=== PATIENT | female | born 1950 | race Caucasian/White ===

== ENCOUNTER 2021-12-31 14:26 | Inpatient (IN) ==
[2021-12-31] MEDS ORDERED: SODIUM CHLORIDE 0.9% 500 ML IV ONE (15:27)
[2021-12-31] MEDS ORDERED: dexAMETHasone**PF** 10 MG/ML VIAL IV ONE (15:27)
--- NOTE | 2021-12-31 15:33 | Emergency Department Note ---
Impression & Plan Seizure, Glioblastoma multiforme of brain, Hypomagnesemia, Elevated troponin ED Provider Note NAME: KING LOPEZ AGE: 71 SEX: F ARRIVES VIA: Ambulance INFORMANT: EMS CHIEF COMPLAINT: Seizure PLAN: Disposition: Admit MEDICAL DECISION MAKING: The patient is a pleasant 71-year-old woman with a past medical history of Glioblastoma multiforme of the brain status post chemotherapy and radiation who presents to the emergency department accompanied by her and neighbor for evaluation of seizure-like episode that occurred prior to arrival. The reports that she was feeling weak this morning and took a nap early in the morning but then upon getting up and walking to the couch he noticed her chronic right-sided weakness become even more pronounced and she sat on the couch. She then describes did not feel well and suddenly began shaking her right arm and becoming unresponsive for several minutes. Following the sensation of this episode she was unable to speak as she had been. Her baseline prior to this episode was with ongoing right upper extremity and lower extremity weakness but able to use her right side to some degree to ambulate and grasp things. She has fluctuating ability to speak sometimes using the incorrect words or not understanding direction but other times able to do so. They deny that the patient is on any steroids or seizure medicines. They deny that she was ever on any seizure medicines. On arrival the patient is fatigued, but alert to self but confused to situation and place. Afebrile. HR 100s, BP 140s/90s and VS otherwise stable. She is able to follow commands with her left upper, bilateral lower extremities. She is u nable to follow commands with her right upper extremity and appears to have complete anesthesia of the right upper extremity even to pain. Given the patient's new onset seizures in the setting of her GBM she was treated empirically with 10 mg of IV dexamethasone and 20/kg of IV Keppra. EKG without overt acute ischemia. Chest x-ray negative for acute cardiopulmonary process. WBC 4K nonspecific. H/H and platelets within normal limits. Chemistry without metabolic acidosis. Magnesium 1.4 with repletion initiated. High-sensitivity troponin 16.6, nonspecific. Lipase is not elevated. UA with 1+ ketones consistent with the patient's clinical dry appearance. No evidence of infection. COVID-19 RNA, SARA test was negative. CT of the head was performed and demonstrates stable to improved findings with decrease in size of the left lobular parietal periventricular mass with improved mass-effect and decrease in size of left temporal horn dilatation when compared to April 2021. Note is made of peripheral hyperdense foci within the lesion that favor post treatment changes with a small amount of hemorrhage less likely. Case was discussed with [facility] [place], Dr. Alberto. Appreciate consultation/recommendations and reports that her described imaging findings are similar to her recent studies in their facility. Stable GBM findings on imaging and presentation that is consistent with seizure reasonable to keep the patient here for further management of this as there is no specialized care that is needed at this time. Agrees with continuing Keppra starting at 500 twice daily and increasing if additional treatment is needed. Given stable imaging findings no need to continue steroids at this time. Case was discussed with [place]. Vanegas, [facility] [place], who will evaluate the patient for admission. Triage Nursing notes reviewed and agree them. Prior medical records reviewed Vital Signs: reviewed and remarkable for tachycardia/hypertension. Differential diagnosis: Epilepsy, infection, hypoglycemia, electrolyte abnormalities, cardiac sources, intracerebral event, trauma, toxicologic, neurologic, syncope, as well as other pathologies. ER treatment provided: See below. Diagnostics interpreted by me: ECG: Normal sinus rhythm, 91 bpm, no ectopy, no overt ST elevation or depression, QTC 477, QRS 86. Cardiac Monitoring: An order for continuous cardiac monitoring was placed and demonstrated Normal sinus rhythm, 91 bpm, no ectopy. Laboratory studies: See below Imaging studies: See below Consultation(s): Dr. Alberto, [facility] Neuro[place]. Dr. Vanegas, [facility] [place]. HPI: The patient is a pleasant 71-year-old woman with a past medical history of Glioblastoma multiforme of the brain status post chemotherapy and radiation who presents to the emergency department accompanied by her and neighbor for evaluation of seizure-like episode that occurred prior to arrival. The reports that she was feeling weak this morning and took a nap early in the morning but then upon getting up and walking to the couch he noticed her chronic right-sided weakness become even more pronounced and she sat on the couch. She then describes did not feel well and suddenly began shaking her right arm and becoming unresponsive for several minutes. Following the sensation of this episode she was unable to speak as she had been. Her baseline prior to this episode was with ongoing right upper extremity and lower extremity weakness but able to use her right side to some degree to ambulate and grasp things. She has fluctuating ability to speak sometimes using the incorrect words or not understanding direction but other times able to do so. They deny that the patient is on any steroids or seizure medicines. They deny that she was ever on any seizure medicines. ROS: See above HPI for pertinent positives & negatives. A total of 10 systems reviewed and were otherwise negative. VITALS:See Below PHYSICAL EXAMINATION: GENERAL: Awake, alert, fatigued-appearing, in no distress, BMI 36.4. HENT: Normocephalic, atraumatic. Oropharynx with dry mucous membranes and otherwise unremarkable. EYES: Normal conjunctiva. Sclera non-icteric. EOMI. No nystamgus. PEARRL. NECK: Supple. No nuchal rigidity. FROM. No JVD. RESPIRATORY: Clear to auscultation. CARDIAC: Tachycardic rate, normal rhythm. Extremities warm and well perfused. Pulses equal. ABDOMEN: Soft, non-distended. No tenderness to palpation. No rebound or guarding. No masses. RECTAL: Deferred. MUSCULOSKELETAL: Chest examination reveals no tenderness. The back is symmetrical on inspection without obvious abnormality. There is no CVA tenderness to palpation. No joint edema. LOWER EXTREMITIES: Calves are equal size bilaterally and non-tender. No edema. No discoloration. NEURO: She is able to follow commands with her left upper, bilateral lower ext remities. She is unable to follow commands with her right upper extremity and appears to have complete anesthesia of the right upper extremity. SKIN: No rash or jaundice noted. ED COURSE: Critical Care: I have personally spent greater than 75 minutes of critical care time in the direct management of this patient. This includes bedside care, interpretation of diagnostic studies, and testing, discussion with consultants, patient, and family members, and other required patient management activities. This 75 minutes is in excess of all separately billable procedures. Williams Ramos MD Past Med/Surg History Medical History Alert and oriented will have difficulty finding the "right words" at times. little feeling in the right arm and right leg. uses walker. Chronic steroid use GBM (glioblastoma multiforme) Biopsy 04/13/21. no surgery. had radiation treatments, finished in June 2021. Glioblastoma multiforme of brain (04/13/21) Hyperlipidemia Hypertension Lichen simplex chronicus Obesity Type 2 diabetes mellitus IDDM Surgical History History of blepharoplasty bilateral History of cataract surgery Left eye History of colonoscopy History of dental surgery Status post bilateral knee replacements Family History Mother Hypertension Father , 84yo Dementia Hypertension Stroke Brother Stroke Cancer of kidney Sister Hypertension Daughter No problems noted. Other Family history non-contributory Social History Smoking Status: Never smoker Second Hand Exposure: No; Hx Alcohol Use: No Hx Substance Use: No Preferred Language: American Communication Ability: Impaired Communication Ability Comment: aphasia Visual Impairment: No Limitations Hearing Ability: Hard of Hearing Insurance Clerk Required: No Beliefs That Will Affect Care: None marital status: Current Living Situation: Family Current Living Situation Comment: and daughter are caregivers current occupational status: retired current occupation: Teacher Other Information That Helps Us Care for You: No Feels Safe at Home: Yes Safety Concerns: Feels Safe At This Time caffeine: Yes (1 cup/day) during the past year weight has: decreased > 10 lbs Assistive Devices: Glasses and Walker Allergies Allergies Allergy/AdvReac Type Severity Reaction Status Date / Time No Known Allergies Allergy Unknown * Verified 12/31/21 15:08 Home Meds Home Medications Medication Instructions Recorded Confirmed atorvastatin 40 mg tablet 40 mg PO HS 03/31/21 12/31/21 irbesartan 75 mg tablet 75 mg PO QAM 03/31/21 12/31/21 metformin 1,000 mg tablet 1,000 mg PO BID 03/31/21 12/31/21 ondansetron HCl 8 mg tablet 8 mg PO Q8H PRN Nausea 05/10/21 12/31/21 fluoxetine 10 mg capsule (Prozac) 10 mg PO QAM 05/31/21 12/31/21 docusate sodium 100 mg capsule 100 mg PO BID PRN Constipation 12/31/21 12/31/21 insulin glargine 100 unit/mL (3 20 unit subcut HS 12/31/21 12/31/21 mL) subcutaneous pen (Lantus Solostar U-100 Insulin) nystatin 100,000 unit/gram topical 1 applic topical TID 12/31/21 12/31/21 cream temozolomide 100 mg capsule 200 mg PO UD 12/31/21 12/31/21 temozolomide 140 mg capsule 140 mg PO UD 12/31/21 12/31/21 Results & Data (ED) Vital Signs Vital Signs - 24 hr 12/31/21 14:30 12/31/21 15:02 12/31/21 16:05 Temperature 36.4 C L Temperature Source Oral Pulse Rate 102 H 85 Pulse Rate [Radial] Pulse Rhythm Regular Pulse Rhythm [Radial] Pulse Strength [Radial] Respiratory Rate 17 18 Respiratory Effort / Characteristics Non-Labored Spontaneous Respiratory Depth Normal Respiratory Pattern Regular Blood Pressure 141/98 H Blood Pressure [Left Arm] Blood Pressure Mean 112 Blood Pressure Mean [Left Arm] Blood Pressure Position Lying Blood Pressure Position [Left Arm] Pulse Oximetry 97 100 99 Oxygen Delivery Method Room Air Room Air Room Air Sepsis Recent Fever Within 48 Hours No Sepsis New/Unexplained Change in Mental Status Yes Sepsis Action Taken by Nursing No Action Required 12/31/21 16:05 Temperature Temperature Source Pulse Rate Pulse Rate [Radial] 85 Pulse Rhythm Pulse Rhythm [Radial] Regular Pulse Strength [Radial] Normal Respiratory Rate 18 Respiratory Effort / Characteristics Non-Labored Spontaneous Respiratory Depth Normal Respiratory Pattern Regular Blood Pressure Blood Pressure [Left Arm] 143/85 H Blood Pressure Mean Blood Pressure Mean [Left Arm] 104 Blood Pressure Position Blood Pressure Position [Left Arm] Lying Pulse Oximetry 98 Oxygen Delivery Method Room Air Sepsis Recent Fever Within 48 Hours Sepsis New/Unexplained Change in Mental Status Sepsis Action Taken by Nursing Laboratory Data Attestation: I reviewed the patient's lab results. Result diagrams: 12/31/21 14:46 12/31/21 14:46 Lab Results 12/31/21 12/31/21 12/31/21 Range/Units 14:46 14:46 14:46 WBC 4.44 L (4.8-10.8) K/ul RBC 4.14 (3.93-5.22) M/uL Hgb 12.7 (12.0-16.0) g/dl Hct 40.6 (34.1-44.9) % MCV 98.1 (80.0-100.0) fL MCH 30.7 (25.0-34.0) pg MCHC 31.3 L (32.0-36.0) g/dL RDW Std Deviation 50.4 H (36.4-46.3) fL RDW Coeff of Meghan 13.9 (11.5-14.5) % Plt Count 151 (130-400) K/uL MPV 12.0 (9.4-12.3) fL Immature Gran % (Auto) 0.2 % Neut % (Auto) 79.7 % Lymph % (Auto) 10.1 % [place] % (Auto) 8.6 % Eos % (Auto) 0.9 % Baso % (Auto) 0.5 % Neut # (Auto) 3.54 (1.4-6.5) K/uL Lymph # (Auto) 0.45 L (1.2-3.4) K/uL [place] # (Auto) 0.38 (0.24-0.82) K/uL Eos # (Auto) 0.04 (0-0.50) K/uL Baso # (Auto) 0.02 (0-0.2) K/uL Immature Gran # (Auto) 0.01 (0.00-0.02) K/uL PT 10.6 (9.0-12.0) Seconds INR 1.0 (0.9-1.1) APTT 23.5 (21.0-31.0) Seconds PTT Ratio 0.9 Sodium 138 (136-145) mmol/L Potassium 4.0 (3.5-5.1) mmol/L Chloride 102 (98-107) mmol/L Carbon Dioxide 23 (21-32) mmol/L Anion Gap 13 H (3-11) BUN 8 (6-23) mg/dl Creatinine 0.53 L (0.6-1.2) mg/dl Est Cr Clr Drug Dosing 122.9 ml/min Est GFR ( Amer) 111.5 ml/min Est GFR (Non-Af Amer) 96.2 ml/min BUN/Creatinine Ratio 15.1 (10-20) Glucose 226 H (70-99(Fasting)) mg/dl Calcium 9.3 (8.5-10.1) mg/dl Phosphorus 3.8 (2.5-4.9) mg/dl Magnesium 1.4 L (1.7-2.4) mg/dl Total Bilirubin 0.5 (0.2-1.0) mg/dl AST 19 (13-39) U/L ALT 12 (7-52) U/L Alkaline Phosphatase 55 (34-104) U/L Troponin I High Sens 16.6 H (0-14) pg/ml Total Protein 7.1 (6.0-8.3) gm/dl Albumin 4.1 (3.4-5.0) gm/dl Globulin 3.0 (2.5-4.0) gm/dl Albumin/Globulin Ratio 1.4 (0.9-2) Lipase 52 (11-82) U/L Urine Color Urine Appearance (Clear) Urine pH (4.5-7.5) Ur Specific [place] (1.000-1.030) Urine Protein (Negative) Urine Glucose (UA) (Negative) Urine Ketones (Negative) Urine Blood (Negative) Urine Nitrite (Negative) Urine Bilirubin (Negative) Urine Urobilinogen (Negative) Ur Leukocyte Esterase (Negative) Urine WBC (Auto) (0-5) /hpf Urine RBC (Auto) (0-4) /hpf U Hyaline Cast (Auto) (0-5) /lpf U Epithel Cells (Auto) (0-5) /lpf Urine Bacteria (Auto) (Negative) SARS-CoV-2, RNA, NAAT (NEGATIVE) 12/31/21 12/31/21 Range/Units 15:42 16:03 WBC (4.8-10.8) K/ul RBC (3.93-5.22) M/uL Hgb (12.0-16.0) g/dl Hct (34.1-44.9) % MCV (80.0-100.0) fL MCH (25.0-34.0) pg MCHC (32.0-36.0) g/dL RDW Std Deviation (36.4-46.3) fL RDW Coeff of Meghan (11.5-14.5) % Plt Count (130-400) K/uL MPV (9.4-12.3) fL Immature Gran % (Auto) % Neut % (Auto) % Lymph % (Auto) % [place] % (Auto) % Eos % (Auto) % Baso % (Auto) % Neut # (Auto) (1.4-6.5) K/uL Lymph # (Auto) (1.2-3.4) K/uL [place] # (Auto) (0.24-0.82) K/uL Eos # (Auto) (0-0.50) K/uL Baso # (Auto) (0-0.2) K/uL Immature Gran # (Auto) (0.00-0.02) K/uL PT (9.0-12.0) Seconds INR (0.9-1.1) APTT (21.0-31.0) Seconds PTT Ratio Sodium (136-145) mmol/L Potassium (3.5-5.1) mmol/L Chloride (98-107) mmol/L Carbon Dioxide (21-32) mmol/L Anion Gap (3-11) BUN (6-23) mg/dl Creatinine (0.6-1.2) mg/dl Est Cr Clr Drug Dosing ml/min Est GFR ( Amer) ml/min Est GFR (Non-Af Amer) ml/min BUN/Creatinine Ratio (10-20) Glucose (70-99(Fasting)) mg/dl Calcium (8.5-10.1) mg/dl Phosphorus (2.5-4.9) mg/dl Magnesium (1.7-2.4) mg/dl Total Bilirubin (0.2-1.0) mg/dl AST (13-39) U/L ALT (7-52) U/L Alkaline Phosphatase (34-104) U/L Troponin I High Sens (0-14) pg/ml Total Protein (6.0-8.3) gm/dl Albumin (3.4-5.0) gm/dl Globulin (2.5-4.0) gm/dl Albumin/Globulin Ratio (0.9-2) Lipase (11-82) U/L Urine Color Yellow Urine Appearance Clear (Clear) Urine pH 6.5 (4.5-7.5) Ur Specific [place] 1.015 (1.000-1.030) Urine Protein 1+ H (Negative) Urine Glucose (UA) 2+ H (Negative) Urine Ketones 1+ H (Negative) Urine Blood Negative (Negative) Urine Nitrite Negative (Negative) Urine Bilirubin Negative (Negative) Urine Urobilinogen Negative (Negative) Ur Leukocyte Esterase Negative (Negative) Urine WBC (Auto) 1-5 (0-5) /hpf Urine RBC (Auto) 0-4 (0-4) /hpf U Hyaline Cast (Auto) 1-5 (0-5) /lpf U Epithel Cells (Auto) >30 H (0-5) /lpf Urine Bacteria (Auto) Negative (Negative) SARS-CoV-2, RNA, NAAT NEGATIVE (NEGATIVE) Administered Medications Atorvastatin Calcium (Atorvastatin 40 Mg Tab) 40 mg PO HS MARIA Stop: 01/30/22 20:59 Last Admin: 12/31/21 22:06 Dose: Not Given Documented By: JACKIE Acetaminophen (Ofirmev) 1,000 mg in 100 mls @ 400 mls/hr IV Q8H PRN PRN Reason: pain or fever Stop: 01/03/22 21:56 Last Infusion: 12/31/21 22:38 Dose: 0 mls/hr Documented By: Admin: 12/31/21 22:23 Dose: 400 mls/hr Documented By: JACKIE Insulin Aspart (Insulin Aspart Per Unit) 0 units SC Q6 MARIA Stop: 01/31/22 01:59 Last Admin: 01/01/22 02:19 Dose: 3 units Documented By: JACKIE Co-signed By: JUAN LUIS Insulin Glargine (Lantus Per Unit Charge) 10 units SQ BID MARIA Stop: 01/30/22 20:59 Last Admin: 12/31/21 22:06 Dose: 10 units Documented By: JACKIE Co-signed By: NATHALIE Magnesium Chloride (Magnesium Chloride W/Calcium 64mg Delayed Rel Tab) 64 mg PO BID MARIA Stop: 01/30/22 20:59 Last Admin: 12/31/21 22:06 Dose: Not Given Documented By: JACKIE Nystatin (Nystatin Cr 15 Gm Tube) 1 appln EXT TID MARIA Stop: 01/30/22 20:59 Last Admin: 12/31/21 22:07 Dose: 1 appln Documented By: JACKIE Discontinued Medications Dexamethasone Sodium Phosphate (DexamethasonePf 10 Mg/Ml Vial) 10 mg IV NOW ONE Stop: 12/31/21 15:28 Last Admin: 12/31/21 15:49 Dose: 10 mg Documented By: JENNYFER Sodium Chloride (Nss) 500 mls @ 999 mls/hr IV .Q31M ONE Stop: 12/31/21 15:57 Last Infusion: 12/31/21 16:15 Dose: 0 mls/hr Documented By: Admin: 12/31/21 15:50 Dose: 999 mls/hr Documented By: JENNYFER Levetiracetam 2,000 mg/ Sodium (Chloride) 270 mls @ 999 mls/hr IV NOW STA Stop: 12/31/21 15:43 Last Infusion: 12/31/21 16:15 Dose: 0 mls/hr Documented By: Admin: 12/31/21 15:50 Dose: 999 mls/hr Documented By: JENNYFER Magnesium Sulfate/Dextrose (Magnesium Sulfate / D5w) 1 gm in 100 mls @ 100 mls/hr IV Q1H MARIA Stop: 12/31/21 19:21 Last Infusion: 12/31/21 23:11 Dose: 0 mls/hr Documented By: Admin: 12/31/21 22:06 Dose: 100 mls/hr Documented By: Infusion: 12/31/21 20:52 Dose: 0 mls/hr Documented By: Admin: 12/31/21 18:05 Dose: 100 mls/hr Documented By: JENNYFER Insulin Aspart (Insulin Aspart Per Unit) 0 units SC ACHS MAIRA Stop: 01/30/22 20:59 Last Admin: 12/31/21 22:05 Dose: 4 units Documented By: JACKIE Co-signed By: NATHALIE Magnesium Sulfate/Dextrose (Magnesium Sulfate 1gm / D5w Bag) Confirm Administered Dose 1 gm IV .STK-MED ONE Stop: 12/31/21 21:36 Last Admin: 12/31/21 22:07 Dose: Not Given Documented By: JACKIE Ondansetron HCl (Ondansetron Inj 2 Mg/Ml 2 Ml Vial) Confirm Administered Dose 4 mg .ROUTE .STK-MED ONE Stop: 12/31/21 16:22 Last Admin: 12/31/21 16:26 Dose: 4 mg Documented By: JENNYFER Imaging Data Radiologist's Impression: Head CT 12/31/21 15:[address] DOSE: 1035.81 mGycm HISTORY: Seizure, h/o GBM, TECHNIQUE: Multiaxial CT images of the head were performed without the use of intravenous contrast. Automated exposure control was utilized for this study. A dose lowering technique was utilized adhering to the principles of ALARA. Comparison: Head CT outside hospital 04/05/2021 and 04/13/2021. Radiation oncology head CT 05/03/2021. Findings: The paranasal sinuses and mastoid air cells are clear. The calvarium and skull base are intact. There is again noted an approximately 4 cm lobular hypodense left parietal periventricular lesion. Exact dimensions are difficult to determine due to the infiltrative appearance of this lesion. This demonstrates peripheral hyperdense foci which was also seen on the prior studies and has slightly improved. This lesion appears to have slightly decreased in size compared to the 2020 examinations. This results in mass effect along the atrium of the left lateral ventricle and mild dilatation of the left temporal horn. This has also slightly improved in the interval. A peripheral hyperdense foci favor posttreatment changes and/or calcification. Small amount of hemorrhage associated with the mass is considered less likely but not entirely excluded. There is no midline shift or acute hemorrhage. Mild periventricular white matter hypodensity remains unchanged. This could be due to a combination of microvascular ischemic changes and post radiation change. Impression: 1. Slight decrease in size in the lobular left parietal periventricular mass with improved mass effect along the atrium of the left lateral ventricle and decrease in size in the left temporal horn dilatation. 2. There are scattered peripheral hyperdense foci within this lesion which favor posttreatment changes and/or calcification. A small amount of hemorrhage associated with this mass could also have a similar appearance but is considered less likely. Overall, this has also improved in the interval. 3. No acute infarct or midline shift. ACT 112: Negative or not required by law. Electronically signed by: J Carlos Borges M.D. 12/31/2021 5:09 PM Discharge Plan Visit Data Chief Complaint: Altered Mental Status Stated Complaint: AMS Hx Brain Tumor ED Provider: Williams Ramos Discharge Problem: Seizure, Glioblastoma multiforme of brain, Hypomagnesemia, Elevated troponin Patient Disposition: Admitted As Inpatient Discharge Instructions Interventions: ED Discharge Assessment Last Done: 12/31/21 19:51
--- NOTE | 2021-12-31 15:47 | XRay Report ---
XR chest 1V portable HISTORY: 71 years-old Female Chest Pain acute atypical chest pain COMPARISON: 01/20/2011 TECHNIQUE: AP view of the chest FINDINGS: Cardiac silhouette is enlarged. Lungs are hypoinflated. No pneumothorax, pleural effusion, airspace c onsolidation or overt pulmonary edema. Bones of the chest appear grossly intact. Degenerative changes of the shoulders and spine. IMPRESSION: Hypoinflation without acute process. ACT 112: Negative or not required by law. The above report was generated using voice recognition software. It may contain grammatical, syntax o r spelling errors. Electronically signed by: Luis Medina M.D. 12/31/2021 3:45 PM
--- NOTE | 2021-12-31 15:55 | Electrocardiogram Report ---
Test Reason : Blood Pressure : / mmHG Vent. Rate : 091 BPM Atrial Rate : 091 BPM P-R Int : 144 ms QRS Dur : 086 ms QT Int : 388 ms P-R-T Axes : 004 -43 041 degrees QTc Int : 477 ms Normal sinus rhythm Left axis deviation Abnormal ECG When compared with ECG of 20-JAN-2011 10:52, Vent. rate has increased BY 36 BPM T wave inversion no longer evident in Inferior leads QT has lengthened Confirmed by Jace Berry ([id number]) on 12/31/2021 3:55:13 PM Referred By: REFERRED SELF Confirmed By:Jace Berry
[2021-12-31] MEDS ORDERED: ONDANSETRON INJ 2 MG/ML 2 ML VIAL ONE (16:21)
[2021-12-31 16:24] LABS: Appearance Urine Clear (Clear); Bacteria Urine Automated Negative (Negative); Bilirubin Urine Negative (Negative); Blood Urine Negative (Negative); Color Urine Yellow; Epithelial Cell Urine Auto >30 /lpf (0-5); Glucose Urine UA 2+ (Negative); Ketones Urine 1+ (Negative); Leukocyte Esterase Urine Negative (Negative); Nitrite Urine Negative (Negative); Protein Urine 1+ (Negative); RBC Urine Automated 0-4 /hpf (0-4); Specific Gravity Urine 1.015 (1.000-1.030); Urobilinogen Urine Negative (Negative); pH Urine 6.5 (4.5-7.5)
[2021-12-31 16:43] LABS: Basophils # (auto) 0.02 K/uL (0-0.2); Basophils % (auto) 0.5 %; Eosinophils # (auto) 0.04 K/uL (0-0.50); Eosinophils % (auto) 0.9 %; Hematocrit (blood only) 40.6 % (34.1-44.9); Hemoglobin 12.7 g/dl (12.0-16.0); Immature Granulocytes # (auto) 0.01 K/uL (0.00-0.02); Immature Granulocytes % (auto) 0.2 %; Lymphocytes # (auto) 0.45 K/uL (1.2-3.4); Lymphocytes % (auto) 10.1 %; Mean Corpuscular Hemoglobin 30.7 pg (25.0-34.0); Mean Corpuscular Hgb Conc 31.3 g/dL (32.0-36.0); Mean Corpuscular Volume 98.1 fL (80.0-100.0); Monocytes # (auto) 0.38 K/uL (0.24-0.82); Monocytes % (auto) 8.6 %; Neutrophils # (auto) 3.54 K/uL (1.4-6.5); Neutrophils % (auto) 79.7 %; Platelet Count 151 K/uL (130-400); RDW Coefficient of Variation 13.9 % (11.5-14.5); RDW Standard Deviation 50.4 fL (36.4-46.3); Red Blood Count 4.14 M/uL (3.93-5.22); White Blood Count 4.44 K/ul (4.8-10.8)
[2021-12-31 16:53] LABS: Partial Thromboplastin Ratio 0.9; Partial Thromboplastin Time 23.5 Seconds (21.0-31.0); Prothrombin Time 10.6 Seconds (9.0-12.0)
[2021-12-31 16:55] LABS: Albumin Globulin Ratio 1.4 (0.9-2); Albumin Level 4.1 gm/dl (3.4-5.0); BUN Creatinine Ratio 15.1 (10-20); Bilirubin,Total 0.5 mg/dl (0.2-1.0); Calcium 9.3 mg/dl (8.5-10.1); Creatinine Clr Calc Pharmacy 122.9 ml/min; Est GFR (African American) 111.5 ml/min; Est GFR (Non-African American) 96.2 ml/min; Magnesium 1.4 mg/dl (1.7-2.4); Phosphorus 3.8 mg/dl (2.5-4.9); Total Protein 7.1 gm/dl (6.0-8.3)
[2021-12-31 17:01] LABS: Troponin I High Sensitivity 16.6 pg/ml (0-14)
--- NOTE | 2021-12-31 17:10 | CT Scan Report ---
HEAD CT NONCONTRAST CT DOSE: 1035.81 mGycm HISTORY: Seizure, h/o GBM, TECHNIQUE: Multiaxial CT images of the head were performed without the use of intravenous contrast. A utomated exposure control was utilized for this study. A dose lowering technique was utilized adheri ng to the principles of ALARA. Comparison: Head CT outside hospital 04/05/2021 and 04/13/2021. Radiation oncology head CT 05/03/2021 . Findings: The paranasal sinuses and mastoid air cells are clear. The calvarium and skull base are int act. There is again noted an approximately 4 cm lobular hypodense left parietal periventricular lesio n. Exact dimensions are difficult to determine due to the infiltrative appearance of this lesion. Thi s demonstrates peripheral hyperdense foci which was also seen on the prior studies and has slightly i mproved. This lesion appears to have slightly decreased in size compared to the 2020 examinations. Th is results in mass effect along the atrium of the left lateral ventricle and mild dilatation of the l eft temporal horn. This has also slightly improved in the interval. A peripheral hyperdense foci favo r posttreatment changes and/or calcification. Small amount of hemorrhage associated with the mass is considered less likely but not entirely excluded. There is no midline shift or acute hemorrhage. Mild periventricular white matter hypodensity remains unchanged. This could be due to a combination of mi crovascular ischemic changes and post radiation change. Impression: 1. Slight decrease in size in the lobular left parietal periventricular mass with improved mass effec t along the atrium of the left lateral ventricle and decrease in size in the left temporal horn dilat ation. 2. There are scattered peripheral hyperdense foci within this lesion which favor posttreatment change s and/or calcification. A small amount of hemorrhage associated with this mass could also have a tl lar appearance but is considered less likely. Overall, this has also improved in the interval. 3. No acute infarct or midline shift. ACT 112: Negative or not required by law. Electronically signed by: J Carlos Borges M.D. 12/31/2021 5:09 PM
--- NOTE | 2021-12-31 18:04 | History & Physical Report ---
Date of Service December 31, 2021 Assessment & Plan (1) Glioblastoma multiforme of brain: Plan: Alize, hx of glioblastoma - Discussed w/ [facility] [place] [facility]. Imaging consistant with prior, low suspicion for stroke. Recommend seizure treatment -Loaded with Keppra in the emergency department Continue Keppra 500 mg twice daily. Ativan 4 mg for breakthrough seizure if needed Hypomagnesemic, got 1 g in ER. Hypomagnesemia likely contributing to seizure threshold Trend magnesium, goal level 2.0 Patient has had difficult repletion in the past, will add Slow-Mag to minimize urinary excretion Continue IV repletion at this time, patient at risk of lowered threshold Patient does have aphasia at baseline which was worsened following her seizure, gradually improving No prior treatment with antiseizure medications EKG on admission: Sinus rhythm. QT 477. No acute ischemic findings - MRI w/ contrast pending. Persistent arm numbness and residual aphasia, will obtain EEG as well. Neurology consulted - BSG 180s on arrival, 230 AM prior to seizure Glioblastoma Multiforme Currently on Temodar/bevacizumab Has received radiation therapy, last in April Received Decadron in ER, additional Decadron was not recommended on consultation with neurosurgery MRI ordered, pending May obtain EEG in the morning, neurology consulted CT was reviewed with neurosurgery on admission as above, no acute change in imaging. CT does note some areas which could be concerning for small areas of hemorrhage, these are unchanged from prior. Type 2 diabetes mellitus On glargine 20 units nightly, metformin 1 g twice daily - SSI based on basal Lantus 20 units nightly: Lantus 10 twice daily, correction factor 40, carb ratio 15 Hypertension Irbesartan 75 mg p.o. every morning DVT prophylaxis: SCDs Diet: Type II DM if able to pass speech/swallow bedside assessment and alert enough Disposition: PCU with seizure monitoring Code Status: Surrogate DM Cornell Zuñiga [phone] or [phone], or Diana Rodriguez (daughter) [phone]. DNR/DNI, confirmed with family at bedside (2) Seizure: (3) Type 2 diabetes mellitus: (4) Hyperlipidemia: (5) Hypertension: (6) GBM (glioblastoma multiforme): (7) Hypomagnesemia: History of Present Illness Primary Care Provider: Annette Wolff is a 71-year-old female with a past medical history of glioblastoma multiforme [facility] on Temodar/Mvasi and who last had radiation in April who presents to the ER after worsening right greater than left-sided weakness followed by an episode of unresponsiveness with myoclonic jerking which lasted a few minutes and residual aphasia which gradually improved. Patient was seen in the ER CThead was discussed with neurosurgery Dr. Blackburn[employer] that all imaging was consistent with their prior records and that there were no new changes, and that her symptoms were likely caused by a seizure. Stroke was not suspected as an underlying etiology. Transfer to higher level of care was discussed between neurosurgery in the ER, patient was not recommended for transfer but was recommended for seizure treatment and to be followed overnight. Mariella is seen w . Patient is alert and answers most questions, fatigued and occasionally falls asleep. She has difficulty with residual aphasia, collateral was collected with the assistance of her Upon waking this morning and worsened weakness on her R side compared to normal Ate breakfast, was tired, and layed down for a few hours Got up later in the day and was very weak, could barely walk to her recliner. Sat in the recliner and started to feel discomfort in her R hand which started to curl up and then started shaking. Shortly after her whoel body started shaking, eyes rolled back, and had funny sounds while breathing and seemed to pass out. called 911. Episode lasted a few minutes. No bowel or bladder incontinence. Currently speech 50-60% back to normal, does have residual aphasia. No impaired cognition at baseline. Pt has chronic diarrhea for months off and on, is on Avastan and is thought to be a side effect. Denies abdominal pain Endorses chronic right arm and leg pain/paresthesia, thought to be neuropathic. Tried gabapentin once but had severe sedation with this and has deferred further. Patient reports she is hungry and would like to eat Medical History: Reviewed Medications: Reviewed took medications this morning Surgical History: Reviewed Allergies: Reviewed Social History: No current or former tobacco use. No alcohol use. No medical marijuana Code Status: Surrogate DM Cornell Zuñiga [phone] or [phone], or Diana Rodriguez (daughter) [phone]. DNR/DNI, confirmed with family at bedside Allergies Allergy/AdvReac Type Severity Reaction Status Date / Time No Known Allergies Allergy Unknown * Verified 12/31/21 15:08 Home Medications Medication Instructions Recorded Confirmed Type atorvastatin 40 mg tablet 40 mg PO HS 03/31/21 12/31/21 History irbesartan 75 mg tablet 75 mg PO QAM 03/31/21 12/31/21 History metformin 1,000 mg tablet 1,000 mg PO BID 03/31/21 12/31/21 History ondansetron HCl 8 mg tablet 8 mg PO Q8H PRN Nausea 05/10/21 12/31/21 History fluoxetine 10 mg capsule (Prozac) 10 mg PO QAM 05/31/21 12/31/21 History docusate sodium 100 mg capsule 100 mg PO BID PRN Constipation 12/31/21 12/31/21 History insulin glargine 100 unit/mL (3 20 unit subcut HS 12/31/21 12/31/21 History mL) subcutaneous pen (Lantus Solostar U-100 Insulin) nystatin 100,000 unit/gram topical 1 applic topical TID 12/31/21 12/31/21 History cream temozolomide 100 mg capsule 200 mg PO UD 12/31/21 12/31/21 History temozolomide 140 mg capsule 140 mg PO UD 12/31/21 12/31/21 History Past Med/Surg History Medical History (Updated 12/31/21 @ 18:32 by Bertin Vanegas MD) Alert and oriented will have difficulty finding the "right words" at times. little feeling in the right arm and right leg. uses walker. Chronic steroid use GBM (glioblastoma multiforme) Biopsy 04/13/21. no surgery. had radiation treatments, finished in June 2021. Glioblastoma multiforme of brain (04/13/21) Hyperlipidemia Hypertension Lichen simplex chronicus Obesity Type 2 diabetes mellitus IDDM Surgical History History of blepharoplasty bilateral History of cataract surgery Left eye History of colonoscopy History of dental surgery Status post bilateral knee replacements Family History Mother Hypertension Father , 84yo Dementia Hypertension Stroke Brother Stroke Cancer of kidney Sister Hypertension Daughter No problems noted. Other Family history non-contributory Social History Smoking Status: Never smoker Second Hand Exposure: No; Hx Alcohol Use: No Hx Substance Use: No Preferred Language: Slovenian Communication Ability: Effective Visual Impairment: No Limitations Hearing Ability: Hard of Hearing Office Manager Executive Assistant Required: No Beliefs That Will Affect Care: None marital status: Current Living Situation: Spouse current occupational status: retired current occupation: Teacher Feels Safe at Home: Yes caffeine: Yes (1 cup/day) during the past year weight has: decreased > 10 lbs Assistive Devices: Glasses and Walker Physical Exam Physical Exam: General: Somnolent, but awakens easily. Oriented to name, place, and year. Aphasia is intermittent, but prominent. HEENT: Atraumatic, normocephalic. Vision and hearing grossly intact Pulm: CTAB A&P. -wheezes, -rales, -rhonchi. Symmetrical chest rise. No increase in work of breathing. No respiratory distress. Cardiac: RRR, -mrg. Radial pulses intact and symmetrical. Abdominal: Nontender, nondistended, soft. BS present. CRANIAL NERVES: II: Pupils equal and reactive, no relative afferent pupillary defect, no VF cuts III, IV, : EOM intact, no gaze preference or deviation, no nystagmus. V: Near absent sensation in V1/V2/V3 on right side of face compared to left VII: no asymmetry, no nasolabial fold flattening VIII: normal hearing to speech IX, X: normal palatal elevation, no uvular deviation XI: Weak effort to right-sided head turning and shoulder shrug XII: midline tongue protrusion MOTOR: RUE: 0/5 strength of right upper extremity, no activation of order dispatcher chief muscles on attempt LUE: 4/5 Shoulder flexion, extension, abduction, adduction 4/5 Elbow flexion/extension, wrist flexion/extension 4/5 order dispatcher chief strength, finger flexion/extension, interosseus RLE: Able to wiggle toes and plantarflex/dorsiflex ankle weakly, is not able to flex at the hip. LLE: 4/5 to hip flexion/extension, knee flexion/extension, ankle dorsiflexion/plantarflexion SENSORY: Normal to touch in left upper and lower extremity. Absent sensation of soft touch and pinprick in right upper, right lower extremity Results & Data Results & Data ([facility]) Vital Signs (Past 12 Hours) Vital Signs Temp Pulse Pulse Resp BP BP Pulse Ox 12/31/21 16:05 85 18 143/85 H 98 12/31/21 16:05 85 18 99 12/31/21 15:02 100 12/31/21 14:30 36.4 C L 102 H 17 141/98 H 97 O2 Del Method 12/31/21 16:05 Room Air 12/31/21 16:05 Room Air 12/31/21 15:02 Room Air 12/31/21 14:30 Room Air PG Care Time/CCT Total # of Minutes Spent Total Time Spent with Patient: Total time spent is greater than 50% in coordination of care (as documented) at patient's floor/unit and/or counseling patient: Coding Level of Care Code 37187 Initial Inpt Care Lvl 3 Diagnoses Glioblastoma multiforme of brain C71.9 Seizure R56.9 Type 2 diabetes mellitus E11.9 Hyperlipidemia E78.5 Hypertension I10 GBM (glioblastoma multiforme) C71.9 Hypomagnesemia E83.42
[2021-12-31] MEDS: MAGNESIUM SULFATE / D5W 1 GM/100 ML BAG IV SCH ×2 (18:05→22:06)
[2021-12-31] MEDS ORDERED: TEMOZOLOMIDE 140 MG PO SCH (20:04)
[2021-12-31] MEDS ORDERED: CARBOHYDRATES FOR HYPOGLYCEMIA PO PRN (20:04)
[2021-12-31] MEDS ORDERED: TEMOZOLOMIDE 100 MG CAPSULE PO SCH (20:04)
[2021-12-31] MEDS ORDERED: POLYETHYLENE (MIRALAX) 17 GM PACK PO PRN (20:04)
[2021-12-31] MEDS ORDERED: DEXTROSE 50% 50 ML SYRINGE IV PRN (20:04)
[2021-12-31] MEDS ORDERED: GLUCOSE 40% GEL 15 GM TUBE PO PRN (20:04)
[2021-12-31] MEDS ORDERED: ACETAMINOPHEN 325 MG TAB PO PRN (20:04)
[2021-12-31] MEDS ORDERED: GLUCAGON FOR INJ 1 MG VIAL SQ PRN (20:04)
[2021-12-31] MEDS ORDERED: DOCUSATE SODIUM 100 MG CAP PO PRN (20:04)
[2021-12-31] MEDS ORDERED: GLUCOSE 10 TAB/TUBE PO PRN (20:04)
[2021-12-31] MEDS ORDERED: LORazepam 2 MG/1 ML VIAL IV PRN (20:04)
[2021-12-31] MEDS ORDERED: ONDANSETRON 4 MG OD TAB PO PRN (20:11)
[2021-12-31] MEDS ORDERED: INSULIN ASPART PER UNIT SC SCH (21:00)
[2021-12-31] MEDS ORDERED: ATORVASTATIN 40 MG TAB PO SCH (21:00)
[2021-12-31] MEDS ORDERED: MAGNESIUM SULFATE 1GM / D5W BAG IV ONE (21:35)
--- NOTE | 2021-12-31 21:49 | Neurology Consultation ---
Date of Consultation December 31, 2021 Assessment & Plan (1) Seizure: The patient had new onset seizure. Based on description, this is a partial onset seizure with secondary generalization. (2) GBM (glioblastoma multiforme): The patient has history of GBM, who received radiation therapy and currently on chemotherapy. (3) Hypomagnesemia: The patient has history of hypomagnesemia. Current serum level was low as well. Plan Assessment and plan: 1. New onset seizure, partial onset with secondary generalization. Impression: The most likely cause of new onset seizure is brain tumor. Cranial radiation therapy, current chemotherapy, and hypomagnesemia are potential contributors. Plan: Keep the patient on levetiracetam 500 mg twice a day. Dose adjustment as needed. Lorazepam 1 to 2 mg IV, as needed prolonged generalized seizure, lasting more than 3 minutes. If the patient stays seizure-free, with improvement of cognitive functioning, we will not consider EEG. Otherwise, EEG is indicated to rule out ongoing epileptogenic activity. N.p.o. until speech pathology evaluation. Seizure precautions. Management of metabolic derangements including hypomagnesemia. If the patient stays stable without recurrent seizures, then she can be discharged home in 24 to 48 hours. Follow-up at neurology clinic in a month. 2. Glioblastoma multiforme Impression: The patient was diagnosed with GBM located at left temporoparietal lesion, status post cranial radiation therapy and currently on Temodar with Mvasi. Head CT did not show interval change from prior imaging studies. The case was discussed with neurosurgery. Plan: Brain MRI with and without contrast. There is no indication for steroid treatment based on imaging findings. The patient will stay on current chemotherapy and will be followed by hematolo gy oncology as scheduled before. Thank you for the consultation. History of Present Illness Reason for Consultation: New onset seizure. Requesting Physician: Bertin Guerrero MD Attending Physician: Bertin Vanegas MD History of Present Illness The patient is a 71-year-old right-handed pleasant female, who was brought to emergency department today, after the patient had a new onset generalized seizure. The patient was diagnosed with left cerebral glioblastoma multiforme which was treated with radiation therapy with last treatment in April 2021, and currently on Temodar with Mvasi. The patient has baseline right-sided arm and leg weakness, paresthesia, and right arm probably neuropathic pain, and expressive aphasia. Today, the patient was sitting in the couch, and suddenly had right arm myoclonic activity, which was generalized, with loss of consciousness. The patient bit her lip, but no urinary incontinence was reported. According to family, the patient was unconscious for several minutes after myoclonic activity. Then, she regained her consciousness gradually but she was very groggy and exhausted. In emergency department, there was worsening of her baseline right-sided weakness and expressive aphasia. The patient was loaded with levetiracetam. Head CT showed no interval change compared to prior images. Neurosurgery was consulted and they reviewed imaging studies and he did not recommend steroid treatment at this time. Since admission, the patient has been stable, without any recurrent seizures. Her mental status, worsening aphasia and right-sided hemiparesis has been improving gradually but not back to baseline yet. She tolerates levetiracetam well. I have reviewed the patient's chart and visualized imaging studies personally. I have discussed the case with the patient and family. I have answered their questions in detail. Allergies Allergy/AdvReac Type Severity Reaction Status Date / Time No Known Allergies Allergy Unknown * Verified 12/31/21 15:08 Home Medications Medication Instructions Recorded Confirmed Type atorvastatin 40 mg tablet 40 mg PO HS 03/31/21 12/31/21 History irbesartan 75 mg tablet 75 mg PO QAM 03/31/21 12/31/21 History metformin 1,000 mg tablet 1,000 mg PO BID 03/31/21 12/31/21 History ondansetron HCl 8 mg tablet 8 mg PO Q8H PRN Nausea 05/10/21 12/31/21 History fluoxetine 10 mg capsule (Prozac) 10 mg PO QAM 05/31/21 12/31/21 History docusate sodium 100 mg capsule 100 mg PO BID PRN Constipation 12/31/21 12/31/21 History insulin glargine 100 unit/mL (3 20 unit subcut HS 12/31/21 12/31/21 History mL) subcutaneous pen (Lantus Solostar U-100 Insulin) nystatin 100,000 unit/gram topical 1 applic topical TID 12/31/21 12/31/21 History cream temozolomide 100 mg capsule 200 mg PO UD 12/31/21 12/31/21 History temozolomide 140 mg capsule 140 mg PO UD 12/31/21 12/31/21 History Patient History Medical History Alert and oriented will have difficulty finding the "right words" at times. little feeling in the right arm and right leg. uses walker. Chronic steroid use GBM (glioblastoma multiforme) Biopsy 04/13/21. no surgery. had radiation treatments, finished in June 2021. Glioblastoma multiforme of brain (04/13/21) Hyperlipidemia Hypertension Lichen simplex chronicus Obesity Type 2 diabetes mellitus IDDM Surgical History History of blepharoplasty bilateral History of cataract surgery Left eye History of colonoscopy History of dental surgery Status post bilateral knee replacements Family History Mother Hypertension Father , 84yo Dementia Hypertension Stroke Brother Stroke Cancer of kidney Sister Hypertension Daughter No problems noted. Other Family history non-contributory Social History Smoking Status: Never smoker Second Hand Exposure: No; Hx Alcohol Use: No Hx Substance Use: No Preferred Language: Mosotho Communication Ability: Impaired Communication Ability Comment: aphasia Visual Impairment: No Limitations Hearing Ability: Hard of Hearing Operator Assistant I Cementing Required: No Beliefs That Will Affect Care: None marital status: Current Living Situation: Family Current Living Situation Comment: and daughter are caregivers current occupational status: retired current occupation: Teacher Other Information That Helps Us Care for You: No Feels Safe at Home: Yes Safety Concerns: Feels Safe At This Time caffeine: Yes (1 cup/day) during the past year weight has: decreased > 10 lbs Assistive Devices: Glasses and Walker Review of Systems Review of Systems: All systems reviewed & are unremarkable except as noted in HPI & below Physical Exam Physical Exam: General Examination: Constitutional: Well developed person in no acute distress. HENT: Normal exam with inspection other than slightly swollen lower lip.. CV: Hearth rhythm is regular. Neck: Supple, no carotid bruits. Lungs: Non-labored and comfortable breathing. Abdomen: Soft, non-tender, non-distended. Skin: No rash or ecchymosis. Extremities: No edema or cyanosis NEUROLOGICAL EXAMINATION: Mental Status: Somnolent with baseline cognitive decline. Cranial Nerves: Grossly intact. No nystagmus. Funduscopy: Normal looking optic discs. Motor: Right upper extremity is 2 out of 5, right lower extremity 3- out of 5, left upper and lower extremity strength is 5-/5. Tone: Slightly increased tone in the right upper and lower extremities. Sensory: Decreased sensation right upper and lower extremities with painful dysesthesia in right upper extremity. Coordination: No dysmetria with left [id number] testing. Speech: Limited verbal output with word finding difficulty. Comprehension is slow and impaired. Gait: Unable to assess. DTRs: 2+ in right UE and LE and 1+ in left UE and LE. Probable Babinsky on the right. Results & Data ([facility]) Vital Signs (Past 12 Hours) Vital Signs Temp Pulse Pulse Resp BP BP Pulse Ox 12/31/21 19:55 37.1 C 91 H 16 136/85 95 12/31/21 19:51 12/31/21 18:10 84 18 130/85 93 12/31/21 16:05 85 18 143/85 H 98 12/31/21 16:05 85 18 99 12/31/21 15:02 100 12/31/21 14:30 36.4 C L 102 H 17 141/98 H 97 O2 Del Method 12/31/21 19:55 Room Air 12/31/21 19:51 Room Air 12/31/21 18:10 Room Air 12/31/21 16:05 Room Air 12/31/21 16:05 Room Air 12/31/21 15:02 Room Air 12/31/21 14:30 Room Air Laboratory Results Laboratory Results - last 24 hr 12/31/21 12/31/21 12/31/21 14:46 14:46 14:46 WBC 4.44 L RBC 4.14 Hgb 12.7 Hct 40.6 MCV 98.1 MCH 30.7 MCHC 31.3 L RDW Std Deviation 50.4 H RDW Coeff of Meghan 13.9 Plt Count 151 MPV 12.0 Immature Gran % (Auto) 0.2 Neut % (Auto) 79.7 Lymph % (Auto) 10.1 [place] % (Auto) 8.6 Eos % (Auto) 0.9 Baso % (Auto) 0.5 Neut # (Auto) 3.54 Lymph # (Auto) 0.45 L [place] # (Auto) 0.38 Eos # (Auto) 0.04 Baso # (Auto) 0.02 Immature Gran # (Auto) 0.01 PT 10.6 INR 1.0 APTT 23.5 PTT Ratio 0.9 Sodium 138 Potassium 4.0 Chloride 102 Carbon Dioxide 23 Anion Gap 13 H BUN 8 Creatinine 0.53 L Est Cr Clr Drug Dosing 122.9 Est GFR ( Amer) 111.5 Est GFR (Non-Af Amer) 96.2 BUN/Creatinine Ratio 15.1 Glucose 226 H POC Glucose Lactate Calcium 9.3 Phosphorus 3.8 Magnesium 1.4 L Total Bilirubin 0.5 AST 19 ALT 12 Alkaline Phosphatase 55 Total Creatine Kinase Troponin I High Sens 16.6 H Total Protein 7.1 Albumin 4.1 Globulin 3.0 Albumin/Globulin Ratio 1.4 Lipase 52 Urine Color Urine Appearance Urine pH Ur Specific [place] Urine Protein Urine Glucose (UA) Urine Ketones Urine Blood Urine Nitrite Urine Bilirubin Urine Urobilinogen Ur Leukocyte Esterase Urine WBC (Auto) Urine RBC (Auto) U Hyaline Cast (Auto) U Epithel Cells (Auto) Urine Bacteria (Auto) SARS-CoV-2, RNA, NAAT 12/31/21 12/31/21 12/31/21 15:42 16:03 18:34 WBC RBC Hgb Hct MCV MCH MCHC RDW Std Deviation RDW Coeff of Meghan Plt Count MPV Immature Gran % (Auto) Neut % (Auto) Lymph % (Auto) [place] % (Auto) Eos % (Auto) Baso % (Auto) Neut # (Auto) Lymph # (Auto) [place] # (Auto) Eos # (Auto) Baso # (Auto) Immature Gran # (Auto) PT INR APTT PTT Ratio Sodium Potassium Chloride Carbon Dioxide Anion Gap BUN Creatinine Est Cr Clr Drug Dosing Est GFR ( Amer) Est GFR (Non-Af Amer) BUN/Creatinine Ratio Glucose POC Glucose Lactate 2.0 Calcium Phosphorus Magnesium Total Bilirubin AST ALT Alkaline Phosphatase Total Creatine Kinase Troponin I High Sens Total Protein Albumin Globulin Albumin/Globulin Ratio Lipase Urine Color Yellow Urine Appearance Clear Urine pH 6.5 Ur Specific [place] 1.015 Urine Protein 1+ H Urine Glucose (UA) 2+ H Urine Ketones 1+ H Urine Blood Negative Urine Nitrite Negative Urine Bilirubin Negative Urine Urobilinogen Negative Ur Leukocyte Esterase Negative Urine WBC (Auto) 1-5 Urine RBC (Auto) 0-4 U Hyaline Cast (Auto) 1-5 U Epithel Cells (Auto) >30 H Urine Bacteria (Auto) Negative SARS-CoV-2, RNA, NAAT NEGATIVE 12/31/21 12/31/21 18:35 21:29 WBC RBC Hgb Hct MCV MCH MCHC RDW Std Deviation RDW Coeff of Meghan Plt Count MPV Immature Gran % (Auto) Neut % (Auto) Lymph % (Auto) [place] % (Auto) Eos % (Auto) Baso % (Auto) Neut # (Auto) Lymph # (Auto) [place] # (Auto) Eos # (Auto) Baso # (Auto) Immature Gran # (Auto) PT INR APTT PTT Ratio Sodium Potassium Chloride Carbon Dioxide Anion Gap BUN Creatinine Est Cr Clr Drug Dosing Est GFR ( Amer) Est GFR (Non-Af Amer) BUN/Creatinine Ratio Glucose POC Glucose 261 H Lactate Calcium Phosphorus Magnesium Total Bilirubin AST ALT Alkaline Phosphatase Total Creatine Kinase 34 Troponin I High Sens 46.0 H D Total Protein Albumin Globulin Albumin/Globulin Ratio Lipase Urine Color Urine Appearance Urine pH Ur Specific [place] Urine Protein Urine Glucose (UA) Urine Ketones Urine Blood Urine Nitrite Urine Bilirubin Urine Urobilinogen Ur Leukocyte Esterase Urine WBC (Auto) Urine RBC (Auto) U Hyaline Cast (Auto) U Epithel Cells (Auto) Urine Bacteria (Auto) SARS-CoV-2, RNA, NAAT Diagnostic Findings Chest X-Ray 12/31/21 15:27 XR chest 1V portable HISTORY: 71 years-old Female Chest Pain acute atypical chest pain COMPARISON: 01/20/2011 TECHNIQUE: AP view of the chest FINDINGS: Cardiac silhouette is enlarged. Lungs are hypoinflated. No pneumothorax, pleural effusion, airspace consolidation or overt pulmonary edema. Bones of the chest appear grossly intact. Degenerative changes of the shoulders and spine. IMPRESSION: Hypoinflation without acute process. ACT 112: Negative or not required by law. The above report was generated using voice recognition software. It may contain grammatical, syntax or spelling errors. Electronically signed by: Luis Medina M.D. 12/31/2021 3:[address] 12/31/21 15:[address] DOSE: 1035.81 mGycm HISTORY: Seizure, h/o GBM, TECHNIQUE: Multiaxial CT images of the head were performed without the use of intravenous contrast. Automated exposure control was utilized for this study. A dose lowering technique was utilized adhering to the principles of ALARA. Comparison: Head CT outside hospital 04/05/2021 and 04/13/2021. Radiation oncology head CT 05/03/2021. Findings: The paranasal sinuses and mastoid air cells are clear. The calvarium and skull base are intact. There is again noted an approximately 4 cm lobular hypodense left parietal periventricular lesion. Exact dimensions are difficult to determine due to the infiltrative appearance of this lesion. This demonstrates peripheral hyperdense foci which was also seen on the prior studies and has slightly improved. This lesion appears to have slightly decreased in size compared to the 2020 examinations. This results in mass effect along the atrium of the left lateral ventricle and mild dilatation of the left temporal horn. This has also slightly improved in the interval. A peripheral hyperdense foci favor posttreatment changes and/or calcification. Small amount of hemorrhage associated with the mass is considered less likely but not entirely excluded. There is no midline shift or acute hemorrhage. Mild periventricular white matter hypodensity remains unchanged. This could be due to a combination of microvascular ischemic changes and post radiation change. Impression: 1. Slight decrease in size in the lobular left parietal periventricular mass with improved mass effect along the atrium of the left lateral ventricle and decrease in size in the left temporal horn dilatation. 2. There are scattered peripheral hyperdense foci within this lesion which favor posttreatment changes and/or calcification. A small amount of hemorrhage associated with this mass could also have a similar appearance but is considered less likely. Overall, this has also improved in the interval. 3. No acute infarct or midline shift. ACT 112: Negative or not required by law. Electronically signed by: J Carlos Borges M.D. 12/31/2021 5:09 PM
[2021-12-31] MEDS: LANTUS PER UNIT CHARGE SQ SCH (22:06)
[2021-12-31] MEDS: MAGNESIUM CHLORIDE W/CALCIUM 64MG DELAYED REL TAB PO SCH (22:06)
[2021-12-31] MEDS: NYSTATIN CR 15 GM TUBE EXT SCH (22:07)
[2021-12-31] MEDS: ACETAMINOPHEN 1,000 MG/100 ML VIAL IV PRN (22:23)
[2021-12-31] MEDS ORDERED: Nursing to Pharmacy Communication SCH (22:45)
[2022-01-01] MEDS: INSULIN ASPART PER UNIT SC SCH ×2 (02:19→06:30)
[2022-01-01] MEDS: ACETAMINOPHEN 1,000 MG/100 ML VIAL IV PRN (06:30)
[2022-01-01 08:13] LABS: Hematocrit (blood only) 40.5 % (34.1-44.9); Hemoglobin 13.1 g/dl (12.0-16.0); Immature Granulocytes # (auto) 0.01 K/uL (0.00-0.02); Immature Granulocytes % (auto) 0.3 %; Lymphocytes # (auto) 0.48 K/uL (1.2-3.4); Lymphocytes % (auto) 12.9 %; Mean Corpuscular Hemoglobin 30.4 pg (25.0-34.0); Mean Corpuscular Hgb Conc 32.3 g/dL (32.0-36.0); Mean Platelet Volume 11.6 fL (9.4-12.3); Monocytes # (auto) 0.19 K/uL (0.24-0.82); Monocytes % (auto) 5.1 %; Neutrophils # (auto) 3.04 K/uL (1.4-6.5); Neutrophils % (auto) 81.7 %; Platelet Count 158 K/uL (130-400); RDW Coefficient of Variation 13.8 % (11.5-14.5); RDW Standard Deviation 47.2 fL (36.4-46.3); Red Blood Count 4.31 M/uL (3.93-5.22); White Blood Count 3.72 K/ul (4.8-10.8)
[2022-01-01 08:58] LABS: Albumin Globulin Ratio 1.4 (0.9-2); Albumin Level 3.8 gm/dl (3.4-5.0); Bilirubin,Total 0.6 mg/dl (0.2-1.0); Calcium 9.1 mg/dl (8.5-10.1); Creatinine Clr Calc Pharmacy 126.5 ml/min; Est GFR (African American) 113.7 ml/min; Est GFR (Non-African American) 98.1 ml/min; Globulin 2.7 gm/dl (2.5-4.0); Magnesium 1.8 mg/dl (1.7-2.4); Total Protein 6.5 gm/dl (6.0-8.3)
[2022-01-01] MEDS ORDERED: levETIRAcetam 500 MG in 0.9 % SODIUM CHLORIDE 100 ML IV SCH (09:00)
[2022-01-01] MEDS ORDERED: FLUoxetine HCL 10 MG CAP PO SCH (09:00)
[2022-01-01] MEDS ORDERED: IRBESARTAN 75 MG TAB PO SCH (09:00)
[2022-01-01] MEDS ORDERED: Nursing to Pharmacy Communication SCH (09:00)
[2022-01-01] MEDS: MAGNESIUM CHLORIDE W/CALCIUM 64MG DELAYED REL TAB PO SCH (09:10)
[2022-01-01] MEDS: NYSTATIN CR 15 GM TUBE EXT SCH ×2 (09:12→13:02)
[2022-01-01 09:21] LABS: Estimated Average Glucose 192 mg/dl; Hemoglobin A1C 8.3 % (4.5-5.6)
[2022-01-01] MEDS ORDERED: GADOBUTROL 10ML VIAL IV ONE (09:58)
[2022-01-01] MEDS: LANTUS PER UNIT CHARGE SQ SCH (10:58)
--- NOTE | 2022-01-01 11:02 | Magnetic Resonance Report ---
MRI OF THE BRAIN COMBO CLINICAL HISTORY: Seizure. History of glioblastoma. COMPARISON STUDY: CT of the brain dated 12/31/2021. MRI of the brain dated 04/06/2021. TECHNIQUE: MRI of the brain was performed utilizing various T1 and T2-weighted sequences in the axial , sagittal, and coronal planes. Contrast-enhanced sequences were acquired following the administratio n of 10 cc of Gadavist. The examination is performed using the seizure protocol. FINDINGS: Brain parenchyma: Again seen is a lobular appearing left parietal periventricular mass. This measures approximately 3 x 4 x 3 cm and shows a serpiginous T1 hyperintense signal. There is more focal T1 hy perintense signal on the posterior left aspect of the falx on axial image #14 measuring up to 2.2 cm. This shows susceptibility artifact on the gradient imaging, and this could represent hemorrhage vers us calcification. There is minimal surrounding mass effect. No midline shift is identified. The lesio n shows restricted diffusion. Postcontrast enhancement cannot be assessed due to the intrinsic T1 sig nal hyperintensity. The lesion minimally crosses midline in the posterior corpus callosum. No additio nal lesion is suggested on the postcontrast series. There is age-related involutional change. Advance d confluent white matter signal abnormality could represent advancement radiopathic change and/or pos t radiation change. There is no restricted diffusion typical for acute ischemia. No extra-axial flui d collection is seen. The cerebellar tonsils are normal in configuration. Ventricles, sulci, and cisterns: Prominent secondary to involutional change. Pituitary and sella: Unremarkable. Intracranial vasculature: Normal flow voids are maintained at the skull base. Orbits: The bony orbits are grossly intact. Orbital contents are normal in appearance noting bilatera l ocular lens implants. Sinuses and mastoids: Clear. Calvarium: Unremarkable. Cervical cord: Partially visualized cervical spinal cord is normal in morphology and signal intensity . IMPRESSION: 1. Difficult study to interpret due to treatment related change. 2. Again seen is a lobular left parietal periventricular mass with significant T1 signal hyperintensi ty. This lesion has decreased in size as compared to the 04/06/2021 outside MRI examination. 3. There are large foci of T1 signal hyperintensity within this mass lesion which also show susceptib ility on gradient imaging. When correlated with yesterday's CT scan is likely represent stress-relate d change/calcification. Intralesional hemorrhage is not excluded. 4. Internal enhancement cannot be evaluated due to intrinsic T1 signal hyperintensity throughout the lesion. Residual tumor is not excluded. 5. There is no midline shift or evidence of acute ischemia. ACT 112: Negative or not required by law. Electronically signed by: Jackson Ellison M.D. 01/01/2022 11:00 AM
[2022-01-01] MEDS ORDERED: INSULIN ASPART PER UNIT SC SCH (11:30)
[2022-01-01 11:43] VITALS: BP 91/63; PULSE 71; TEMP 98.6; O2SAT 95
--- NOTE | 2022-01-01 14:26 | Discharge Summary ---
Date of Service January 01, 2022 Admission HPI Per Admitting Provider Mariella is a 71-year-old female with a past medical history of glioblastoma multiforme [facility] Temodar/Mvasi and who last had radiation in April who presents to the ER after worsening right greater than left-sided weakness followed by an episode of unresponsiveness with myoclonic jerking which lasted a few minutes and residual aphasia which gradually improved. Patient was seen in the ER CThead was discussed with neurosurgery Dr. Blackubrn. [place] that all imaging was consistent with their prior records and that there were no new changes, and that her symptoms were likely caused by a seizure. Stroke was not suspected as an underlying etiology. Transfer to higher level of care was discussed between neurosurgery in the ER, patient was not recommended for transfer but was recommended for seizure treatment and to be followed overnight. Mariella is seen w . Patient is alert and answers most questions, fatigued and occasionally falls asleep. She has difficulty with residual aphasia, collateral was collected with the assistance of her Upon waking this morning and worsened weakness on her R side compared to normal Ate breakfast, was tired, and layed down for a few hours Got up later in the day and was very weak, could barely walk to her recliner. Sat in the recliner and started to feel discomfort in her R hand which started to curl up and then started shaking. Shortly after her whoel body started shaking, eyes rolled back, and had funny sounds while breathing and seemed to pass out. called 911. Episode lasted a few minutes. No bowel or bladder incontinence. Currently speech 50-60% back to normal, does have residual aphasia. No impaired cognition at baseline. Pt has chronic diarrhea for months off and on, is on Avastan and is thought to be a side effect. Denies abdominal pain Endorses chronic right arm and leg pain/paresthesia, thought to be neuropathic. Tried gabapentin once but had severe sedation with this and has deferred further. Patient reports she is hungry and would like to eat Medical History: Reviewed Medications: Reviewed took medications this morning Surgical History: Reviewed Allergies: Reviewed Social History: No current or former tobacco use. No alcohol use. No medical marijuana Code Status: Surrogate DM Cornell Zuñiga [phone] or [phone], or Diana Rodriguez (daughter) [phone]. DNR/DNI, confirmed with family at bedside Principal Diagnosis Seizure d/t glioblastoma Discharge Exam GENERAL: 71 yo Well-developed, well-nourished obese WF. NAD. LUNGS: Clear to auscultation bilaterally. CARDIOVASCULAR: Regular rate and rhythm. ABDOMEN: Soft, non-tender and non-distended. BS normoactive x 4 quad. EXTREMITIES: No edema. Non-tender. Peripheral pulses +2/4. NEUROLOGIC: A&O x3. chronic expressive aphasia. chronic numbness and weakness in RUE PSYCHIATRIC: Cooperative. Appropriate mood and affect. SKIN: Warm, dry, intact. No rashes or lesions. Discharge Data Allergies Allergy/AdvReac Type Severity Reaction Status Date / Time No Known Allergies Allergy Unknown * Verified 12/31/21 15:08 Consultations 12/31/21 17:56 ED Decision to Admit Stat 01/01/22 09:00 Consult Neurology Routine Ordered Studies Chest X-Ray 12/31/21 15:27 XR chest 1V portable HISTORY: 71 years-old Female Chest Pain acute atypical chest pain COMPARISON: 01/20/2011 TECHNIQUE: AP view of the chest FINDINGS: Cardiac silhouette is enlarged. Lungs are hypoinflated. No pneumothorax, pleural effusion, airspace consolidation or overt pulmonary edema. Bones of the chest appear grossly intact. Degenerative changes of the shoulders and spine. IMPRESSION: Hypoinflation without acute process. ACT 112: Negative or not required by law. The above report was generated using voice recognition software. It may contain grammatical, syntax or spelling errors. Electronically signed by: Luis Medina M.D. 12/31/2021 3:[address] 12/31/21 15:[address] DOSE: 1035.81 mGycm HISTORY: Seizure, h/o GBM, TECHNIQUE: Multiaxial CT images of the head were performed without the use of intravenous contrast. Automated exposure control was utilized for this study. A dose lowering technique was utilized adhering to the principles of ALARA. Comparison: Head CT outside hospital 04/05/2021 and 04/13/2021. Radiation oncology head CT 05/03/2021. Findings: The paranasal sinuses and mastoid air cells are clear. The calvarium and skull base are intact. There is again noted an approximately 4 cm lobular hypodense left parietal periventricular lesion. Exact dimensions are difficult to determine due to the infiltrative appearance of this lesion. This demonstrates peripheral hyperdense foci which was also seen on the prior studies and has slightly improved. This lesion appears to have slightly decreased in size compared to the 2020 examinations. This results in mass effect along the atrium of the left lateral ventricle and mild dilatation of the left temporal horn. This has also slightly improved in the interval. A peripheral hyperdense foci favor posttreatment changes and/or calcification. Small amount of hemorrhage associated with the mass is considered less likely but not entirely excluded. There is no midline shift or acute hemorrhage. Mild periventricular white matter hypodensity remains unchanged. This could be due to a combination of microvascular ischemic changes and post radiation change. Impression: 1. Slight decrease in size in the lobular left parietal periventricular mass with improved mass effect along the atrium of the left lateral ventricle and decrease in size in the left temporal horn dilatation. 2. There are scattered peripheral hyperdense foci within this lesion which favor posttreatment changes and/or calcification. A small amount of hemorrhage associated with this mass could also have a similar appearance but is considered less likely. Overall, this has also improved in the interval. 3. No acute infarct or midline shift. ACT 112: Negative or not required by law. Electronically signed by: J Carlos Borges M.D. 12/31/2021 5:09 PM Brain MRI 01/01/22 00:00 MRI OF THE BRAIN COMBO CLINICAL HISTORY: Seizure. History of glioblastoma. COMPARISON STUDY: CT of the brain dated 12/31/2021. MRI of the brain dated 04/06/2021. TECHNIQUE: MRI of the brain was performed utilizing various T1 and T2-weighted sequences in the axial, sagittal, and coronal planes. Contrast-enhanced sequences were acquired following the administration of 10 cc of Gadavist. The examination is performed using the seizure protocol. FINDINGS: Brain parenchyma: Again seen is a lobular appearing left parietal periventricular mass. This measures approximately 3 x 4 x 3 cm and shows a serpiginous T1 hyperintense signal. There is more focal T1 hyperintense signal on the posterior left aspect of the falx on axial image #14 measuring up to 2.2 cm. This shows susceptibility artifact on the gradient imaging, and this could represent hemorrhage versus calcification. There is minimal surrounding mass effect. No midline shift is identified. The lesion shows restricted diffusion. Postcontrast enhancement cannot be assessed due to the intrinsic T1 signal hyperintensity. The lesion minimally crosses midline in the posterior corpus callosum. No additional lesion is suggested on the postcontrast series. There is age-related involutional change. Advanced confluent white matter signal abnormality could represent advancement radiopathic change and/or post radiation change. There is no restricted diffusion typical for acute ischemia. No extra- axial fluid collection is seen. The cerebellar tonsils are normal in configuration. Ventricles, sulci, and cisterns: Prominent secondary to involutional change. Pituitary and sella: Unremarkable. Intracranial vasculature: Normal flow voids are maintained at the skull base. Orbits: The bony orbits are grossly intact. Orbital contents are normal in appearance noting bilateral ocular lens implants. Sinuses and mastoids: Clear. Calvarium: Unremarkable. Cervical cord: Partially visualized cervical spinal cord is normal in morphology and signal intensity. IMPRESSION: 1. Difficult study to interpret due to treatment related change. 2. Again seen is a lobular left parietal periventricular mass with significant T1 signal hyperintensity. This lesion has decreased in size as compared to the 04/06/2021 outside MRI examination. 3. There are large foci of T1 signal hyperintensity within this mass lesion which also show susceptibility on gradient imaging. When correlated with yesterday's CT scan is likely represent stress-related change/calcification. Intralesional hemorrhage is not excluded. 4. Internal enhancement cannot be evaluated due to intrinsic T1 signal hyperintensity throughout the lesion. Residual tumor is not excluded. 5. There is no midline shift or evidence of acute ischemia. ACT 112: Negative or not required by law. Electronically signed by: Jackson Ellison M.D. 01/01/2022 11:00 AM Hospital Course (1) Seizure: - Discussed w/ [facility] [place] Neurosurg. Imaging consistant with prior, low suspicion for stroke. Recommend seizure treatment -Loaded with Keppra in the emergency department Continue Keppra 500 mg twice daily. Ativan 4 mg for breakthrough seizure if needed Hypomagnesemic, got 1 g in ER. Hypomagnesemia likely contributing to seizure threshold Trend magnesium, goal level 2.0 Patient has had difficult repletion in the past, will add Slow-Mag to minimize urinary excretion Continue IV repletion at this time, patient at risk of lowered threshold Patient does have aphasia at baseline which was worsened following her seizure, gradually improving No prior treatment with antiseizure medications EKG on admission: Sinus rhythm. QT 477. No acute ischemic findings - MRI w/ contrast pending. Persistent arm numbness and residual aphasia, will obtain EEG as well. Neurology consulted - BSG 180s on arrival, 230 AM prior to seizure - Neuro consulted, seen by Dr. Rees, no need for EEG, agreed with Keppra and to continue - Will need to f/u with neuro in clinic in 1 month (2) Glioblastoma multiforme of brain: Currently on Temodar/bevacizumab Has received radiation therapy, last in April Received Decadron in ER, additional Decadron was not recommended on consultation with neurosurgery MRI ordered, pending--results as above, not significantly changed May obtain EEG in the morning, neurology consulted CT was reviewed with neurosurgery on admission as above, no acute change in imaging. CT does note some areas which could be concerning for small areas of hemorrhage, these are unchanged from prior. (3) Type 2 diabetes mellitus: On glargine 20 units nightly, metformin 1 g twice daily - SSI based on basal Lantus 20 units nightly: Lantus 10 twice daily, correction factor 40, carb ratio 15 (4) Hyperlipidemia: - Continue atorvastatin (5) Hypertension: Irbesartan 75 mg p.o. every morning (6) Hypomagnesemia: - replaced/resolved Plan At this time, pt is medically stable for discharge home. No further seizure activity observed and family/pt anxious for her to return home. Interested in additional care for her at home, case management giving family a list of agencies. Otherwise, she will be discharged home on Keppra 500mg BID as advised. To follow up in neuro clinic in 1 month. Advise pcp follow up within 1 week and to f/u as scheduled with her oncologist. Plan has been d/w Dr. Syed who has also seen and evaluated patient prior to discharge and is in agreement with aforementioned. Total Time Total Time Spent Total Time Spent (In Minutes): >30 minutes Discharge Plan Discharge Items Patient Disposition: Home - Home Health Services Reason For Visit: SEIZURE, GLIOBLASTOMA Discharge Diagnosis: seizure likely secondary to brain tumor Activity: Resume your previous activity Non-emergency contact: Primary Care Provider, Neurologist and Oncologist Call non-emergency contact if: you have any medication questions and your symptoms worsen Follow-up/Referrals: Annette Evans [Primary Care Provider] - Flaco Rees MD [Physician] - (1 month for seizure follow up) Diet: Carb Consistent or DM2 Addtl Attending Provider Instructions: You were hospitalized due to seizure which is felt to be likely due to your brain tumor. You have been started on anti-seizure medications called Fantasma. This medication needs to be continued. You are to follow up with the neurology clinic in 1 month. Keep all scheduled follow ups with your specialists, including your oncologist in [place]. We advise follow up with your family doctor within 1 week of discharge. If you have any questions following your discharge, you may call the nonemergency number listed on your paperwork. In the event of a medical emergency, call 911. Pending Studies at Discharge: No Stand-Alone Forms: My [facility], Smoking Cessation Medications and DC Order Prescriptions: New levetiracetam [Keppra] 500 mg tablet 500 mg PO BID Qty: 60 0RF Continued ondansetron HCl 8 mg tablet 8 mg PO Q8H PRN (Reason: Nausea) fluoxetine [Prozac] 10 mg capsule 10 mg PO QAM atorvastatin 40 mg tablet 40 mg PO HS metformin 1,000 mg tablet 1,000 mg PO BID irbesartan 75 mg tablet 75 mg PO QAM temozolomide 100 mg capsule 200 mg PO UD nystatin 100,000 unit/gram cream 1 applic TOPICAL TID Rx Instructions: apply to abdominal folds 2-3 times a day until rash resides docusate sodium 100 mg capsule 100 mg PO BID PRN (Reason: Constipation) temozolomide 140 mg capsule 140 mg PO UD insulin glargine [Lantus Solostar U-100 Insulin] 100 unit/mL (3 mL) insulin pen 20 unit SUBCUT HS Discharge Orders: Discharge Order (Routine); Ordered 01/01/22 Ordered By: Melanie Perdue Admission Data Admit Date/Time: 12/31/21 18:08 Attending Provider: Malcom Syed Admit Provider: Bertin Vanegas Primary Care Provider: Annette Evans Other Providers: Bertin Vanegas ; Flaco Rees Other Interventions: Discharge Summary Assessment (RN) Last Done: 01/01/22 14:46 Supervising Physician Co-Signing Physician Notes I personally examined the patient and verified all cazares points of history and exam, discussed case, and agree with decision making with Julieta Perdue. Feels up to going home. Case management assisting with discharge planning. Vitals noted, in general no distress. Getting dressed with assistance of family and nursing. Seizure, glioblastomastable for home as above. Coding Level of Care Code D/C DAY MANAGEMENT >30 MINS Diagnoses Seizure R56.9 Glioblastoma multiforme of brain C71.9 Type 2 diabetes mellitus E11.9 Hyperlipidemia E78.5 Hypertension I10 Hypomagnesemia E83.42
== END 2022-01-01 16:06 | disposition home health service (06) | DRG 55 ==
LOC: ED 14:26 → 4W 18:08 → SUATTDRO 18:08 → 4W 19:51
DX: E11.9 Type 2 diabetes mellitus without complications; E83.42 Hypomagnesemia; Z79.84 Long term (current) use of oral hypoglycemic drugs; E78.5 Hyperlipidemia, unspecified; I10 Essential (primary) hypertension; Z66 Do not resuscitate; C71.9 Malignant neoplasm of brain, unspecified; R56.9 Unspecified convulsions

== ENCOUNTER 2022-03-10 16:34 | Inpatient (IN) ==
--- NOTE | 2022-03-10 17:06 | Emergency Department Note ---
Impression & Plan Right sided weakness, Glioblastoma multiforme of brain, Falls frequently, Hypomagnesemia ED Provider Note NAME: KING LOPEZ AGE: 71 SEX: F : 1950 ARRIVES VIA: Ambulance INFORMANT: Patient, EMS ED PROVIDER(S): Jace Zavala DO CHIEF COMPLAINT: Fall HPI: The patient is a 71-year-old female who has a history of glioblastoma who presented to the emergency department for an evaluation after having a fall. The patient has a history of falling in the past. She fell recently and struck her head. She is complaining of a slight headache. The patient also had a near fall today where her was able to help her but she was unable to stand and the required lifting help. The patient arrived via ambulance. The patient self states that she has had no changes to her medications. There is no reported seizure. Otherwise the patient has been compliant with her outpatient medication regimen. The patient does not report any hip or back pain. There is no chest pain or difficulty breathing reported. ROS: See above HPI for pertinent positives & negatives. A total of 10 systems reviewed and were otherwise negative. PAST MEDICAL HISTORY: See Below PAST SURGICAL HISTORY: See Below FAMILY HISTORY: See Below SOCIAL HISTORY: See Below HOME MEDICATIONS: See Below ALLERGIES: See Below VITALS: See Below PHYSICAL EXAMINATION: GENERAL: The patient is awake and alert. She is somewhat anxious appearing. EYES: The conjunctivae are clear. The pupils are round and reactive. EARS, NOSE, MOUTH AND THROAT: The nose is without any evidence of any deformity. Mucous membranes are moist. NECK: The neck is nontender and supple. RESPIRATORY: Normal respiratory effort is noted there is no evidence of wheezing rhonchi or rales CARDIOVASCULAR: Regular rate and rhythm noted there no murmurs rubs or gallops normal S1 normal S2. GASTROINTESTINAL: The abdomen is soft. Abdomen is nontender. MUSCULOSKELETAL/EXTREMITIES: There is no evidence of gross deformity full range of motion is noted in the hips and shoulders. SKIN: There is no obvious evidence of any rash. There are no petechiae, pallor or cyanosis noted. NEUROLOGIC: Patient is awake and alert. She has aphasia at baseline and speech is clear and understandable but not appropriate. Strength was symmetric but diminished bilaterally. MEDICAL DECISION MAKING: The patient is a 71-year-old female who presented to the emergency department for an evaluation of weakness. The patient has a history of a left-sided glioblastoma. According to her significant other she has follow-up appointments tomorrow with her primary neurosurgeon. The patient has been having problems with falls recently. She normally is able to ambulate with a walker but recently has been only able to walk with assistance. The patient's had some frequent falls. The patient's significant other called 911 and the patient arrived to the emergency department via ambulance. I discussed the patient's laboratory and radiographic studies with him. Triage Nursing notes reviewed. Prior medical records reviewed Vital Signs: reviewed and remarkable for no significant abnormalities Differential diagnosis: Infection, dehydration, metabolic abnormality, hypo/hyperglycemia, electrolyte disturbance, anemia, hypoxia, cardiac sources, intracerebral event, toxicologic, neurologic, as well as other pathologies. ER treatment provided: See below Diagnostics interpreted by me: ECG: EKG was obtained in the emergency department. My interpretation is normal sinus rhythm at 72 bpm. There is no ectopy. There is no acute ST segment abnormalities noted. This was compared to a tracing from December 31, 2021. No changes were noted. Cardiac Monitoring: An order was placed for continuous cardiac monitoring. The monitor shows a rate of 76 bpm with sinus rhythm. Laboratory studies: As stated above and show below. Imaging studies: See below Consultation(s): I discussed this case with Dr. Epperson Past Med/Surg History Medical History Alert and oriented will have difficulty finding the "right words" at times. little feeling in the right arm and right leg. uses walker. Chronic steroid use GBM (glioblastoma multiforme) Biopsy 04/13/21. no surgery. had radiation treatments, finished in June 2021. Glioblastoma multiforme of brain (04/13/21) Hyperlipidemia Hypertension Lichen simplex chronicus Obesity Type 2 diabetes mellitus IDDM Surgical History History of blepharoplasty bilateral History of cataract surgery Left eye History of colonoscopy History of dental surgery Status post bilateral knee replacements Family History Mother Hypertension Father , 84yo Dementia Hypertension Stroke Brother Stroke Cancer of kidney Sister Hypertension Daughter No problems noted. Other Family history non-contributory Social History Smoking Status: Unknown if ever smoked Second Hand Exposure: No; Hx Alcohol Use: No Hx Substance Use: No Preferred Language: Vietnamese Communication Ability: Impaired Visual Impairment: No Limitations Hearing Ability: Hard of Hearing Dobby [employer]ger Required: No Beliefs That Will Affect Care: None marital status: Current Living Situation: Family Current Living Situation Comment: and daughter are caregivers current occupational status: retired current occupation: Teacher Feels Safe at Home: Yes caffeine: Yes (1 cup/day) during the past year weight has: decreased > 10 lbs Assistive Devices: Glasses, Raised Toilet Seat and Walker Allergies Allergies Allergy/AdvReac Type Severity Reaction Status Date / Time No Known Allergies Allergy Unknown * Verified 12/31/21 15:08 Home Meds Home Medications Medication Instructions Recorded Confirmed atorvastatin 40 mg tablet 40 mg PO HS 03/31/21 12/31/21 irbesartan 75 mg tablet 75 mg PO QAM 03/31/21 12/31/21 metformin 1,000 mg tablet 1,000 mg PO BID 03/31/21 12/31/21 ondansetron HCl 8 mg tablet 8 mg PO Q8H PRN Nausea 05/10/21 12/31/21 fluoxetine 10 mg capsule (Prozac) 10 mg PO QAM 05/31/21 12/31/21 docusate sodium 100 mg capsule 100 mg PO BID PRN Constipation 12/31/21 12/31/21 insulin glargine 100 unit/mL (3 20 unit subcut HS 12/31/21 12/31/21 mL) subcutaneous pen (Lantus Solostar U-100 Insulin) nystatin 100,000 unit/gram topical 1 applic topical TID 12/31/21 12/31/21 cream temozolomide 100 mg capsule 200 mg PO UD 12/31/21 12/31/21 temozolomide 140 mg capsule 140 mg PO UD 12/31/21 12/31/21 Previous Rx's Medication Instructions Recorded levetiracetam 500 mg tablet 500 mg PO BID #60 tabs 01/01/22 (Keppra) Results & Data (ED) Vital Signs Vital Signs - 24 hr 03/10/22 16:25 03/10/22 17:03 03/10/22 17:13 Temperature 36.4 C Temperature Source Oral Pulse Rate 76 88 78 Pulse Rate from SpO2 Sensor 76 Pulse Rhythm Regular Regular Pulse Strength Normal Respiratory Rate 20 22 15 Respiratory Effort / Characteristics Non-Labored Respiratory Depth Normal Blood Pressure 148/76 H Blood Pressure Mean 100 Blood Pressure Position Lying Pulse Oximetry 93 98 100 Oxygen Delivery Method Room Air Room Air Sepsis Recent Fever Within 48 Hours No Sepsis New/Unexplained Change in Mental Status No Sepsis Action Taken by Nursing No Action Required 03/10/22 17:20 03/10/22 17:30 03/10/22 17:30 Temperature Temperature Source Pulse Rate 72 72 Pulse Rate from SpO2 Sensor 72 73 Pulse Rhythm Pulse Strength Respiratory Rate 18 17 Respiratory Effort / Characteristics Respiratory Depth Blood Pressure 112/71 Blood Pressure Mean 84 Blood Pressure Position Pulse Oximetry 100 97 Oxygen Delivery Method Sepsis Recent Fever Within 48 Hours Sepsis New/Unexplained Change in Mental Status Sepsis Action Taken by Nursing 03/10/22 17:40 03/10/22 17:50 03/10/22 18:00 Temperature Temperature Source Pulse Rate 69 75 Pulse Rate from SpO2 Sensor 68 74 Pulse Rhythm Pulse Strength Respiratory Rate 18 21 Respiratory Effort / Characteristics Respiratory Depth Blood Pressure 122/66 Blood Pressure Mean 84 Blood Pressure Position Pulse Oximetry 99 97 Oxygen Delivery Method Sepsis Recent Fever Within 48 Hours Sepsis New/Unexplained Change in Mental Status Sepsis Action Taken by Nursing 03/10/22 18:00 03/10/22 18:10 03/10/22 18:20 Temperature Temperature Source Pulse Rate 72 69 76 Pulse Rate from SpO2 Sensor 73 69 Pulse Rhythm Pulse Strength Respiratory Rate 21 17 15 Respiratory Effort / Characteristics Respiratory Depth Blood Pressure Blood Pressure Mean Blood Pressure Position Pulse Oximetry 100 91 Oxygen Delivery Method Sepsis Recent Fever Within 48 Hours Sepsis New/Unexplained Change in Mental Status Sepsis Action Taken by Nursing 03/10/22 19:00 Temperature Temperature Source Pulse Rate 66 Pulse Rate from SpO2 Sensor Pulse Rhythm Pulse Strength Respiratory Rate 18 Respiratory Effort / Characteristics Respiratory Depth Blood Pressure 140/77 Blood Pressure Mean 98 Blood Pressure Position Pulse Oximetry 96 Oxygen Delivery Method Sepsis Recent Fever Within 48 Hours Sepsis New/Unexplained Change in Mental Status Sepsis Action Taken by Prison Medications Current Medication List: was personally reviewed by me Laboratory Data Attestation: I reviewed the patient's lab results. Result diagrams: 03/10/22 Unknown 03/10/22 Unknown Lab Results 03/10/22 03/10/22 03/10/22 Range/Units 17:29 Unknown Unknown WBC (4.8-10.8) K/ul RBC (3.93-5.22) M/uL Hgb (12.0-16.0) g/dl Hct (34.1-44.9) % MCV (80.0-100.0) fL MCH (25.0-34.0) pg MCHC (32.0-36.0) g/dL RDW Std Deviation (36.4-46.3) fL RDW Coeff of Meghan (11.5-14.5) % Plt Count (130-400) K/uL MPV (9.4-12.3) fL Immature Gran % (Auto) % Neut % (Auto) % Lymph % (Auto) % [place] % (Auto) % Eos % (Auto) % Baso % (Auto) % Neut # (Auto) (1.4-6.5) K/uL Lymph # (Auto) (1.2-3.4) K/uL [place] # (Auto) (0.24-0.82) K/uL Eos # (Auto) (0-0.50) K/uL Baso # (Auto) (0-0.2) K/uL Immature Gran # (Auto) (0.00-0.02) K/uL PT 10.7 (9.0-12.0) Seconds INR 1.0 (0.9-1.1) APTT 24.4 (21.0-31.0) Seconds PTT Ratio 0.9 Sodium 141 (136-145) mmol/L Potassium 4.0 (3.5-5.1) mmol/L Chloride 102 (98-107) mmol/L Carbon Dioxide 29 (21-32) mmol/L Anion Gap 10 (3-11) BUN 10 (6-23) mg/dl Creatinine 0.53 L (0.6-1.2) mg/dl Est Cr Clr Drug Dosing 105.8 ml/min Est GFR ( Amer) 111.5 ml/min Est GFR (Non-Af Amer) 96.2 ml/min BUN/Creatinine Ratio 18.9 (10-20) Glucose 113 H (70-99(Fasting)) mg/dl Calcium 9.8 (8.5-10.1) mg/dl Magnesium 1.5 L (1.7-2.4) mg/dl Total Bilirubin 0.8 (0.2-1.0) mg/dl AST 28 (13-39) U/L ALT 14 (7-52) U/L Alkaline Phosphatase 42 (34-104) U/L Troponin I High Sens 6.2 D (0-14) pg/ml Total Protein 7.2 (6.0-8.3) gm/dl Albumin 4.4 (3.4-5.0) gm/dl Globulin 2.8 (2.5-4.0) gm/dl Albumin/Globulin Ratio 1.6 (0.9-2) TSH (0.300-4.500) uIu/ml Urine Color Urine Appearance (Clear) Urine pH (4.5-7.5) Ur Specific Donnelly (1.000-1.030) Urine Protein (Negative) Urine Glucose (UA) (Negative) Urine Ketones (Negative) Urine Blood (Negative) Urine Nitrite (Negative) Urine Bilirubin (Negative) Urine Urobilinogen (Negative) Ur Leukocyte Esterase (Negative) SARS-CoV-2, RNA, NAAT NEGATIVE (NEGATIVE) 03/10/22 03/10/22 03/10/22 Range/Units Unknown Unknown Unknown WBC 4.63 L (4.8-10.8) K/ul RBC 4.81 (3.93-5.22) M/uL Hgb 14.4 (12.0-16.0) g/dl Hct 43.7 (34.1-44.9) % MCV 90.9 (80.0-100.0) fL MCH 29.9 (25.0-34.0) pg MCHC 33.0 (32.0-36.0) g/dL RDW Std Deviation 49.7 H (36.4-46.3) fL RDW Coeff of Meghan 14.8 H (11.5-14.5) % Plt Count 141 (130-400) K/uL MPV 11.6 (9.4-12.3) fL Immature Gran % (Auto) 0.2 % Neut % (Auto) 81.0 % Lymph % (Auto) 8.9 % [place] % (Auto) 9.1 % Eos % (Auto) 0.4 % Baso % (Auto) 0.4 % Neut # (Auto) 3.75 (1.4-6.5) K/uL Lymph # (Auto) 0.41 L (1.2-3.4) K/uL [place] # (Auto) 0.42 (0.24-0.82) K/uL Eos # (Auto) 0.02 (0-0.50) K/uL Baso # (Auto) 0.02 (0-0.2) K/uL Immature Gran # (Auto) 0.01 (0.00-0.02) K/uL PT (9.0-12.0) Seconds INR (0.9-1.1) APTT (21.0-31.0) Seconds PTT Ratio Sodium (136-145) mmol/L Potassium (3.5-5.1) mmol/L Chloride (98-107) mmol/L Carbon Dioxide (21-32) mmol/L Anion Gap (3-11) BUN (6-23) mg/dl Creatinine (0.6-1.2) mg/dl Est Cr Clr Drug Dosing ml/min Est GFR ( Amer) ml/min Est GFR (Non-Af Amer) ml/min BUN/Creatinine Ratio (10-20) Glucose (70-99(Fasting)) mg/dl Calcium (8.5-10.1) mg/dl Magnesium (1.7-2.4) mg/dl Total Bilirubin (0.2-1.0) mg/dl AST (13-39) U/L ALT (7-52) U/L Alkaline Phosphatase (34-104) U/L Troponin I High Sens (0-14) pg/ml Total Protein (6.0-8.3) gm/dl Albumin (3.4-5.0) gm/dl Globulin (2.5-4.0) gm/dl Albumin/Globulin Ratio (0.9-2) TSH 1.731 (0.300-4.500) uIu/ml Urine Color Yellow Urine Appearance Clear (Clear) Urine pH 6.5 (4.5-7.5) Ur Specific Donnelly 1.018 (1.000-1.030) Urine Protein Negative (Negative) Urine Glucose (UA) Negative (Negative) Urine Ketones Trace H (Negative) Urine Blood Negative (Negative) Urine Nitrite Negative (Negative) Urine Bilirubin Negative (Negative) Urine Urobilinogen Negative (Negative) Ur Leukocyte Esterase Negative (Negative) SARS-CoV-2, RNA, NAAT (NEGATIVE) Administered Medications Discontinued Medications Sodium Chloride (Nss) 500 mls @ 999 mls/hr IV .Q31M MARIA Stop: 03/10/22 17:45 Last Infusion: 03/10/22 18:49 Dose: 0 mls/hr Documented By: Admin: 03/10/22 17:44 Dose: 999 mls/hr Documented By: ALBERT Imaging Data Radiologist's Impression: Cervical Spine CT 03/10/22 17:02 CT cervical spine wo con CT DOSE: 1466.44 mGy.cm CLINICAL HISTORY: 71 years-old Female with fall. Acute neck pain status post fall COMPARISON: Head CT of same day, CTA neck 04/05/2021 TECHNIQUE: Multiple axial CT images of the cervical spine were obtained without contrast. A dose lowering technique was utilized adhering to the principles of ALARA. FINDINGS: Multilevel degenerative changes include moderate disc space narrowing C5-C6 and C6-C7 with moderate multilevel facet arthrosis. Minimal superior end plate compression at T2 is mildly progressed from the prior study, likely chronic. No retropulsion. Partially imaged mild superior endplate compression at T3. Heterogeneous thyroid with numerous subcentimeter nodules and calcifications. The visualized lung apices appear clear. IMPRESSION: 1. No acute cervical spine fracture or subluxation identified. 2. Subtle superior endplate compression at T2 and T3 without retropulsion, technically age-indeterminate. No acute fracture line identified. ACT 112: Negative or not required by law. The above report was generated using voice recognition software. It may contain grammatical, syntax or spelling errors. Electronically signed by: Luis Medina M.D. 03/10/2022 7:[address] 03/10/22 17:02 CT head/brain wo con CLINICAL HISTORY: 71 years-old Female with fall. Acute head trauma status post fall. History of intracranial glioma neoplasm TECHNIQUE: Multiple axial CT images of the head were obtained without contrast. A dose lowering technique was utilized adhering to the principles of ALARA. COMPARISON: Brain MRI 01/01/2022, head CT 12/31/2021 FINDINGS: No acute intracranial hemorrhage, midline shift, hydrocephalus, territorial ischemia or abnormal extra-axial collection. Lobular partially calcified left parietal/periventricular mass measuring up to approximately 4 cm with adjacent vasogenic edema appears similar to prior. Unchanged mild mass effect upon the atria left lateral ventricle. Involutional changes with chronic microvascular ischemic disease. The calvarium is intact. Prior bilateral lens repair. The paranasal sinuses, mastoid air cells, and middle ear cavities are clear. IMPRESSION: 1. No acute intracranial abnormality or calvarial fracture. 2. Unchanged size and appearance of the partially calcified intra-axial mass within the periventricular left parietal lobe, better characterized on the 01/01/2022 brain MRI. 3. No midline shift. ACT 112: Negative or not required by law. The above report was generated using voice recognition software. It may contain grammatical, syntax or spelling errors. Electronically signed by: Luis Medina M.D. 03/10/2022 7:24 PM Pelvis X-Ray 03/10/22 17:02 XR pelvis 1-2V routine HISTORY: 71 years-old Female fall acute pelvic pain status post fall COMPARISON: None TECHNIQUE: AP view of the pelvis FINDINGS: Moderate osteoarthritis of the hips. No acute fracture, dislocation or avascular necrosis. A catheter projects over the midline pelvis. Arterial calcifications. Pelvic basin calcifications suggestive of phleboliths. IMPRESSION: No acute fracture or dislocation. ACT 112: Negative or not required by law. The above report was generated using voice recognition software. It may contain grammatical, syntax or spelling errors. Electronically signed by: Luis Medina M.D. 03/10/2022 6:08 PM Chest X-Ray 03/10/22 17:03 XR chest 1V portable HISTORY: 71 years-old Female weakness acute weakness COMPARISON: Chest radiograph 12/31/2021 TECHNIQUE: AP view of the chest FINDINGS: Cardiac silhouette is enlarged. No pneumothorax, pleural effusion, airspace consolidation or overt pulmonary edema. Bones of the chest appear grossly intact. IMPRESSION: No acute process. ACT 112: Negative or not required by law. The above report was generated using voice recognition software. It may contain grammatical, syntax or spelling errors. Electronically signed by: Luis Medina M.D. 03/10/2022 6:05 PM Discharge Plan Visit Data Chief Complaint: Fall ED Provider: Jace Zavala Discharge Problem: Right sided weakness, Glioblastoma multiforme of brain, Falls frequently, Hypomagnesemia Patient Disposition: Being Evaluated by Hospitalist Forms Stand Alone Forms: [facility] Prescriptions Prescriptions: No Action ondansetron HCl 8 mg tablet 8 mg PO Q8H PRN (Reason: Nausea) fluoxetine [Prozac] 10 mg capsule 10 mg PO QAM atorvastatin 40 mg tablet 40 mg PO HS metformin 1,000 mg tablet 1,000 mg PO BID irbesartan 75 mg tablet 75 mg PO QAM temozolomide 100 mg capsule 200 mg PO UD nystatin 100,000 unit/gram cream 1 applic TOPICAL TID Rx Instructions: apply to abdominal folds 2-3 times a day until rash resides docusate sodium 100 mg capsule 100 mg PO BID PRN (Reason: Constipation) temozolomide 140 mg capsule 140 mg PO UD insulin glargine [Lantus Solostar U-100 Insulin] 100 unit/mL (3 mL) insulin pen 20 unit SUBCUT HS levetiracetam [Keppra] 500 mg tablet 500 mg PO BID Qty: 60 0RF Referrals Referrals: Annette Evans [Primary Care Provider] -
[2022-03-10] MEDS ORDERED: SODIUM CHLORIDE 0.9% 500 ML IV SCH (17:15)
[2022-03-10 17:44] LABS: Appearance Urine Clear (Clear); Bilirubin Urine Negative (Negative); Blood Urine Negative (Negative); Color Urine Yellow; Glucose Urine UA Negative (Negative); Ketones Urine Trace (Negative); Leukocyte Esterase Urine Negative (Negative); Nitrite Urine Negative (Negative); Protein Urine Negative (Negative); Specific Gravity Urine 1.018 (1.000-1.030); Urobilinogen Urine Negative (Negative); pH Urine 6.5 (4.5-7.5)
[2022-03-10 17:46] LABS: Partial Thromboplastin Ratio 0.9; Partial Thromboplastin Time 24.4 Seconds (21.0-31.0); Prothrombin Time 10.7 Seconds (9.0-12.0)
[2022-03-10 17:54] LABS: Basophils # (auto) 0.02 K/uL (0-0.2); Basophils % (auto) 0.4 %; Eosinophils # (auto) 0.02 K/uL (0-0.50); Eosinophils % (auto) 0.4 %; Hematocrit (blood only) 43.7 % (34.1-44.9); Hemoglobin 14.4 g/dl (12.0-16.0); Immature Granulocytes # (auto) 0.01 K/uL (0.00-0.02); Immature Granulocytes % (auto) 0.2 %; Lymphocytes # (auto) 0.41 K/uL (1.2-3.4); Lymphocytes % (auto) 8.9 %; Mean Corpuscular Hemoglobin 29.9 pg (25.0-34.0); Mean Corpuscular Volume 90.9 fL (80.0-100.0); Mean Platelet Volume 11.6 fL (9.4-12.3); Monocytes # (auto) 0.42 K/uL (0.24-0.82); Monocytes % (auto) 9.1 %; Neutrophils # (auto) 3.75 K/uL (1.4-6.5); Platelet Count 141 K/uL (130-400); RDW Coefficient of Variation 14.8 % (11.5-14.5); RDW Standard Deviation 49.7 fL (36.4-46.3); Red Blood Count 4.81 M/uL (3.93-5.22); White Blood Count 4.63 K/ul (4.8-10.8)
--- NOTE | 2022-03-10 18:06 | XRay Report ---
XR chest 1V portable HISTORY: 71 years-old Female weakness acute weakness COMPARISON: Chest radiograph 12/31/2021 TECHNIQUE: AP view of the chest FINDINGS: Cardiac silhouette is enlarged. No pneumothorax, pleural effusion, airspace consolidation or overt pu lmonary edema. Bones of the chest appear grossly intact. IMPRESSION: No acute process. ACT 112: Negative or not required by law. The above report was generated using voice recognition software. It may contain grammatical, syntax o r spelling errors. Electronically signed by: Luis Medina M.D. 03/10/2022 6:05 PM
--- NOTE | 2022-03-10 18:09 | XRay Report ---
XR pelvis 1-2V routine HISTORY: 71 years-old Female fall acute pelvic pain status post fall COMPARISON: None TECHNIQUE: AP view of the pelvis FINDINGS: Moderate osteoarthritis of the hips. No acute fracture, dislocation or avascular necrosis. A catheter projects over the midline pelvis. Arterial calcifications. Pelvic basin calcifications suggestive of phleboliths. IMPRESSION: No acute fracture or dislocation. ACT 112: Negative or not required by law. The above report was generated using voice recognition software. It may contain grammatical, syntax o r spelling errors. Electronically signed by: Luis Medina M.D. 03/10/2022 6:08 PM
[2022-03-10 18:13] LABS: Albumin Globulin Ratio 1.6 (0.9-2); Albumin Level 4.4 gm/dl (3.4-5.0); BUN Creatinine Ratio 18.9 (10-20); Bilirubin,Total 0.8 mg/dl (0.2-1.0); Calcium 9.8 mg/dl (8.5-10.1); Creatinine Clr Calc Pharmacy 105.8 ml/min; Est GFR (African American) 111.5 ml/min; Est GFR (Non-African American) 96.2 ml/min; Globulin 2.8 gm/dl (2.5-4.0); Magnesium 1.5 mg/dl (1.7-2.4); Total Protein 7.2 gm/dl (6.0-8.3); Troponin I High Sensitivity 6.2 pg/ml (0-14)
--- NOTE | 2022-03-10 19:26 | CT Scan Report ---
CT head/brain wo con CLINICAL HISTORY: 71 years-old Female with fall. Acute head trauma status post fall. History of intr acranial glioma neoplasm TECHNIQUE: Multiple axial CT images of the head were obtained without contrast. A dose lowering tech nique was utilized adhering to the principles of ALARA. COMPARISON: Brain MRI 01/01/2022, head CT 12/31/2021 FINDINGS: No acute intracranial hemorrhage, midline shift, hydrocephalus, territorial ischemia or abnormal extr a-axial collection. Lobular partially calcified left parietal/periventricular mass measuring up to ap proximately 4 cm with adjacent vasogenic edema appears similar to prior. Unchanged mild mass effect u dmitry the atria left lateral ventricle. Involutional changes with chronic microvascular ischemic diseas e. The calvarium is intact. Prior bilateral lens repair. The paranasal sinuses, mastoid air cells, and m iddle ear cavities are clear. IMPRESSION: 1. No acute intracranial abnormality or calvarial fracture. 2. Unchanged size and appearance of the partially calcified intra-axial mass within the periventricul ar left parietal lobe, better characterized on the 01/01/2022 brain MRI. 3. No midline shift. ACT 112: Negative or not required by law. The above report was generated using voice recognition software. It may contain grammatical, syntax o r spelling errors. Electronically signed by: Luis Medina M.D. 03/10/2022 7:24 PM
--- NOTE | 2022-03-10 19:35 | CT Scan Report ---
CT cervical spine wo con CT DOSE: 1466.44 mGy.cm CLINICAL HISTORY: 71 years-old Female with fall. Acute neck pain status post fall COMPARISON: Head CT of same day, CTA neck 04/05/2021 TECHNIQUE: Multiple axial CT images of the cervical spine were obtained without contrast. A dose low ering technique was utilized adhering to the principles of ALARA. FINDINGS: Multilevel degenerative changes include moderate disc space narrowing C5-C6 and C6-C7 with moderate multilevel facet arthrosis. Minimal superior endplate compression at T2 is mildly progressed from the prior study, likely chronic. No retropulsion. Partially imaged mild superior endplate compr ession at T3. Heterogeneous thyroid with numerous subcentimeter nodules and calcifications. The visualized lung ap ices appear clear. IMPRESSION: 1. No acute cervical spine fracture or subluxation identified. 2. Subtle superior endplate compression at T2 and T3 without retropulsion, technically age-indetermin ate. No acute fracture line identified. ACT 112: Negative or not required by law. The above report was generated using voice recognition software. It may contain grammatical, syntax o r spelling errors. Electronically signed by: Luis Medina M.D. 03/10/2022 7:32 PM
[2022-03-10] MEDS ORDERED: GABAPENTIN 100 MG CAP PO ONE (19:58)
[2022-03-10] MEDS: MAGNESIUM SULFATE / D5W 1 GM/100 ML BAG IV SCH ×2 (20:09→21:19)
--- NOTE | 2022-03-10 21:48 | History & Physical Report ---
Date of Service March 10, 2022 Assessment & Plan (1) Falls frequently: Plan: - Imaging shows a subtle superior endplate compression at T2 and T3 without retropulsion, technically age-indeterminate. Otherwise imaging negative for fractures, dislocation, or otherwise acute process. - Patient without any complaints at this time. Feels she is weak, having trouble walking without assistance at home. No recent - Will have PT and OT evaluate patient. - Will add on vit D (2) Hypomagnesemia: Plan: - Mag slightly low at 1.5, repleted with 2 g of mag in ED. Will order 1 mor gm overnight as she has histo - Avoid hypomagnesemia to prevent seizures. (3) GBM (glioblastoma multiforme): Plan: - Continue Keppra 500 mg twice daily. - s/p radiation therapy, Temodar/bevacizumab - CT: no changes to mass. - Has baseline expressive aphasia, right-sided weakness/numbness. (4) Hyperlipidemia: Plan: - Continue atorvastatin. (5) Hypertension: Plan: - Continue irbesartan. (6) Type 2 diabetes mellitus: Plan: - Home regimen is glaring 20 units HS, metformin 1 g twice daily. - Will convert to Lantus 10 units BID and SSI with CF 40, CR 15. Plan - Admit to med/surg. - SCDs for VTE ppx. - Full Code. History of Present Illness Chief Complaint: weakness at home Primary Care Provider: Annette Evans Mariella Zuñiga is a 71-year-old female with past medical history significant for hyperlipidemia, hypertension, diabetes glioblastoma multiforme [facility] is coming in with weakness. She has a history of frequent falls recently hitting her head and has a slight headache. She almost fell today, fortunately has been nearby and is able to help her, however she had difficulty standing due to weakness. She is feeling too weak to go home. She has no current complaints, without any fever chills, hip pain, chest pain, palpitation, shortness of breath, abdominal pain, nausea, vomiting. No reports of any seizures. On presentation to ED and throughout time in ED, vital signs have been within normal limits and stable. Her labs largely unremarkable. Her mag is slightly low at 1.5. CT of C-spine shows subtle superior endplate compression at T2 and T3 without retropulsion, age-indeterminate. No other fractures or subluxation noted. Head CT shows unchanged size and appearance of the partially calcified intra-axial mass within the periventricular parietal lobe. No midline shift, no other acute intracranial abnormality or calvarial fracture. CXR and pelvic XR do not show fractures, dislocations, or other acute processes. Allergies Allergy/AdvReac Type Severity Reaction Status Date / Time No Known Allergies Allergy Unknown * Verified 03/10/22 21:56 Home Medications Medication Instructions Recorded Confirmed Type atorvastatin 40 mg tablet 40 mg PO HS 03/31/21 03/10/22 History irbesartan 75 mg tablet 75 mg PO QAM 03/31/21 03/10/22 History metformin 1,000 mg tablet 1,000 mg PO BID 03/31/21 03/10/22 History ondansetron HCl 8 mg tablet 8 mg PO Q8H PRN Nausea 05/10/21 03/10/22 History fluoxetine 10 mg capsule (Prozac) 10 mg PO QAM 05/31/21 03/10/22 History docusate sodium 100 mg capsule 100 mg PO BID PRN Constipation 12/31/21 03/10/22 History insulin glargine 100 unit/mL (3 20 unit subcut HS 12/31/21 03/10/22 History mL) subcutaneous pen (Lantus Solostar U-100 Insulin) temozolomide 100 mg capsule 200 mg PO UD 12/31/21 03/10/22 History temozolomide 140 mg capsule 140 mg PO UD 12/31/21 03/10/22 History levetiracetam 500 mg tablet 500 mg PO BID #60 tabs 01/01/22 03/10/22 Rx (Keppra) amoxicillin 500 mg capsule 2,000 mg PO ONCE PRN 1 hr prior to 03/10/22 03/10/22 History dental appt gabapentin 100 mg capsule 100 mg PO TID 03/10/22 03/10/22 History nystatin 100,000 unit/gram topical 1 applic topical TID PRN fungal 03/10/22 03/10/22 History powder (Nyamyc) infection Past Med/Surg History Medical History Alert and oriented will have difficulty finding the "right words" at times. little feeling in the right arm and right leg. uses walker. Chronic steroid use GBM (glioblastoma multiforme) Biopsy 04/13/21. no surgery. had radiation treatments, finished in June 2021. Glioblastoma multiforme of brain (04/13/21) Hyperlipidemia Hypertension Lichen simplex chronicus Obesity Type 2 diabetes mellitus IDDM Surgical History History of blepharoplasty bilateral History of cataract surgery Left eye History of colonoscopy History of dental surgery Status post bilateral knee replacements Family History Mother Hypertension Father , 84yo Dementia Hypertension Stroke Brother Stroke Cancer of kidney Sister Hypertension Daughter No problems noted. Other Family history non-contributory Social History Smoking Status: Smoker, status unknown Cigarettes Per Day: Unable to answer,cognitively impaired; Smoking End Date: Unable to answer,cognitively impaired; Second Hand Exposure: No; Preferred Language: Brazilian Communication Ability: Effective Visual Impairment: No Limitations Hearing Ability: Hard of Hearing Weir Fisher Required: No Beliefs That Will Affect Care: None marital status: Current Living Situation: Spouse and Other Current Living Situation Comment: Unable to answer,cognitively impaired current occupational status: retired current occupation: Teacher Other Information That Helps Us Care for You: No (Unable to answer,cognitively impaired) Feels Safe at Home: Yes caffeine: Yes (1 cup/day) during the past year weight has: decreased > 10 lbs Assistive Devices: Walker, Wheelchair and Other Assistive Devices Comment: transport chair Review of Systems Review of Systems: Constitutional: No fever/chills, weakness, fatigue, myalgias, anorexia, night sweats Eyes: No diplopia, no worsening or blurred vision ENT: normal hearing, no trouble swallowing Respiratory: No cough, sputum, dyspnea at rest or on exertion Cardiovascular: No chest pain, tightness or palpitations Abdomen: No pain, nausea, vomiting, diarrhea or constipation : Denies dysuria, hematuria, increased urgency/frequency, urinary retention Musculoskeletal: No joint pain, calf pain, swelling Neurologic: No weakness, numbness/tingling, or balance problems Psychiatric: No anxiety or depression Skin: No rash or itch Physical Exam Physical Exam: General: awake, alert, no apparent distress Head: Normocephalic, atraumatic ENT: PERRL, EOMI, no pharyngeal exudate, mucous membranes moist Chest: Clear to auscultation, on room air, no adventitious breath sounds Cardiac: Regular rate and rhythm, no murmur, no JVD, normal peripheral pulses, good capillary refill Abdominal: NABS x 4 quadrants, soft, nontender to palpation, no rebound, guarding or tenderness Extremities: Normal inspection, no peripheral edema or erythema, calfs nontender to palpation Psych: Normal mood and affect Neuro: AAO x 3, strength intact bilaterally and rated 5/5, no motor deficits, speech is clear, no peripheral sensory deficits Skin: no rash or erythema Results & Data Results & Data ([facility]) Vital Signs (Past 12 Hours) Vital Signs Temp Pulse Resp BP Pulse Ox O2 Del Method 03/10/22 21:30 70 18 138/88 96 03/10/22 21:00 70 18 146/80 H 96 03/10/22 20:30 67 18 152/94 H 98 03/10/22 20:01 67 18 122/80 96 03/10/22 19:53 66 20 156/105 H 96 03/10/22 19:00 66 18 140/77 96 03/10/22 18:20 76 15 03/10/22 18:10 69 17 91 03/10/22 18:00 72 21 100 03/10/22 18:00 122/66 03/10/22 17:50 75 21 97 03/10/22 17:40 69 18 99 03/10/22 17:30 72 17 97 03/10/22 17:30 112/71 03/10/22 17:20 72 18 100 03/10/22 17:13 78 15 100 03/10/22 17:03 88 22 98 Room Air 03/10/22 16:25 36.4 C 76 20 148/76 H 93 Room Air Laboratory Results Abnormal lab results 03/10/22 03/10/22 03/10/22 Range/Units Unknown Unknown Unknown WBC 4.63 L (4.8-10.8) K/ul RDW Std Deviation 49.7 H (36.4-46.3) fL RDW Coeff of Meghan 14.8 H (11.5-14.5) % Lymph # (Auto) 0.41 L (1.2-3.4) K/uL Creatinine 0.53 L (0.6-1.2) mg/dl Glucose 113 H (70-99(Fasting)) mg/dl Magnesium 1.5 L (1.7-2.4) mg/dl Urine Ketones Trace H (Negative) Diagnostic Findings Cervical Spine CT 03/10/22 17:02 CT cervical spine wo con CT DOSE: 1466.44 mGy.cm CLINICAL HISTORY: 71 years-old Female with fall. Acute neck pain status post fall COMPARISON: Head CT of same day, CTA neck 04/05/2021 TECHNIQUE: Multiple axial CT images of the cervical spine were obtained without contrast. A dose lowering technique was utilized adhering to the principles of ALARA. FINDINGS: Multilevel degenerative changes include moderate disc space narrowing C5-C6 and C6-C7 with moderate multilevel facet arthrosis. Minimal superior endplate compression at T2 is mildly progressed from the prior study, likely chronic. No retropulsion. Partially imaged mild superior endplate compression at T3. Heterogeneous thyroid with numerous subcentimeter nodules and calcifications. The visualized lung apices appear clear. IMPRESSION: 1. No acute cervical spine fracture or subluxation identified. 2. Subtle superior endplate compression at T2 and T3 without retropulsion, technically age-indeterminate. No acute fracture line identified. ACT 112: Negative or not required by law. The above report was generated using voice recognition software. It may contain grammatical, syntax or spelling errors. Electronically signed by: Luis Medina M.D. 03/10/2022 7:[address] 03/10/22 17:02 CT head/brain wo con CLINICAL HISTORY: 71 years-old Female with fall. Acute head trauma status post fall. History of intracranial glioma neoplasm TECHNIQUE: Multiple axial CT images of the head were obtained without contrast. A dose lowering technique was utilized adhering to the principles of ALARA. COMPARISON: Brain MRI 01/01/2022, head CT 12/31/2021 FINDINGS: No acute intracranial hemorrhage, midline shift, hydrocephalus, territorial ischemia or abnormal extra-axial collection. Lobular partially calcified left parietal/periventricular mass measuring up to approximately 4 cm with adjacent vasogenic edema appears similar to prior. Unchanged mild mass effect upon the atria left lateral ventricle. Involutional changes with chronic microvascular ischemic disease. The calvarium is intact. Prior bilateral lens repair. The paranasal sinuses, mastoid air cells, and middle ear cavities are clear. IMPRESSION: 1. No acute intracranial abnormality or calvarial fracture. 2. Unchanged size and appearance of the partially calcified intra-axial mass within the periventricular left parietal lobe, better characterized on the 01/01/2022 brain MRI. 3. No midline shift. ACT 112: Negative or not required by law. The above report was generated using voice recognition software. It may contain grammatical, syntax or spelling errors. Electronically signed by: Luis Medina M.D. 03/10/2022 7:24 PM Pelvis X-Ray 03/10/22 17:02 XR pelvis 1-2V routine HISTORY: 71 years-old Female fall acute pelvic pain status post fall COMPARISON: None TECHNIQUE: AP view of the pelvis FINDINGS: Moderate osteoarthritis of the hips. No acute fracture, dislocation or avascular necrosis. A catheter projects over the midline pelvis. Arterial calcifications. Pelvic basin calcifications suggestive of phleboliths. IMPRESSION: No acute fracture or dislocation. ACT 112: Negative or not required by law. The above report was generated using voice recognition software. It may contain grammatical, syntax or spelling errors. Electronically signed by: Luis Medina M.D. 03/10/2022 6:08 PM Chest X-Ray 03/10/22 17:03 XR chest 1V portable HISTORY: 71 years-old Female weakness acute weakness COMPARISON: Chest radiograph 12/31/2021 TECHNIQUE: AP view of the chest FINDINGS: Cardiac silhouette is enlarged. No pneumothorax, pleural effusion, airspace consolidation or overt pulmonary edema. Bones of the chest appear grossly intact. IMPRESSION: No acute process. ACT 112: Negative or not required by law. The above report was generated using voice recognition software. It may contain grammatical, syntax or spelling errors. Electronically signed by: Luis Medina M.D. 03/10/2022 6:05 PM Code Status & VTE Plan Code Status Full Code. Supervising Physician Co-Signing Physician Notes Attending addendum: I have physically seen this patient, have supervised the PEREZ's activities, and agree with the H&P unless as otherwise noted. Assessment and Plan: Frequent falls/chronic right-sided weakness/glioblastoma multiforme- CT head with no change in brain mass,, No change in baseline weakness of right side and complain numbness No change in expressive aphasia Continue Keppra 500 mg p.o. twice daily Consult PT/OT Hyperlipidemia- Continue atorvastatin Hypertension- Continue irbesartan Diabetes mellitus- In hospital change glargine 20 units at bedtime for 10 units subcu twice daily Hold metformin Placed on Accu-Cheks sliding scale Remaining orders and notations as noted PG Care Time/CCT Total # of Minutes Spent Total Time Spent with Patient: Total time spent is greater than 50% in coordination of care (as documented) at patient's floor/unit and/or counseling patient: Coding Level of Care Code INT OBSERVATION CARE 71M LVL 3 Diagnoses Falls frequently R29.6 Hypomagnesemia E83.42 GBM (glioblastoma multiforme) C71.9 Hyperlipidemia E78.5 Hypertension I10 Type 2 diabetes mellitus E11.9
[2022-03-10] MEDS ORDERED: GLUCOSE 40% GEL 15 GM TUBE PO PRN (23:12)
[2022-03-10] MEDS ORDERED: DEXTROSE 50% 50 ML SYRINGE IV PRN (23:12)
[2022-03-10] MEDS ORDERED: MAGNESIUM SULFATE / D5W 1 GM/100 ML BAG IV ONE (23:12)
[2022-03-10] MEDS ORDERED: CARBOHYDRATES FOR HYPOGLYCEMIA PO PRN (23:12)
[2022-03-10] MEDS ORDERED: GLUCOSE 10 TAB/TUBE PO PRN (23:12)
[2022-03-10] MEDS ORDERED: ONDANSETRON INJ 2 MG/ML 2 ML VIAL IV PRN (23:12)
[2022-03-10] MEDS ORDERED: NYSTATIN POWDER 15GM BTL EXT PRN (23:12)
[2022-03-10] MEDS ORDERED: ALUMINUM/MAGNESIUM SUSP 30 ML UDC PO PRN (23:12)
[2022-03-10] MEDS ORDERED: GLUCAGON FOR INJ 1 MG VIAL SQ PRN (23:12)
[2022-03-10] MEDS ORDERED: DOCUSATE SODIUM 100 MG CAP PO PRN (23:12)
[2022-03-10] MEDS ORDERED: POLYETHYLENE (MIRALAX) 17 GM PACK PO PRN (23:12)
[2022-03-10] MEDS: LACTATED RINGER'S 1,000 ML IV SCH (23:48)
[2022-03-11] MEDS ORDERED: INFLUENZA VACCINE HIGH DOSE PF 65+ 0.7 ML SYR IM ONE (07:56)
[2022-03-11] MEDS ORDERED: PNEUMOCOCCAL POLYSACCHARIDES 25 MCG/0.5 ML VIAL/SYR IM ONE (07:56)
[2022-03-11] MEDS: IRBESARTAN 75 MG TAB PO SCH (08:51)
[2022-03-11] MEDS: MAGNESIUM CHLORIDE W/CALCIUM 64MG DELAYED REL TAB PO SCH (08:51)
[2022-03-11] MEDS: levETIRAcetam 500 MG TAB PO SCH ×2 (08:51→21:39)
[2022-03-11] MEDS: GABAPENTIN 100 MG CAP PO SCH ×3 (08:51→21:39)
[2022-03-11] MEDS: LACTATED RINGER'S 1,000 ML IV SCH ×3 (08:51→21:39)
[2022-03-11] MEDS: CHOLECALCIFEROL 5,000 UNITS 125 MCG TAB PO SCH (08:51)
[2022-03-11] MEDS: FLUoxetine HCL 10 MG CAP PO SCH (08:51)
[2022-03-11] MEDS: INSULIN ASPART PER UNIT SC SCH ×4 (08:55→21:40)
[2022-03-11] MEDS: LANTUS PER UNIT CHARGE SQ SCH ×2 (09:21→21:40)
[2022-03-11 10:12] LABS: BUN Creatinine Ratio 18.2 (10-20); Calcium 9.1 mg/dl (8.5-10.1); Creatinine Clr Calc Pharmacy 140.2 ml/min; Est GFR (African American) 118.5 ml/min; Est GFR (Non-African American) 102.3 ml/min; Magnesium 1.8 mg/dl (1.7-2.4); Potassium 3.7 mmol/L (3.5-5.1)
[2022-03-11 10:17] LABS: Basophils # (auto) 0.03 K/uL (0-0.2); Basophils % (auto) 0.8 %; Echinocytes 1+; Eosinophils # (auto) 0.05 K/uL (0-0.50); Eosinophils % (auto) 1.3 %; Hematocrit (blood only) 38.3 % (34.1-44.9); Hemoglobin 12.5 g/dl (12.0-16.0); Immature Granulocytes # (auto) 0.01 K/uL (0.00-0.02); Immature Granulocytes % (auto) 0.3 %; Lymphocytes % (auto) 12.8 %; Mean Corpuscular Hemoglobin 29.3 pg (25.0-34.0); Mean Corpuscular Hgb Conc 32.6 g/dL (32.0-36.0); Mean Corpuscular Volume 89.9 fL (80.0-100.0); Mean Platelet Volume 10.9 fL (9.4-12.3); Monocytes # (auto) 0.38 K/uL (0.24-0.82); Monocytes % (auto) 9.7 %; Neutrophils # (auto) 2.93 K/uL (1.4-6.5); Neutrophils % (auto) 75.1 %; Platelet Count 122 K/uL (130-400); Platelet Estimate Normal (Normal); RDW Coefficient of Variation 14.8 % (11.5-14.5); RDW Standard Deviation 48.6 fL (36.4-46.3); Red Blood Count 4.26 M/uL (3.93-5.22)
--- NOTE | 2022-03-11 14:24 | XRay Report ---
XR shoulder RT min 2V routine, XR elbow RT min 3V routine, XR humerus RT 2V CLINICAL HISTORY: right humerus/elbow/shoulder pain s/p fall TECHNIQUE: 3 views of the right shoulder , 2 views of the right humerus, and 3 views of the right elb ow were obtained. Comparison: None available at the time of this dictation. FINDINGS: There is no evidence of an acute fracture. Degenerative changes are seen in the glenohumeral joint an d elbow. The overlying soft tissues are unremarkable. The visualized portions of the lungs are clear. IMPRESSION: Degenerative changes without evidence of acute abnormality. ACT 112: Negative or not required by law. Electronically signed by: Naeem Sanchez M.D. 03/11/2022 2:23 PM
--- NOTE | 2022-03-11 15:26 | Hospitalist Progress Note ---
Date of Service March 11, 2022 Assessment & Plan (1) Falls frequently: Plan: - Imaging shows a subtle superior endplate compression at T2 and T3 without retropulsion, technically age-indeterminate. Otherwise imaging negative for fractures, dislocation, or otherwise acute process. - Patient without any complaints at this time. Feels she is weak, having trouble walking without assistance at home. No recent - PT/OT assessments pending - Given progressive nature and prior MRI brain done at this institution will get MRI brain done here to assess for alternative acute intracranial causes (2) Hypomagnesemia: Plan: - Mag slightly low at 1.5, repleted with 2 g of mag in ED. 1g extra given overnight. - Mg level 1.8 this morning Start on oral magnesium supplementation (3) GBM (glioblastoma multiforme): Plan: - Continue Keppra 500 mg twice daily. - s/p radiation therapy, Temodar/bevacizumab - CT: no changes to mass. - Has baseline expressive aphasia, right-sided weakness/numbness. (4) Hyperlipidemia: Plan: - Continue atorvastatin. (5) Hypertension: Plan: - Continue irbesartan. (6) Type 2 diabetes mellitus: Plan: - Home regimen is glaring 20 units HS, metformin 1 g twice daily. - Will convert to Lantus 10 units BID and SSI with CF 40, CR 15. HbA1C 8.3 in December (7) Thoracic compression fracture: Plan: Unclear if these are acute on cervical spine imaging. Does not appear to be having pain here although difficulty communicating with patient Plan - Admit to med/surg. - SCDs for VTE ppx. - Full Code. Admission and Anticipated Discharge Date Admission Date: March 10, 2022 Subjective Difficulty communicating with patient due to her expressive aphasia. Acute on chronic decline with her balance and pain. Mainly grimaces in pain when lifting up her right arm and dressing. feels her pain may be around her elbow. Review of Systems Review of Systems: All systems reviewed & are unremarkable except as noted in Subjective Physical Exam Constitutional: WD/WN, vitals as above Eyes: + anicteric sclerae; normal pupil size ENMT: external ear and nose normal, oropharynx normal Neck: trachea midline, no thyromegaly Respiratory: normal respiratory effort, lungs clear to auscultation Cardiovascular: RRR, no murmur, no edema Gastrointestinal (Abdomen): normal bowel sounds, soft, nontender, no hepatosplenomegaly Musculoskeletal: Grimacing pain on lifting right arm. No grimacing on movement of wrist or fingers. Neurologic: moves all extremities and awake Speech / Cognition: + expressive aphasia Motor/Sensory: no tremor Psychiatric: Orientation: alert; + not oriented x 3 (unable to adequately assess due to aphasia) Genitourinary: no CVA tenderness Results & Data Results & Data ([facility]) Vital Signs (Past 12 Hours) Vital Signs Temp Pulse Resp BP Pulse Ox O2 Del Method 03/11/22 15:20 37.1 C 85 16 101/65 92 Room Air 03/11/22 07:19 36.6 C 80 18 144/81 H 98 Room Air PG Care Time/CCT Total # of Minutes Spent Total Time Spent with Patient: Total time spent is greater than 50% in coordination of care (as documented) at patient's floor/unit and/or counseling patient: Coding Level of Care Code 54087 Subseq Hosp Care Lvl 2 Diagnoses Falls frequently R29.6 Hypomagnesemia E83.42 GBM (glioblastoma multiforme) C71.9 Hyperlipidemia E78.5 Hypertension I10 Type 2 diabetes mellitus E11.9 Thoracic compression fracture S22.000A
[2022-03-11] MEDS ORDERED: GADOBUTROL 65ML VIAL IV ONE (17:03)
--- NOTE | 2022-03-11 18:05 | Magnetic Resonance Report ---
MR brain wo/w con CLINICAL HISTORY: progressive weakness, Glioblastoma TECHNIQUE: Multiplanar and multisequence MR images of the brain were obtained prior to and following administration of gadolinium contrast. Comparison: Comparison is made to MRI brain 12/22/2021 FINDINGS: An ill-defined lobular left parietal periventricular mass with T1 hyperintensity is essentially uncha nged in size from prior exam. This lesion has however decreased in size from outside hospital exam of 04/06/2021. Compared to the prior exam, there is more conspicuous peripheral enhancement, concerning for residual viable tumor. A small amount of susceptibility artifact is again seen surrounding it. T here is surrounding vasogenic edema which is increased from prior exam. Flow voids of the major intracranial arterial vessels are identified. The imaged portions of the para nasal sinuses, mastoid air cells, and orbits are unremarkable. IMPRESSION: Compared to the prior exam, the lobular left parietal periventricular mass is unchanged in size but d emonstrates increased enhancement and vasogenic edema. Findings may represent post radiation changes or residual viable tumor. Correlation with treatment schedule is recommended. ACT 112: Negative or not required by law. Electronically signed by: Naeem Sanchez M.D. 03/11/2022 6:03 PM
[2022-03-11] MEDS: ATORVASTATIN 40 MG TAB PO SCH (21:39)
[2022-03-12] MEDS: MICONAZOLE NITRATE POWDER 43 GM EXT PRN (02:33)
[2022-03-12] MEDS: LACTATED RINGER'S 1,000 ML IV SCH (08:25)
[2022-03-12] MEDS: GABAPENTIN 100 MG CAP PO SCH ×3 (08:26→19:59)
[2022-03-12] MEDS: levETIRAcetam 500 MG TAB PO SCH ×2 (08:27→19:59)
[2022-03-12] MEDS: IRBESARTAN 75 MG TAB PO SCH (08:27)
[2022-03-12] MEDS: FLUoxetine HCL 10 MG CAP PO SCH (08:27)
[2022-03-12] MEDS: MAGNESIUM CHLORIDE W/CALCIUM 64MG DELAYED REL TAB PO SCH (08:27)
[2022-03-12] MEDS: CHOLECALCIFEROL 5,000 UNITS 125 MCG TAB PO SCH (08:27)
[2022-03-12] MEDS: INSULIN ASPART PER UNIT SC SCH ×4 (09:47→21:31)
[2022-03-12] MEDS: LANTUS PER UNIT CHARGE SQ SCH ×2 (09:47→21:31)
[2022-03-12 11:22] LABS: Calcium 8.9 mg/dl (8.5-10.1); Creatinine Clr Calc Pharmacy 123.4 ml/min; Est GFR (African American) 113.7 ml/min; Est GFR (Non-African American) 98.1 ml/min; Magnesium 1.6 mg/dl (1.7-2.4); Potassium 3.8 mmol/L (3.5-5.1)
--- NOTE | 2022-03-12 14:04 | Hospitalist Progress Note ---
Date of Service March 12, 2022 Assessment & Plan (1) Falls frequently: Plan: - Imaging shows a subtle superior endplate compression at T2 and T3 without retropulsion, technically age-indeterminate. Otherwise imaging negative for fractures, dislocation, or otherwise acute process. - Patient without any complaints at this time. Feels she is weak, having trouble walking without assistance at home. - PT/OT. - No significant new intracranial pathology on brain MRI. Will forward images to her oncologist at [facility] given edema whether she would benefit from steroids. - Planning on placement due to ongoing concern for safety at home and no significant reversible etiology at this time. (2) Hypomagnesemia: Plan: - Mag slightly low at 1.5, repleted with 2 g of mag in ED. 1g extra given overnight. - Mg level 1.6 this morning Continue on oral magnesium supplementation (3) GBM (glioblastoma multiforme): Plan: - Continue Keppra 500 mg twice daily. - s/p radiation therapy, Temodar/bevacizumab - CT: no changes to mass. - Has baseline expressive aphasia, right-sided weakness/numbness. (4) Hyperlipidemia: Plan: - Continue atorvastatin. (5) Hypertension: Plan: - Continue irbesartan. (6) Type 2 diabetes mellitus: Plan: - Home regimen is glaring 20 units HS, metformin 1 g twice daily. - Will convert to Lantus 10 units BID and SSI with CF 40, CR 15. HbA1C 8.3 in December (7) Thoracic compression fracture: Plan: Unclear if these are acute on cervical spine imaging. Does not appear to be having pain here although difficulty communicating with patient Plan - Admit to med/surg. - SCDs for VTE ppx. - Full Code. Admission and Anticipated Discharge Date Admission Date: March 11, 2022 Subjective Difficulty communicating with patient due to expressive dysphagia. On discussion with the patient and her there is concern for her safety at home therefore wanting to apply for acute rehabilitation at this time. Review of Systems Review of Systems: All systems reviewed & are unremarkable except as noted in Subjective Physical Exam Constitutional: WD/WN, vitals as above Respiratory: normal respiratory effort, lungs clear to auscultation Cardiovascular: RRR, no murmur, no edema Gastrointestinal (Abdomen): normal bowel sounds, soft, nontender, no hepatosplenomegaly Neurologic: moves all extremities and awake Speech / Cognition: + expressive aphasia Motor/Sensory: no tremor Psychiatric: Orientation: alert; + not oriented x 3 (unable to adequately assess due to aphasia) Results & Data Results & Data ([facility]) Vital Signs (Past 12 Hours) Vital Signs Temp Pulse Resp BP Pulse Ox O2 Del Method 03/12/22 07:05 36.4 C L 72 16 131/80 96 Room Air PG Care Time/CCT Total # of Minutes Spent Total Time Spent with Patient: Total time spent is greater than 50% in coordination of care (as documented) at patient's floor/unit and/or counseling patient: Coding Level of Care Code 72190 Subseq Hosp Care Lvl 1 Diagnoses Falls frequently R29.6 Hypomagnesemia E83.42 GBM (glioblastoma multiforme) C71.9 Hyperlipidemia E78.5 Hypertension I10 Type 2 diabetes mellitus E11.9 Thoracic compression fracture S22.000A
[2022-03-12] MEDS: ATORVASTATIN 40 MG TAB PO SCH (19:59)
--- NOTE | 2022-03-12 22:13 | Electrocardiogram Report ---
Test Reason : Blood Pressure : / mmHG Vent. Rate : 072 BPM Atrial Rate : 072 BPM P-R Int : 140 ms QRS Dur : 080 ms QT Int : 404 ms P-R-T Axes : 003 -24 015 degrees QTc Int : 442 ms Normal sinus rhythm Inferior infarct , age undetermined Abnormal ECG When compared with ECG of 31-DEC-2021 15:00, No significant change was found Confirmed by Alfonso Jacobson ([id number]) on 03/12/2022 10:13:39 PM Referred By: REFERRED SELF Confirmed By:Alfonso Jacobson
[2022-03-13] MEDS: IRBESARTAN 75 MG TAB PO SCH (09:24)
[2022-03-13] MEDS: FLUoxetine HCL 10 MG CAP PO SCH (09:25)
[2022-03-13] MEDS: levETIRAcetam 500 MG TAB PO SCH ×2 (09:25→20:11)
[2022-03-13] MEDS: GABAPENTIN 100 MG CAP PO SCH ×3 (09:25→20:11)
[2022-03-13] MEDS: CHOLECALCIFEROL 5,000 UNITS 125 MCG TAB PO SCH (09:25)
[2022-03-13] MEDS: INSULIN ASPART PER UNIT SC SCH ×4 (09:29→21:24)
[2022-03-13] MEDS: LANTUS PER UNIT CHARGE SQ SCH ×2 (09:32→21:24)
[2022-03-13] MEDS: ENOXAPARIN INJ 40 MG/0.4 ML SYR SQ SCH (10:21)
[2022-03-13] MEDS: MAGNESIUM CHLORIDE W/CALCIUM 64MG DELAYED REL TAB PO SCH ×2 (10:21→20:11)
[2022-03-13] MEDS: MAGNESIUM SULFATE / D5W 1 GM/100 ML BAG IV SCH ×3 (12:02→16:27)
[2022-03-13] MEDS: ATORVASTATIN 40 MG TAB PO SCH (20:11)
[2022-03-13] MEDS: ACETAMINOPHEN 325 MG TAB PO PRN (20:18)
[2022-03-14] MEDS: CHOLECALCIFEROL 5,000 UNITS 125 MCG TAB PO SCH (08:22)
[2022-03-14] MEDS: MAGNESIUM CHLORIDE W/CALCIUM 64MG DELAYED REL TAB PO SCH ×2 (08:22→20:35)
[2022-03-14] MEDS: FLUoxetine HCL 10 MG CAP PO SCH (08:22)
[2022-03-14] MEDS: ENOXAPARIN INJ 40 MG/0.4 ML SYR SQ SCH (08:22)
[2022-03-14] MEDS: GABAPENTIN 100 MG CAP PO SCH ×3 (08:23→20:34)
[2022-03-14] MEDS: levETIRAcetam 500 MG TAB PO SCH ×2 (08:23→20:35)
[2022-03-14] MEDS: IRBESARTAN 75 MG TAB PO SCH (08:23)
--- NOTE | 2022-03-14 09:24 | Hospitalist Progress Note ---
Date of Service March 13, 2022 Assessment & Plan (1) Falls frequently: Plan: - Imaging shows a subtle superior endplate compression at T2 and T3 without retropulsion, technically age-indeterminate. Otherwise imaging negative for fractures, dislocation, or otherwise acute process. - Patient without any complaints at this time. Feels she is weak, having trouble walking without assistance at home. - PT/OT. - No significant new intracranial pathology on brain MRI. Will forward images to her oncologist at [place] given edema whether she would benefit from steroids. - Planning on placement due to ongoing concern for safety at home and no significant reversible etiology at this time. (2) Hypomagnesemia: Plan: - Mag slightly low at 1.5, repleted with 2 g of mag in ED. 1g extra given overnight. - Mg level 1.6 this morning. Magnesium sulfate 3 g IV will be given today. Continue on oral magnesium supplementation (3) GBM (glioblastoma multiforme): Plan: - Continue Keppra 500 mg twice daily. - s/p radiation therapy, Temodar/bevacizumab - CT: no changes to mass. - Has baseline expressive aphasia, right-sided weakness/numbness. (4) Hyperlipidemia: Plan: - Continue atorvastatin. (5) Hypertension: Plan: - Continue irbesartan. (6) Type 2 diabetes mellitus: Plan: - Home regimen is glaring 20 units HS, metformin 1 g twice daily. - Will convert to Lantus 10 units BID and SSI with CF 40, CR 15. HbA1C 8.3 in December (7) Thoracic compression fracture: Plan: Unclear if these are acute on cervical spine imaging. Does not appear to be having pain here although difficulty communicating with patient Plan - Admit to med/surg. Medically stable for discharge awaiting placement this time. -VTE prophylaxis -Lovenox 40 mg subcu daily started today due to prolonged stay and active cancer - Full Code. Admission and Anticipated Discharge Date Admission Date: March 11, 2022 Subjective No acute concerns or questions by the patient. Medically stable for discharge awaiting placement this time. No acute change in her gait instability or right arm pain. Review of Systems Review of Systems: All systems reviewed & are unremarkable except as noted in Subjective Physical Exam Constitutional: WD/WN, vitals as above Respiratory: normal respiratory effort Psychiatric: A+Ox3, euthymic affect Results & Data Results & Data ([facility]) Vital Signs (Past 12 Hours) Vital Signs Temp Pulse Resp BP Pulse Ox O2 Del Method 03/14/22 07:20 36.4 C L 73 18 109/68 97 Room Air PG Care Time/CCT Total # of Minutes Spent Total Time Spent with Patient: Total time spent is greater than 50% in coordination of care (as documented) at patient's floor/unit and/or counseling patient: Coding Level of Care Code 02455 Subseq Hosp Care Lvl 1 Diagnoses Falls frequently R29.6 Hypomagnesemia E83.42 GBM (glioblastoma multiforme) C71.9 Hyperlipidemia E78.5 Hypertension I10 Type 2 diabetes mellitus E11.9 Thoracic compression fracture S22.000A
[2022-03-14] MEDS: INSULIN ASPART PER UNIT SC SCH ×4 (09:31→20:35)
[2022-03-14] MEDS: LANTUS PER UNIT CHARGE SQ SCH ×2 (09:32→20:40)
--- NOTE | 2022-03-14 11:54 | Hospitalist Progress Note ---
Date of Service March 14, 2022 Assessment & Plan (1) Falls frequently: Plan: - Imaging shows a subtle superior endplate compression at T2 and T3 without retropulsion, technically age-indeterminate. Otherwise imaging negative for fractures, dislocation, or otherwise acute process. - Patient without any complaints at this time. Feels she is weak, having trouble walking without assistance at home. - PT/OT. - No significant new intracranial pathology on brain MRI. Will forward images to her oncologist at [place] given edema whether she would benefit from steroids. - Planning on placement due to ongoing concern for safety at home and no significant reversible etiology at this time. (2) Hypomagnesemia: Plan: - Mag slightly low at 1.5, repleted with 2 g of mag in ED. 1g extra given overnight. - Mg level 2.0, will repeat with a.m. labs Continue on oral magnesium chloride 128 mg p.o. twice daily (3) GBM (glioblastoma multiforme): Plan: - Continue Keppra 500 mg twice daily. - s/p radiation therapy, Temodar/bevacizumab - CT: no changes to mass. - Has baseline expressive aphasia, right-sided weakness/numbness. (4) Hyperlipidemia: Plan: - Continue atorvastatin. (5) Hypertension: Plan: - Continue irbesartan. (6) Type 2 diabetes mellitus: Plan: - Home regimen is glaring 20 units HS, metformin 1 g twice daily. - Will convert to Lantus 10 units BID and SSI with CF 40, CR 15. HbA1C 8.3 in December (7) Thoracic compression fracture: Plan: Unclear if these are acute on cervical spine imaging. Does not appear to be having pain here although difficulty communicating with patient Plan - Admit to med/surg. Medically stable for discharge awaiting placement this time. -VTE prophylaxis -Lovenox 40 mg subcu daily started today due to prolonged stay and active cancer - Full Code. Admission and Anticipated Discharge Date Admission Date: March 11, 2022 Subjective Patient reports improving strength and asking for more physical rehabilitation at this time. She is medically stable for discharge pending placement. We will have the brain MRI images forwarded to [facility] so that they can be viewed by her oncologist Dr. Luke (available on [phone]). Review of Systems Review of Systems: All systems reviewed & are unremarkable except as noted in Subjective Physical Exam Constitutional: WD/WN, vitals as above Respiratory: normal respiratory effort, lungs clear to auscultation normal respiratory effort Cardiovascular: RRR, no murmur, no edema Gastrointestinal (Abdomen): normal bowel sounds, soft, nontender, no hepatosplenomegaly Neurologic: moves all extremities and awake Speech / Cognition: + expressive aphasia Motor/Sensory: no tremor Results & Data Results & Data ([facility]) Vital Signs (Past 12 Hours) Vital Signs Temp Pulse Resp BP Pulse Ox O2 Del Method 03/14/22 07:20 36.4 C L 73 18 109/68 97 Room Air PG Care Time/CCT Total # of Minutes Spent Total Time Spent with Patient: Total time spent is greater than 50% in coordination of care (as documented) at patient's floor/unit and/or counseling patient: Coding Level of Care Code 47326 Subseq Hosp Care Lvl 1 Diagnoses Falls frequently R29.6 Hypomagnesemia E83.42 GBM (glioblastoma multiforme) C71.9 Hyperlipidemia E78.5 Hypertension I10 Type 2 diabetes mellitus E11.9 Thoracic compression fracture S22.000A
[2022-03-14] MEDS: ATORVASTATIN 40 MG TAB PO SCH (20:34)
[2022-03-14] MEDS: MICONAZOLE NITRATE POWDER 43 GM EXT PRN (20:37)
[2022-03-15] MEDS: IRBESARTAN 75 MG TAB PO SCH (08:22)
[2022-03-15] MEDS: FLUoxetine HCL 10 MG CAP PO SCH (08:22)
[2022-03-15] MEDS: GABAPENTIN 100 MG CAP PO SCH ×3 (08:23→20:41)
[2022-03-15] MEDS: ENOXAPARIN INJ 40 MG/0.4 ML SYR SQ SCH (08:23)
[2022-03-15] MEDS: CHOLECALCIFEROL 5,000 UNITS 125 MCG TAB PO SCH (08:23)
[2022-03-15] MEDS: levETIRAcetam 500 MG TAB PO SCH ×2 (08:23→20:42)
[2022-03-15] MEDS: MAGNESIUM CHLORIDE W/CALCIUM 64MG DELAYED REL TAB PO SCH ×2 (08:23→20:43)
[2022-03-15] MEDS: INSULIN ASPART PER UNIT SC SCH ×5 (09:39→21:05)
[2022-03-15] MEDS: LANTUS PER UNIT CHARGE SQ SCH ×2 (09:44→21:05)
[2022-03-15 09:47] LABS: Basophils # (auto) 0.03 K/uL (0-0.2); Basophils % (auto) 0.8 %; Eosinophils # (auto) 0.08 K/uL (0-0.50); Eosinophils % (auto) 2.2 %; Hematocrit (blood only) 39.6 % (34.1-44.9); Hemoglobin 12.9 g/dl (12.0-16.0); Immature Granulocytes # (auto) 0.01 K/uL (0.00-0.02); Immature Granulocytes % (auto) 0.3 %; Lymphocytes # (auto) 0.78 K/uL (1.2-3.4); Lymphocytes % (auto) 21.5 %; Mean Corpuscular Hgb Conc 32.6 g/dL (32.0-36.0); Mean Corpuscular Volume 92.1 fL (80.0-100.0); Mean Platelet Volume 11.5 fL (9.4-12.3); Monocytes # (auto) 0.42 K/uL (0.24-0.82); Monocytes % (auto) 11.6 %; Neutrophils # (auto) 2.31 K/uL (1.4-6.5); Neutrophils % (auto) 63.6 %; Platelet Count 156 K/uL (130-400); RDW Coefficient of Variation 15.1 % (11.5-14.5); RDW Standard Deviation 51.2 fL (36.4-46.3); White Blood Count 3.63 K/ul (4.8-10.8)
[2022-03-15 10:12] LABS: BUN Creatinine Ratio 25.4 (10-20); Calcium 9.5 mg/dl (8.5-10.1); Creatinine Clr Calc Pharmacy 104.6 ml/min; Est GFR (African American) 107.6 ml/min; Est GFR (Non-African American) 92.9 ml/min; Magnesium 1.9 mg/dl (1.7-2.4); Potassium 4.2 mmol/L (3.5-5.1)
--- NOTE | 2022-03-15 19:21 | Hospitalist Progress Note ---
Date of Service March 15, 2022 Assessment & Plan (1) Falls frequently: Plan: - Imaging shows a subtle superior endplate compression at T2 and T3 without retropulsion, technically age-indeterminate. Otherwise imaging negative for fractures, dislocation, or otherwise acute process. - Patient without any complaints at this time. Feels she is weak, having trouble walking without assistance at home. - PT/OT. -Discussed with her oncologist today. Hopefully the images will arrive tomorrow for him to review and will determine need for steroids at that time. - Planning on placement due to ongoing concern for safety at home and no significant reversible etiology at this time. (2) Hypomagnesemia: Plan: - Mag slightly low at 1.5, repleted with 2 g of mag in ED. 1g extra given overnight. - Mg level 1.9, now resolved Continue on oral magnesium chloride 128 mg p.o. twice daily (3) GBM (glioblastoma multiforme): Plan: - Continue Keppra 500 mg twice daily. - s/p radiation therapy, Temodar/bevacizumab - CT: no changes to mass. - Has baseline expressive aphasia, right-sided weakness/numbness. (4) Hyperlipidemia: Plan: - Continue atorvastatin. (5) Hypertension: Plan: - Continue irbesartan. (6) Type 2 diabetes mellitus: Plan: - Home regimen is glaring 20 units HS, metformin 1 g twice daily. - Will convert to Lantus 10 units BID and SSI with CF 40, CR 15. HbA1C 8.3 in December (7) Thoracic compression fracture: Plan: Unclear if these are acute on cervical spine imaging. Does not appear to be having pain here although difficulty communicating with patient Plan - Admit to med/surg. Medically stable for discharge awaiting placement this time. -VTE prophylaxis -Lovenox 40 mg subcu daily due to prolonged stay and active cancer - Full Code. Admission and Anticipated Discharge Date Admission Date: March 11, 2022 Subjective Discussed with her oncologist at [place] however he did not have the brain MRI images. Discussed with radiology to push these images to [place]. No acute concerns or questions from the patient. She is medically stable for discharge awaiting placement at this time. Review of Systems Review of Systems: All systems reviewed & are unremarkable except as noted in Subjective Physical Exam Constitutional: WD/WN, vitals as above Eyes: + anicteric sclerae; normal pupil size Respiratory: normal respiratory effort Neurologic: awake Speech / Cognition: + expressive aphasia Motor/Sensory: no tremor Psychiatric: A+Ox3, euthymic affect Results & Data Results & Data ([facility]) Vital Signs (Past 12 Hours) Vital Signs Temp Pulse Resp BP Pulse Ox O2 Del Method 03/15/22 15:35 36.4 C L 68 18 108/72 92 Room Air 03/15/22 07:35 36.6 C 77 18 107/69 95 Room Air PG Care Time/CCT Total # of Minutes Spent Total Time Spent with Patient: Total time spent is greater than 50% in coordination of care (as documented) at patient's floor/unit and/or counseling patient: Coding Level of Care Code 15828 Subseq Hosp Care Lvl 1 Diagnoses Falls frequently R29.6 Hypomagnesemia E83.42 GBM (glioblastoma multiforme) C71.9 Hyperlipidemia E78.5 Hypertension I10 Type 2 diabetes mellitus E11.9 Thoracic compression fracture S22.000A
[2022-03-15] MEDS: ATORVASTATIN 40 MG TAB PO SCH (20:41)
[2022-03-16] MEDS: GABAPENTIN 100 MG CAP PO SCH ×3 (08:54→21:41)
[2022-03-16] MEDS: levETIRAcetam 500 MG TAB PO SCH ×2 (08:54→21:42)
[2022-03-16] MEDS: MAGNESIUM CHLORIDE W/CALCIUM 64MG DELAYED REL TAB PO SCH ×2 (08:54→21:42)
[2022-03-16] MEDS: CHOLECALCIFEROL 5,000 UNITS 125 MCG TAB PO SCH (08:54)
[2022-03-16] MEDS: ENOXAPARIN INJ 40 MG/0.4 ML SYR SQ SCH (08:55)
[2022-03-16] MEDS: FLUoxetine HCL 10 MG CAP PO SCH (08:55)
[2022-03-16] MEDS: IRBESARTAN 75 MG TAB PO SCH (08:55)
[2022-03-16] MEDS: INSULIN ASPART PER UNIT SC SCH ×4 (09:03→21:42)
[2022-03-16] MEDS: LANTUS PER UNIT CHARGE SQ SCH ×2 (09:08→21:41)
--- NOTE | 2022-03-16 11:38 | Hospitalist Progress Note ---
Date of Service March 16, 2022 Assessment & Plan (1) Falls frequently: Plan: - Imaging shows a subtle superior endplate compression at T2 and T3 without retropulsion, technically age-indeterminate. Otherwise imaging negative for fractures, dislocation, or otherwise acute process. - Patient without any complaints at this time. Feels she is weak, having trouble walking without assistance at home. - PT/OT. - Discussed with her oncologist today -no need for steroids. Planning to follow-up in 6 weeks with repeat brain MRI at that time which their office will arrange. - Planning on placement due to ongoing concern for safety at home and no significant reversible etiology at this time. (2) Hypomagnesemia: Plan: - Mag slightly low at 1.5, repleted with 2 g of mag in ED. 1g extra given overn ight. - Mg level 1.9, now resolved, will repeat periodically Continue on oral magnesium chloride 128 mg p.o. twice daily (3) GBM (glioblastoma multiforme): Plan: - Continue Keppra 500 mg twice daily. - s/p radiation therapy, Temodar/bevacizumab - CT: no changes to mass. - Has baseline expressive aphasia, right-sided weakness/numbness. (4) Hyperlipidemia: Plan: - Continue atorvastatin. (5) Hypertension: Plan: - Continue irbesartan. (6) Type 2 diabetes mellitus: Plan: - Home regimen is glaring 20 units HS, metformin 1 g twice daily. - Continue on Lantus 10 units BID and SSI with CF 40, CR 15. HbA1C 8.3 in December (7) Thoracic compression fracture: Plan: Unclear if these are acute on cervical spine imaging. Does not appear to be having pain here although difficulty communicating with patient Plan - Admit to med/surg. Medically stable for discharge awaiting placement this time. - VTE prophylaxis -Lovenox 40 mg subcu daily due to prolonged stay and active cancer - Full Code. Admission and Anticipated Discharge Date Admission Date: March 11, 2022 Subjective Discussed with her oncologist today now he is reviewed her images. No change to management at this time. The patient reports no acute concerns or questions. Medically stable awaiting rehab at this time. Review of Systems Review of Systems: All systems reviewed & are unremarkable except as noted in Subjective Physical Exam Constitutional: WD/WN, vitals as above Neck: trachea midline, no thyromegaly Respiratory: normal respiratory effort, lungs clear to auscultation Cardiovascular: RRR, no murmur, no edema Gastrointestinal (Abdomen): normal bowel sounds, soft, nontender, no hepatosplenomegaly Musculoskeletal: no cyanosis or clubbing, extremities motor strength 5/5 Skin: no rashes, warm and dry Neurologic: moves all extremities and awake; not confused Psychiatric: A+Ox3, euthymic affect Results & Data Results & Data ([facility]) Vital Signs (Past 12 Hours) Vital Signs Temp Pulse Resp BP Pulse Ox O2 Del Method 03/16/22 07:26 36.5 C 66 17 134/83 97 Room Air PG Care Time/CCT Total # of Minutes Spent Total Time Spent with Patient: Total time spent is greater than 50% in coordination of care (as documented) at patient's floor/unit and/or counseling patient: Coding Level of Care Code 60189 Subseq Hosp Care Lvl 1 Diagnoses Falls frequently R29.6 Hypomagnesemia E83.42 GBM (glioblastoma multiforme) C71.9 Hyperlipidemia E78.5 Hypertension I10 Type 2 diabetes mellitus E11.9 Thoracic compression fracture S22.000A
[2022-03-16] MEDS ORDERED: COUGH DROP (SUGAR FREE) LOZ 24 LOZ/1 BOX BUCCAL ONE ×2 (17:23→17:33)
[2022-03-16] MEDS: ATORVASTATIN 40 MG TAB PO SCH (21:40)
--- NOTE | 2022-03-17 08:22 | Hospitalist Progress Note ---
Date of Service March 17, 2022 Assessment & Plan (1) Falls frequently: Plan: Imaging shows a subtle superior endplate compression at T2 and T3 without retropulsion, technically age-indeterminate. Otherwise imaging negative for fractures, dislocation, or otherwise acute process. Patient without any complaints at this time. Feels she is weak, having trouble walking without assistance at home. Discussed with her oncologist 03/16 -no need for steroids. Planning to follow-up in 6 weeks with repeat brain MRI at that time which their office will arrange. Per /discussion with oncology, her temozolomide is for maintenance, ok to hold off further while inpatient rehab given barriers to placement w/ $$ of chemo meds Planning on placement due to ongoing concern for safety at home and no significant reversible etiology at this time. Did check B12 level for completeness given balance issues as well as weakness --> low normal at 196. -->Started PO supplementation prior, but changed to IM Will also repeat CK labs w/ am labs, elevated to 321 on admission 03/11, could be contributing to weakness. --Would hold statin if elevated PT/OT--> CM following for SNF placement. #1 choice [facility] (2) Hypomagnesemia: Plan: Mag slightly low at 1.5, repleted with 2 g of mag in ED. 1g extra given overnight. Mg level 1.8 on repeat this morning Continue PO Mag-Chl 128mg BID -- may need to increase to TID pending lab on repeat in AM (3) GBM (glioblastoma multiforme): Plan: Continue Keppra 500 mg twice daily given new onset seizure activity in December after diagnosis - No evidence for seizure activity presently CT: no changes to mass. Has baseline expressive aphasia, right-sided weakness/numbness. s/p radiation therapy, Temodar/bevacizumab NO NEED FOR CHEMO WHILE SNF ABOVE, CM LOOKING TO EXPAND SEARCH (4) Hyperlipidemia: Plan: Continue atorvastatin CK elevated to 321 on admit, will repeat. hold statin if elevated (5) Hypertension: Plan: BP stable 130/84 Continue irbesartan. (6) Type 2 diabetes mellitus: Plan: -Home regimen is glaring 20 units HS, metformin 1 g twice daily. -Continue on Lantus 10 units BID and SSI with CF 40, CR 15. HbA1C 8.3 in December resume home meds at d/c (7) Thoracic compression fracture: Plan: Unclear if these are acute on cervical spine imaging. Does not appear to be having pain here although difficulty communicating with patient, no tenderness on palpation however could be contributing to issues when up/ambulating Plan - Admit to med/surg. Medically stable for discharge awaiting placement this time. - VTE prophylaxis -Lovenox 40 mg subcu daily due to prolonged stay and active cancer - Full Code. Admission and Anticipated Discharge Date Admission Date: March 11, 2022 Supervising Physician Co-Signing Physician Notes PA Supervision Note: I did not personally see or examine the patient today, but I verified all cazares points of ANGELO Asencio's assessment and plan with the following exceptions/additions: None Subjective Eval this morning/lunch time with at bedside. Discussed rehab -- patient states she would be happy to stay here as she cannot do it alone at home. discussed awaiting placement but that rehab inpatient hospital setting not the best for her and continued bed search issues with chemo/$$ at SNF, discussed with and he stated he would be more than happy to have rx sent to home and bring to the rehab if needed. later, w/ return call that no chemo during her inpatient rehab stay, may allow options for beds to be expanded. continued inpatient stay longstanding expressive aphasia, but able to get out what she wants at times. assisting at times as well Review of Systems Review of Systems: All systems reviewed & are unremarkable except as noted in HPI & below Physical Exam Physical Exam: General: WD/WN female sitting up in recliner, at bedside HEENT: eyes equal and reactive, mmm, trachea midline without deviation Resp CTAB, normal effort, no tachypnea/distress, on room air CV: RRR, no m/r/g, no calf tenderness GI:+BS, soft, NT MSK/Neuro: expressive aphasia at baseline/R sided weakness at baseline, pleasant and cooperative, answering questions as able, follows commands Psych: alert to person/place/year Results & Data Results & Data ([facility]) Vital Signs (Past 12 Hours) Vital Signs Temp Pulse Resp BP Pulse Ox Pulse Ox O2 Del Method 03/17/22 07:19 36.7 C 71 18 130/84 94 Room Air 03/16/22 21:40 Room Air 03/16/22 21:40 94 03/16/22 22:27 36.9 C 71 16 93/59 L 94 O2 Del Method 03/17/22 07:19 03/16/22 21:40 03/16/22 21:40 Room Air 03/16/22 22:27 Laboratory Results 03/17/22 03/17/22 03/17/22 Range/Units 12:12 08:26 08:26 WBC (4.8-10.8) K/ul RBC (3.93-5.22) M/uL Hgb (12.0-16.0) g/dl Hct (34.1-44.9) % MCV (80.0-100.0) fL MCH (25.0-34.0) pg MCHC (32.0-36.0) g/dL RDW Std Deviation (36.4-46.3) fL RDW Coeff of Meghan (11.5-14.5) % Plt Count (130-400) K/uL MPV (9.4-12.3) fL Sodium (136-145) mmol/L Potassium (3.5-5.1) mmol/L Chloride (98-107) mmol/L Carbon Dioxide (21-32) mmol/L Anion Gap (3-11) BUN (6-23) mg/dl Creatinine (0.6-1.2) mg/dl Est Cr Clr Drug Dosing ml/min Est GFR ( Amer) ml/min Est GFR (Non-Af Amer) ml/min BUN/Creatinine Ratio (10-20) Glucose (70-99(Fasting)) mg/dl POC Glucose 178 H (70-99) mg/dl Calcium (8.5-10.1) mg/dl Magnesium Vitamin B1 Pending Vitamin B12 196 (180-914) pg/ml 03/17/22 03/17/22 03/17/22 Range/Units 08:26 08:26 08:26 WBC 2.53 L (4.8-10.8) K/ul RBC 4.15 (3.93-5.22) M/uL Hgb 12.4 (12.0-16.0) g/dl Hct 38.4 (34.1-44.9) % MCV 92.5 (80.0-100.0) fL MCH 29.9 (25.0-34.0) pg MCHC 32.3 (32.0-36.0) g/dL RDW Std Deviation 51.4 H (36.4-46.3) fL RDW Coeff of Meghan 15.2 H (11.5-14.5) % Plt Count 129 L (130-400) K/uL MPV 11.3 (9.4-12.3) fL Sodium 141 (136-145) mmol/L Potassium 4.0 (3.5-5.1) mmol/L Chloride 109 H (98-107) mmol/L Carbon Dioxide 26 (21-32) mmol/L Anion Gap 6 (3-11) BUN 16 (6-23) mg/dl Creatinine 0.55 L (0.6-1.2) mg/dl Est Cr Clr Drug Dosing 112.2 ml/min Est GFR ( Amer) 110.1 ml/min Est GFR (Non-Af Amer) 95.0 ml/min BUN/Creatinine Ratio 29.1 H (10-20) Glucose 137 H (70-99(Fasting)) mg/dl POC Glucose (70-99) mg/dl Calcium 9.1 (8.5-10.1) mg/dl Magnesium 1.8 Cancelled Vitamin B1 Vitamin B12 (180-914) pg/ml 03/17/22 03/16/22 03/16/22 Range/Units 08:14 20:33 17:18 WBC (4.8-10.8) K/ul RBC (3.93-5.22) M/uL Hgb (12.0-16.0) g/dl Hct (34.1-44.9) % MCV (80.0-100.0) fL MCH (25.0-34.0) pg MCHC (32.0-36.0) g/dL RDW Std Deviation (36.4-46.3) fL RDW Coeff of Meghan (11.5-14.5) % Plt Count (130-400) K/uL MPV (9.4-12.3) fL Sodium (136-145) mmol/L Potassium (3.5-5.1) mmol/L Chloride (98-107) mmol/L Carbon Dioxide (21-32) mmol/L Anion Gap (3-11) BUN (6-23) mg/dl Creatinine (0.6-1.2) mg/dl Est Cr Clr Drug Dosing ml/min Est GFR ( Amer) ml/min Est GFR (Non-Af Amer) ml/min BUN/Creatinine Ratio (10-20) Glucose (70-99(Fasting)) mg/dl POC Glucose 132 H 175 H 128 H (70-99) mg/dl Calcium (8.5-10.1) mg/dl Magnesium Vitamin B1 Vitamin B12 (180-914) pg/ml PG Care Time/CCT Total # of Minutes Spent Total Time Spent with Patient: Total time spent is greater than 50% in coordination of care (as documented) at patient's floor/unit and/or counseling patient: Coding Level of Care Code 39585 Subseq Hosp Care Lvl 3 Diagnoses Falls frequently R29.6 Hypomagnesemia E83.42 GBM (glioblastoma multiforme) C71.9 Hyperlipidemia E78.5 Hypertension I10 Type 2 diabetes mellitus E11.9 Thoracic compression fracture S22.000A
[2022-03-17] MEDS: FLUoxetine HCL 10 MG CAP PO SCH (08:52)
[2022-03-17] MEDS: levETIRAcetam 500 MG TAB PO SCH ×2 (08:52→20:24)
[2022-03-17] MEDS: CHOLECALCIFEROL 5,000 UNITS 125 MCG TAB PO SCH (08:52)
[2022-03-17] MEDS: GABAPENTIN 100 MG CAP PO SCH ×3 (08:52→20:24)
[2022-03-17] MEDS: MAGNESIUM CHLORIDE W/CALCIUM 64MG DELAYED REL TAB PO SCH ×2 (08:52→20:24)
[2022-03-17] MEDS: IRBESARTAN 75 MG TAB PO SCH (08:52)
[2022-03-17] MEDS: ENOXAPARIN INJ 40 MG/0.4 ML SYR SQ SCH (08:53)
[2022-03-17] MEDS: INSULIN ASPART PER UNIT SC SCH ×4 (09:00→20:43)
[2022-03-17] MEDS: LANTUS PER UNIT CHARGE SQ SCH ×2 (09:00→20:43)
[2022-03-17 09:36] LABS: BUN Creatinine Ratio 29.1 (10-20); Calcium 9.1 mg/dl (8.5-10.1); Creatinine Clr Calc Pharmacy 112.2 ml/min; Est GFR (African American) 110.1 ml/min; Magnesium 1.8 mg/dl (1.7-2.4)
[2022-03-17 09:48] LABS: Hematocrit (blood only) 38.4 % (34.1-44.9); Hemoglobin 12.4 g/dl (12.0-16.0); Mean Corpuscular Hemoglobin 29.9 pg (25.0-34.0); Mean Corpuscular Hgb Conc 32.3 g/dL (32.0-36.0); Mean Corpuscular Volume 92.5 fL (80.0-100.0); Mean Platelet Volume 11.3 fL (9.4-12.3); Platelet Count 129 K/uL (130-400); RDW Coefficient of Variation 15.2 % (11.5-14.5); RDW Standard Deviation 51.4 fL (36.4-46.3); Red Blood Count 4.15 M/uL (3.93-5.22); White Blood Count 2.53 K/ul (4.8-10.8)
[2022-03-17] MEDS ORDERED: CYANOCOBALAMIN (B-12) 500 MCG TABLET PO SCH (10:30)
[2022-03-17] MEDS: ATORVASTATIN 40 MG TAB PO SCH (20:24)
--- NOTE | 2022-03-18 08:17 | Hospitalist Progress Note ---
Date of Service March 18, 2022 Assessment & Plan (1) Falls frequently: Plan: Imaging shows a subtle superior endplate compression at T2 and T3 without retropulsion, technically age-indeterminate. Otherwise imaging negative for fractures, dislocation, or otherwise acute process. Patient without any complaints at this time. Feels she is weak, having trouble walking without assistance at home. Discussed with her oncologist 03/16 -no need for steroids. Planning to follow-up in 6 weeks with repeat brain MRI at that time which their office will arrange. Per /discussion with oncology, her temozolomide is for maintenance, ok to hold off further while inpatient rehab given barriers to placement w/ $$ of chemo meds Planning on placement due to ongoing concern for safety at home and no significant reversible etiology at this time. Did check B12 level for completeness given balance issues as well as weakness --> low normal at 196. -->Started PO supplementation prior, but changed to IM while inpatient Will also repeat CK labs w/ am labs, elevated to 321 on admission 03/11, could be contributing to weakness. WNL on repeat. continued statin Of note, checked Lyme disease for completeness given weakness/falls -- see below, IgM equivocal, IgG positive PT/OT--> CM following for SNF placement. #1 choice [facility] (2) Lyme disease: Plan: IgM equivocal, IgG positive. WB pending Discussed with , they live in the [facility], never tx for lyme in past --> Start Doxy 100mg IV BID to cover for possible co-infection with anaplasmosis --> check peripheral smear, anaplasmosis/bab Monitor WB (3) Hypomagnesemia: Plan: Mag slightly low at 1.5, repleted with 2 g of mag in ED. 1g extra given overnight. Mg level 1.8 , given 1gm IV Continue PO Mag-Chl 128mg BID , consider increasing to TID (4) GBM (glioblastoma multiforme): Plan: Continue Keppra 500 mg twice daily given new onset seizure activity in December after diagnosis - No evidence for seizure activity presently CT: no changes to mass. Has baseline expressive aphasia, right-sided weakness/numbness. s/p radiation therapy, Temodar/bevacizumab NO NEED FOR CHEMO WHILE SNF ABOVE, CM LOOKING TO EXPAND SEARCH (5) Hyperlipidemia: Plan: Continue atorvastatin CK elevated to 321 on admit --> repeat 15 (6) Hypertension: Plan: BP stable borderline 93/59 holding irbesartan, given NSS @80cc/hr for 500cc, monitor PO intake Monitor BP (7) Type 2 diabetes mellitus: Plan: Home regimen is glargine 20 units HS, metformin 1 g twice daily. Continue on Lantus 10 units BID and SSI with CF 40, CR 15. HbA1C 8.3 in December resume home meds at d/c (8) Thoracic compression fracture: Plan: Unclear if these are acute on cervical spine imaging. Does not appear to be having pain here although difficulty communicating with patient, no tenderness on palpation however could be contributing to issues when up/ambulating Plan VTE prophylaxis -Lovenox 40 mg subcu daily due to prolonged stay and active cancer NSS @80cc/hr [id number], hold irbesartan Start doxy IV BID for lyme testing, monitor WB Awaiting bed at rehab -- likely to remain inpatient through , bed on Monday but still looking to see if first choices are options Updated by phone 03/18 Admission and Anticipated Discharge Date Admission Date: March 11, 2022 Supervising Physician Co-Signing Physician Notes PA Supervision Note: I did not personally see or examine the patient today, but I verified all cazares points of ANGELO Asencio's assessment and plan with the following exceptions/additions: None Subjective Eval this morning, doing alright but states doesn't feel that great. Didn't have much appetite this morning but not having any abdominal pain. Discussed chemo medications discussed with CM and hopefully will be able to have placement in next couple of days. Patient denies any fever/chills, chest pain, shortness of breath, vomiting, dysuria at this time. Will hold irbesartan for AM given borderline low BP/give 500cc NSS in the meantime. Review of Systems Review of Systems: All systems reviewed & are unremarkable except as noted in HPI & below Physical Exam Physical Exam: General: WD/WN female laying flat in bed, NAD but reporting poor appetite, fatigued appearing HEENT: eyes equal and reactive, mmm, trachea midline without deviation Resp CTAB, normal effort, no tachypnea/distress, on room air CV: RRR, no m/r/g, no calf tenderness GI:+BS, soft, NT MSK/Neuro: expressive aphasia at baseline/R sided weakness at baseline, pleasant and cooperative, answering questions as able, follows commands Psych: alert to person/place/year Results & Data Results & Data ([facility]) Vital Signs (Past 12 Hours) Vital Signs Temp Pulse Resp BP BP Pulse Ox O2 Del Method 03/18/22 07:06 36.6 C 70 16 105/69 96 Room Air 03/17/22 22:15 36.8 C 67 16 106/67 97 Laboratory Results 03/18/22 03/18/22 03/18/22 Range/Units 12:35 10:09 10:09 WBC 3.25 L (4.8-10.8) K/ul RBC 4.10 (3.93-5.22) M/uL Hgb 12.2 (12.0-16.0) g/dl Hct 37.7 (34.1-44.9) % MCV 92.0 (80.0-100.0) fL MCH 29.8 (25.0-34.0) pg MCHC 32.4 (32.0-36.0) g/dL RDW Std Deviation 51.8 H (36.4-46.3) fL RDW Coeff of Meghan 15.2 H (11.5-14.5) % Plt Count 130 (130-400) K/uL MPV 11.6 (9.4-12.3) fL Sodium 140 (136-145) mmol/L Potassium 4.1 (3.5-5.1) mmol/L Chloride 107 (98-107) mmol/L Carbon Dioxide 27 (21-32) mmol/L Anion Gap 6 (3-11) BUN 16 (6-23) mg/dl Creatinine 0.76 (0.6-1.2) mg/dl Est Cr Clr Drug Dosing 81.2 ml/min Est GFR ( Amer) 92.1 ml/min Est GFR (Non-Af Amer) 79.5 ml/min BUN/Creatinine Ratio 21.1 H (10-20) Glucose 203 H (70-99(Fasting)) mg/dl POC Glucose 160 H (70-99) mg/dl Calcium 9.3 (8.5-10.1) mg/dl Magnesium 1.8 (1.7-2.4) mg/dl Total Creatine Kinase (26-192) U/L Lyme Disease IgG Ab (Negative) Lyme IgG (Western Blot) Lyme IgG 18 kDa Band Lyme IgG 23 kDa Band Lyme IgG 28 kDa Band Lyme IgG 30 kDa Band Lyme IgG 39 kDa Band Lyme IgG 41 kDa Band Lyme IgG 45 kDa Band Lyme IgG 58 kDa Band Lyme IgG 66 kDa Band Lyme IgG 93 kDa Band Lyme IgM Ab (WB) Lyme Disease IgM Ab (Negative) Lyme IgM 23 kDa Band Lyme IgM 39 kDa Band Lyme IgM 41 kDa Band 03/18/22 03/17/22 03/17/22 Range/Units 08:11 20:23 17:07 WBC (4.8-10.8) K/ul RBC (3.93-5.22) M/uL Hgb (12.0-16.0) g/dl Hct (34.1-44.9) % MCV (80.0-100.0) fL MCH (25.0-34.0) pg MCHC (32.0-36.0) g/dL RDW Std Deviation (36.4-46.3) fL RDW Coeff of Meghan (11.5-14.5) % Plt Count (130-400) K/uL MPV (9.4-12.3) fL Sodium (136-145) mmol/L Potassium (3.5-5.1) mmol/L Chloride (98-107) mmol/L Carbon Dioxide (21-32) mmol/L Anion Gap (3-11) BUN (6-23) mg/dl Creatinine (0.6-1.2) mg/dl Est Cr Clr Drug Dosing ml/min Est GFR ( Amer) ml/min Est GFR (Non-Af Amer) ml/min BUN/Creatinine Ratio (10-20) Glucose (70-99(Fasting)) mg/dl POC Glucose 120 H 169 H 173 H (70-99) mg/dl Calcium (8.5-10.1) mg/dl Magnesium (1.7-2.4) mg/dl Total Creatine Kinase (26-192) U/L Lyme Disease IgG Ab (Negative) Lyme IgG (Western Blot) Lyme IgG 18 kDa Band Lyme IgG 23 kDa Band Lyme IgG 28 kDa Band Lyme IgG 30 kDa Band Lyme IgG 39 kDa Band Lyme IgG 41 kDa Band Lyme IgG 45 kDa Band Lyme IgG 58 kDa Band Lyme IgG 66 kDa Band Lyme IgG 93 kDa Band Lyme IgM Ab (WB) Lyme Disease IgM Ab (Negative) Lyme IgM 23 kDa Band Lyme IgM 39 kDa Band Lyme IgM 41 kDa Band 03/17/22 03/17/22 03/17/22 Range/Units 08:26 08:26 08:26 WBC (4.8-10.8) K/ul RBC (3.93-5.22) M/uL Hgb (12.0-16.0) g/dl Hct (34.1-44.9) % MCV (80.0-100.0) fL MCH (25.0-34.0) pg MCHC (32.0-36.0) g/dL RDW Std Deviation (36.4-46.3) fL RDW Coeff of Meghan (11.5-14.5) % Plt Count (130-400) K/uL MPV (9.4-12.3) fL Sodium (136-145) mmol/L Potassium (3.5-5.1) mmol/L Chloride (98-107) mmol/L Carbon Dioxide (21-32) mmol/L Anion Gap (3-11) BUN (6-23) mg/dl Creatinine (0.6-1.2) mg/dl Est Cr Clr Drug Dosing ml/min Est GFR ( Amer) ml/min Est GFR (Non-Af Amer) ml/min BUN/Creatinine Ratio (10-20) Glucose (70-99(Fasting)) mg/dl POC Glucose (70-99) mg/dl Calcium (8.5-10.1) mg/dl Magnesium (1.7-2.4) mg/dl Total Creatine Kinase 15 L (26-192) U/L Lyme Disease IgG Ab Positive A (Negative) Lyme IgG (Western Blot) Pending Lyme IgG 18 kDa Band Pending Lyme IgG 23 kDa Band Pending Lyme IgG 28 kDa Band Pending Lyme IgG 30 kDa Band Pending Lyme IgG 39 kDa Band Pending Lyme IgG 41 kDa Band Pending Lyme IgG 45 kDa Band Pending Lyme IgG 58 kDa Band Pending Lyme IgG 66 kDa Band Pending Lyme IgG 93 kDa Band Pending Lyme IgM Ab (WB) Pending Lyme Disease IgM Ab Equivocal A (Negative) Lyme IgM 23 kDa Band Pending Lyme IgM 39 kDa Band Pending Lyme IgM 41 kDa Band Pending PG Care Time/CCT Total # of Minutes Spent Total Time Spent with Patient: Total time spent is greater than 50% in coordination of care (as documented) at patient's floor/unit and/or counseling patient: Coding Level of Care Code 61867 Subseq Hosp Care Lvl 3 Diagnoses Falls frequently R29.6 Lyme disease A69.20 Hypomagnesemia E83.42 GBM (glioblastoma multiforme) C71.9 Hyperlipidemia E78.5 Hypertension I10 Type 2 diabetes mellitus E11.9 Thoracic compression fracture S22.000A
[2022-03-18] MEDS: CYANOCOBALAMIN 1000 MCG/ML VIAL IM SCH (08:47)
[2022-03-18] MEDS: MAGNESIUM CHLORIDE W/CALCIUM 64MG DELAYED REL TAB PO SCH ×2 (08:48→21:17)
[2022-03-18] MEDS: CHOLECALCIFEROL 5,000 UNITS 125 MCG TAB PO SCH (08:48)
[2022-03-18] MEDS: IRBESARTAN 75 MG TAB PO SCH (08:48)
[2022-03-18] MEDS: FLUoxetine HCL 10 MG CAP PO SCH (08:48)
[2022-03-18] MEDS: GABAPENTIN 100 MG CAP PO SCH ×3 (08:49→21:17)
[2022-03-18] MEDS: levETIRAcetam 500 MG TAB PO SCH ×2 (08:49→21:17)
[2022-03-18] MEDS: ENOXAPARIN INJ 40 MG/0.4 ML SYR SQ SCH (08:49)
[2022-03-18] MEDS: INSULIN ASPART PER UNIT SC SCH ×4 (08:49→21:17)
[2022-03-18] MEDS: LANTUS PER UNIT CHARGE SQ SCH ×2 (08:54→21:18)
[2022-03-18 10:47] LABS: BUN Creatinine Ratio 21.1 (10-20); Calcium 9.3 mg/dl (8.5-10.1); Creatinine Clr Calc Pharmacy 81.2 ml/min; Est GFR (African American) 92.1 ml/min; Est GFR (Non-African American) 79.5 ml/min; Magnesium 1.8 mg/dl (1.7-2.4); Potassium 4.1 mmol/L (3.5-5.1)
[2022-03-18 10:50] LABS: Hematocrit (blood only) 37.7 % (34.1-44.9); Hemoglobin 12.2 g/dl (12.0-16.0); Mean Corpuscular Hemoglobin 29.8 pg (25.0-34.0); Mean Corpuscular Hgb Conc 32.4 g/dL (32.0-36.0); Mean Platelet Volume 11.6 fL (9.4-12.3); Platelet Count 130 K/uL (130-400); RDW Coefficient of Variation 15.2 % (11.5-14.5); RDW Standard Deviation 51.8 fL (36.4-46.3); White Blood Count 3.25 K/ul (4.8-10.8)
[2022-03-18] MEDS ORDERED: MAGNESIUM SULFATE / D5W 1 GM/100 ML BAG IV ONE (11:06)
[2022-03-18] MEDS ORDERED: SODIUM CHLORIDE 0.9% 500 ML IV SCH (11:15)
[2022-03-18 16:24] LABS: Lyme Ab IgG w/WB Rflx Positive (Negative); Lyme Ab IgM w/WB Rflx Equivocal (Negative)
[2022-03-18] MEDS ORDERED: cefTRIAXone SODIUM 2,000 MG in DEXTROSE 5% 50 ML IV SCH (18:00)
[2022-03-18] MEDS: DOXYCYCLINE HYCLATE 100 MG in DEXTROSE 5% 100 ML IV SCH (18:07)
[2022-03-18] MEDS: ACETAMINOPHEN 325 MG TAB PO PRN (21:16)
[2022-03-18] MEDS: ATORVASTATIN 40 MG TAB PO SCH (21:17)
[2022-03-19] MEDS: DOXYCYCLINE HYCLATE 100 MG in DEXTROSE 5% 100 ML IV SCH ×2 (05:47→17:43)
--- NOTE | 2022-03-19 08:47 | Hospitalist Progress Note ---
Date of Service March 19, 2022 Assessment & Plan (1) Falls frequently: Plan: Imaging shows a subtle superior endplate compression at T2 and T3 without retropulsion, technically age-indeterminate. Otherwise imaging negative for fractures, dislocation, or otherwise acute process. Patient without any complaints at this time. Feels she is weak, having trouble walking without assistance at home. Discussed with her oncologist 03/16 -no need for steroids. Planning to follow-up in 6 weeks with repeat brain MRI at that time which their office will arrange. Per /discussion with oncology, her temozolomide is for maintenance, ok to hold off further while inpatient rehab given barriers to placement w/ $$ of chemo meds Planning on placement due to ongoing concern for safety at home and no significant reversible etiology at this time. Did check B12 level for completeness given balance issues as well as weakness --> low normal at 196. -->Started PO supplementation prior, but changed to IM while inpatient CK on repeat wnl (321 on admission)-- statin had been continued Of note, checked Lyme disease for completeness given weakness/falls -- see below, IgM equivocal, IgG positive PT/OT--> CM following for SNF placement. #1 choice [facility], continued inpatient stay through the weekend (2) Lyme disease: Plan: IgM equivocal, IgG positive. WB pending Discussed with , they live in the [facility], never tx for lyme in past --> Started Doxy 100mg IV BID 03/18 to cover for possible co-infection with anaplasmosis --> check peripheral smear, anaplasmosis/bab -- peripheral smear negative, PCR pending Monitor WB (3) Hypomagnesemia: Plan: low, replaced, continued Mag currently 1.8 and continues on PO Mag-Chl 128mg BID --rx at d/c (4) GBM (glioblastoma multiforme): Plan: Continue Keppra 500 mg twice daily given new onset seizure activity in December after diagnosis - No evidence for seizure activity presently CT: no changes to mass. Has baseline expressive aphasia, right-sided weakness/numbness. s/p radiation therapy, Temodar/bevacizumab NO NEED FOR CHEMO WHILE SNF ABOVE, CM LOOKING TO EXPAND SEARCH (5) Hyperlipidemia: Plan: Continue atorvastatin CK elevated to 321 on admit --> repeat 15 (6) Hypertension: Plan: BP stable borderline 93/59 AM 03/18, decreased PO intake Given 500cc NSS, placed irbesartan on hold BP 103/65, feeling much improved/improved PO intake Continue to hold irbesartan for now, consider decreased dose pending BP/PO intake to prevent dehydration (7) Type 2 diabetes mellitus: Plan: Home regimen is glargine 20 units HS, metformin 1 g twice daily. Continue on Lantus 10 units BID and SSI with CF 40, CR 15. HbA1C 8.3 in December resume home meds at d/c (8) Thoracic compression fracture: Plan: Unclear if these are acute on cervical spine imaging. Does not appear to be having pain here although difficulty communicating with patient, no tenderness on palpation however could be contributing to issues when up/ambulating Plan VTE prophylaxis -Lovenox 40 mg subcu daily due to prolonged stay and active cancer Continue Doxy IV BID, monitor WB updated at bedside 03/19 PT/OT consulted -- continued search for rehab, inpatient through the weekend Consider home w/ services if making enough improvement with tx of Lyme??? Admission and Anticipated Discharge Date Admission Date: March 11, 2022 Supervising Physician Co-Signing Physician Notes PA Supervision Note: I did not personally see or examine the patient today, but I verified all cazares points of ANGELO Asencio's assessment and plan with the following exceptions/additions: None Subjective eval this morning, sitting up in chair at bedside reports feeling MUCH better today, improvement in appetite/energy discussed tx for lyme and continued doxycycline and will monitor response with treatment while awaiting placement no fever/chills, chest pain, shortness of breath, abdominal pain, nausea or vomiting. Questions/concerns addressed at this time. Review of Systems Review of Systems: All systems reviewed & are unremarkable except as noted in HPI & below Physical Exam Physical Exam: General: WD/WN female sitting up in recliner, at bedside, improved energy/mood, improved appetite HEENT: eyes equal and reactive, mmm, trachea midline without deviation Resp CTAB, normal effort, no tachypnea/distress, on room air CV: RRR, no m/r/g, no calf tenderness GI:+BS, soft, NT MSK/Neuro: expressive aphasia at baseline/R sided weakness at baseline, pleasant and cooperative, answering questions as able, follows commands Psych: alert to person/place/year, pleasant and coopeative Results & Data Results & Data ([facility]) Vital Signs (Past 12 Hours) Vital Signs Temp Pulse Resp BP BP Pulse Ox O2 Del Method 03/19/22 07:27 36.5 C 65 16 112/70 96 Room Air 03/18/22 21:02 36.8 C 68 16 114/72 98 Room Air Laboratory Results 03/19/22 03/19/22 03/19/22 Range/Units 17:20 12:13 08:20 WBC (4.8-10.8) K/ul RBC (3.93-5.22) M/uL Hgb (12.0-16.0) g/dl Hct (34.1-44.9) % MCV (80.0-100.0) fL MCH (25.0-34.0) pg MCHC (32.0-36.0) g/dL RDW Std Deviation (36.4-46.3) fL RDW Coeff of Meghan (11.5-14.5) % Plt Count (130-400) K/uL MPV (9.4-12.3) fL Immature Gran % (Auto) % Neut % (Auto) % Lymph % (Auto) % [place] % (Auto) % Eos % (Auto) % Baso % (Auto) % Neut # (Auto) (1.4-6.5) K/uL Lymph # (Auto) (1.2-3.4) K/uL [place] # (Auto) (0.24-0.82) K/uL Eos # (Auto) (0-0.50) K/uL Baso # (Auto) (0-0.2) K/uL Immature Gran # (Auto) (0.00-0.02) K/uL Sodium (136-145) mmol/L Potassium (3.5-5.1) mmol/L Chloride (98-107) mmol/L Carbon Dioxide (21-32) mmol/L Anion Gap (3-11) BUN (6-23) mg/dl Creatinine (0.6-1.2) mg/dl Est Cr Clr Drug Dosing ml/min Est GFR ( Amer) ml/min Est GFR (Non-Af Amer) ml/min BUN/Creatinine Ratio (10-20) Glucose (70-99(Fasting)) mg/dl POC Glucose 133 H 199 H 130 H (70-99) mg/dl Calcium (8.5-10.1) mg/dl Magnesium (1.7-2.4) mg/dl A. phagocytophilum DNA 03/19/22 03/19/22 03/19/22 Range/Units 07:18 07:18 07:17 WBC 2.20 L (4.8-10.8) K/ul RBC 4.00 (3.93-5.22) M/uL Hgb 11.8 L (12.0-16.0) g/dl Hct 36.6 (34.1-44.9) % MCV 91.5 (80.0-100.0) fL MCH 29.5 (25.0-34.0) pg MCHC 32.2 (32.0-36.0) g/dL RDW Std Deviation 51.5 H (36.4-46.3) fL RDW Coeff of Meghan 15.2 H (11.5-14.5) % Plt Count 140 (130-400) K/uL MPV 11.8 (9.4-12.3) fL Immature Gran % (Auto) 0.5 % Neut % (Auto) 59.5 % Lymph % (Auto) 24.1 % [place] % (Auto) 11.8 % Eos % (Auto) 2.7 % Baso % (Auto) 1.4 % Neut # (Auto) 1.31 L (1.4-6.5) K/uL Lymph # (Auto) 0.53 L (1.2-3.4) K/uL [place] # (Auto) 0.26 (0.24-0.82) K/uL Eos # (Auto) 0.06 (0-0.50) K/uL Baso # (Auto) 0.03 (0-0.2) K/uL Immature Gran # (Auto) 0.01 (0.00-0.02) K/uL Sodium 142 (136-145) mmol/L Potassium 4.1 (3.5-5.1) mmol/L Chloride 109 H (98-107) mmol/L Carbon Dioxide 26 (21-32) mmol/L Anion Gap 7 (3-11) BUN 14 (6-23) mg/dl Creatinine 0.57 L (0.6-1.2) mg/dl Est Cr Clr Drug Dosing 108.2 ml/min Est GFR ( Amer) 108.9 ml/min Est GFR (Non-Af Amer) 93.9 ml/min BUN/Creatinine Ratio 24.6 H (10-20) Glucose 127 H (70-99(Fasting)) mg/dl POC Glucose (70-99) mg/dl Calcium 9.1 (8.5-10.1) mg/dl Magnesium 1.8 (1.7-2.4) mg/dl A. phagocytophilum DNA Pending 03/18/22 Range/Units 20:26 WBC (4.8-10.8) K/ul RBC (3.93-5.22) M/uL Hgb (12.0-16.0) g/dl Hct (34.1-44.9) % MCV (80.0-100.0) fL MCH (25.0-34.0) pg MCHC (32.0-36.0) g/dL RDW Std Deviation (36.4-46.3) fL RDW Coeff of Meghan (11.5-14.5) % Plt Count (130-400) K/uL MPV (9.4-12.3) fL Immature Gran % (Auto) % Neut % (Auto) % Lymph % (Auto) % [place] % (Auto) % Eos % (Auto) % Baso % (Auto) % Neut # (Auto) (1.4-6.5) K/uL Lymph # (Auto) (1.2-3.4) K/uL [place] # (Auto) (0.24-0.82) K/uL Eos # (Auto) (0-0.50) K/uL Baso # (Auto) (0-0.2) K/uL Immature Gran # (Auto) (0.00-0.02) K/uL Sodium (136-145) mmol/L Potassium (3.5-5.1) mmol/L Chloride (98-107) mmol/L Carbon Dioxide (21-32) mmol/L Anion Gap (3-11) BUN (6-23) mg/dl Creatinine (0.6-1.2) mg/dl Est Cr Clr Drug Dosing ml/min Est GFR ( Amer) ml/min Est GFR (Non-Af Amer) ml/min BUN/Creatinine Ratio (10-20) Glucose (70-99(Fasting)) mg/dl POC Glucose 157 H (70-99) mg/dl Calcium (8.5-10.1) mg/dl Magnesium (1.7-2.4) mg/dl A. phagocytophilum DNA PG Care Time/CCT Total # of Minutes Spent Total Time Spent with Patient: Total time spent is greater than 50% in coordination of care (as documented) at patient's floor/unit and/or counseling patient: Coding Level of Care Code 88741 Subseq Hosp Care Lvl 3 Diagnoses Falls frequently R29.6 Lyme disease A69.20 Hypomagnesemia E83.42 GBM (glioblastoma multiforme) C71.9 Hyperlipidemia E78.5 Hypertension I10 Type 2 diabetes mellitus E11.9 Thoracic compression fracture S22.000A
[2022-03-19] MEDS: CHOLECALCIFEROL 5,000 UNITS 125 MCG TAB PO SCH (09:15)
[2022-03-19] MEDS: CYANOCOBALAMIN 1000 MCG/ML VIAL IM SCH (09:15)
[2022-03-19] MEDS: MAGNESIUM CHLORIDE W/CALCIUM 64MG DELAYED REL TAB PO SCH ×2 (09:16→20:14)
[2022-03-19] MEDS: FLUoxetine HCL 10 MG CAP PO SCH (09:16)
[2022-03-19] MEDS: ENOXAPARIN INJ 40 MG/0.4 ML SYR SQ SCH (09:16)
[2022-03-19] MEDS: GABAPENTIN 100 MG CAP PO SCH ×3 (09:17→20:14)
[2022-03-19] MEDS: levETIRAcetam 500 MG TAB PO SCH ×2 (09:17→20:14)
[2022-03-19] MEDS: LANTUS PER UNIT CHARGE SQ SCH ×2 (09:17→20:27)
[2022-03-19] MEDS: INSULIN ASPART PER UNIT SC SCH ×4 (09:17→20:27)
[2022-03-19 10:13] LABS: Basophils # (auto) 0.03 K/uL (0-0.2); Basophils % (auto) 1.4 %; Eosinophils # (auto) 0.06 K/uL (0-0.50); Eosinophils % (auto) 2.7 %; Hematocrit (blood only) 36.6 % (34.1-44.9); Hemoglobin 11.8 g/dl (12.0-16.0); Immature Granulocytes # (auto) 0.01 K/uL (0.00-0.02); Immature Granulocytes % (auto) 0.5 %; Lymphocytes # (auto) 0.53 K/uL (1.2-3.4); Lymphocytes % (auto) 24.1 %; Mean Corpuscular Hemoglobin 29.5 pg (25.0-34.0); Mean Corpuscular Hgb Conc 32.2 g/dL (32.0-36.0); Mean Corpuscular Volume 91.5 fL (80.0-100.0); Mean Platelet Volume 11.8 fL (9.4-12.3); Monocytes # (auto) 0.26 K/uL (0.24-0.82); Monocytes % (auto) 11.8 %; Neutrophils # (auto) 1.31 K/uL (1.4-6.5); Neutrophils % (auto) 59.5 %; Platelet Count 140 K/uL (130-400); RDW Coefficient of Variation 15.2 % (11.5-14.5); RDW Standard Deviation 51.5 fL (36.4-46.3)
[2022-03-19 10:25] LABS: BUN Creatinine Ratio 24.6 (10-20); Calcium 9.1 mg/dl (8.5-10.1); Creatinine Clr Calc Pharmacy 108.2 ml/min; Est GFR (African American) 108.9 ml/min; Est GFR (Non-African American) 93.9 ml/min; Magnesium 1.8 mg/dl (1.7-2.4); Potassium 4.1 mmol/L (3.5-5.1)
[2022-03-19] MEDS: ATORVASTATIN 40 MG TAB PO SCH (20:14)
[2022-03-20] MEDS: DOXYCYCLINE HYCLATE 100 MG in DEXTROSE 5% 100 ML IV SCH ×2 (06:24→17:21)
[2022-03-20 06:52] LABS: Hematocrit (blood only) 40.6 % (34.1-44.9); Hemoglobin 12.9 g/dl (12.0-16.0); Platelet Count 113 K/uL (130-400); White Blood Count 2.51 K/ul (4.8-10.8)
[2022-03-20 07:24] LABS: Mean Corpuscular Hemoglobin 29.6 pg (25.0-34.0); Mean Corpuscular Hgb Conc 31.8 g/dL (32.0-36.0); Mean Corpuscular Volume 93.1 fL (80.0-100.0); RDW Coefficient of Variation 15.2 % (11.5-14.5); RDW Standard Deviation 52.3 fL (36.4-46.3); Red Blood Count 4.36 M/uL (3.93-5.22)
[2022-03-20 07:25] LABS: BUN Creatinine Ratio 31.4 (10-20); Calcium 9.1 mg/dl (8.5-10.1); Est GFR (African American) 112.9 ml/min; Est GFR (Non-African American) 97.4 ml/min; Magnesium 1.7 mg/dl (1.7-2.4); Potassium 4.1 mmol/L (3.5-5.1)
[2022-03-20] MEDS ORDERED: MAGNESIUM SULFATE / D5W 1 GM/100 ML BAG IV ONE (08:00)
--- NOTE | 2022-03-20 08:04 | Hospitalist Progress Note ---
Date of Service March 20, 2022 Assessment & Plan (1) Falls frequently: Plan: Imaging shows a subtle superior endplate compression at T2 and T3 without retropulsion, technically age-indeterminate. Otherwise imaging negative for fractures, dislocation, or otherwise acute process. CK on admit 321, likely 2nd to fall -- wnl on repeat with continued statin use Patient without any complaints at this time. Feels she is weak, having trouble walking without assistance at home. Discussed with her oncologist 03/16 -no need for steroids. Planning to follow-up in 6 weeks with repeat brain MRI at that time which their office will arrange. Per /discussion with oncology, her temozolomide is for maintenance, ok to hold off further while inpatient rehab given barriers to placement w/ $$ of chemo meds Planning on placement due to ongoing concern for safety at home and no significant reversible etiology at this time. B12 level for completeness given balance issues as well as weakness --> low normal at 196, IM replacement while inpatient, continue PO at discharge Lyme disease testing checked for completeness given weakness/falls -- see below, IgM equivocal, IgG positive anaplasmosis PCR pending B1 level pending -- consider empiric thiamine, will start IV 100mg BID PT/OT--> CM following for SNF placement. #1 choice [place], continued inpatient stay through the weekend at least. Patient is still weak, likely needing SNF at d/c but will monitor with continued holding of her irbesartan, will give 500cc NSS for some mild dehydration/reported decreased PO intake (2) Lyme disease: Plan: IgM equivocal, IgG positive Discussed with , they live in the [facility], never tx for lyme in past --> check peripheral smear, anaplasmosis/bab -- peripheral smear negative, PCR pending --> Started Doxy 100mg IV BID 03/18 to cover for possible co-infection with anaplasmosis Monitor WB, pending (3) Hypomagnesemia: Plan: low, replaced, continued continues on PO Mag-Chl 128mg BID --rx at d/c Mag 1.7, will monitor in AM (4) GBM (glioblastoma multiforme): Plan: Continue Keppra 500 mg twice daily given new onset seizure activity in December after diagnosis No evidence for seizure activity presently CT: no changes to mass. Has baseline expressive aphasia, right-sided weakness/numbness. s/p radiation therapy, Temodar/bevacizumab NO NEED FOR CHEMO WHILE SNF ABOVE, CM LOOKING TO EXPAND SEARCH (5) Hyperlipidemia: Plan: Continue atorvastatin CK elevated to 321 on admit --> repeat 15 (6) Hypertension: Plan: BP stable borderline 93/59 AM 03/18, decreased PO intake but improved PO intake 03/19 Given 500cc NSS and placed irbesartan on hold 03/19 and patient was looking MUCH better in afternoon Still slightly dehydrated on exam, ordered additional gentle hydration Consider decreased irbesartan based on PO intake -- said her drinking water is a struggle at times and always pushing her to take oral fluids at home check orthostatics as able (7) Type 2 diabetes mellitus: Plan: Home regimen is glargine 20 units HS, metformin 1 g twice daily. Continue on Lantus 10 units BID and SSI with CF 40, CR 15. HbA1C 8.3 in December resume home meds at d/c (8) Thoracic compression fracture: Plan: Unclear if these are acute on cervical spine imaging. Does not appear to be having pain here although difficulty communicating with patient, no tenderness on palpation however could be contributing to issues when up/ambulating -- if reported issues, consider checking with orthotics for brace for comfort Plan VTE prophylaxis-Lovenox 40 mg subcu daily due to prolonged stay and active cancer Continue Doxy IV BID, monitor WB updated at bedside 03/19 PT/OT consulted -- continued search for rehab, inpatient through the weekend Consider home w/ services if making enough improvement with tx of Lyme??? -- at this point does appear will still need SNF Admission and Anticipated Discharge Date Admission Date: March 11, 2022 Supervising Physician Co-Signing Physician Notes ANGELO Supervision Note: I did not personally see or examine the patient today, but I verified all cazares points of ANGELO Asencio's assessment and plan with the following exceptions/additions: None Subjective Eval this morning, episode of incontinence, getting cleaned up currently up in the chair feeling a little nauseated, did eat breakfast but not a great appetite reported discussed giving a little IVF and continue to hold her diuretics given lower BP. States her is on his way into the hospital. Continues to wait for rehab Review of Systems Review of Systems: All systems reviewed & are unremarkable except as noted in HPI & below Physical Exam Physical Exam: General: WD/WN female sitting up in recliner, does report again feeling fatigued/whiped out, NAD HEENT: eyes equal and reactive, mmm, trachea midline without deviation Resp CTAB, normal effort, no tachypnea/distress, on room air CV: RRR, no m/r/g, no calf tenderness, no pitting edema GI:+BS, soft, NT MSK/Neuro: expressive aphasia at baseline/R sided weakness at baseline, pleasant and cooperative, answering questions as able, follows commands Psych: alert to person/place/year, pleasant and cooperative Results & Data Results & Data ([facility]) Vital Signs (Past 12 Hours) Vital Signs Temp Pulse Resp BP BP Pulse Ox O2 Del Method 03/20/22 07:04 36.6 C 63 16 98/61 L 96 Room Air 03/19/22 21:58 36.6 C 69 17 100/64 93 Room Air Laboratory Results 03/20/22 03/20/22 03/19/22 Range/Units 06:09 06:09 20:22 WBC 2.51 L (4.8-10.8) K/ul RBC 4.36 (3.93-5.22) M/uL Hgb 12.9 (12.0-16.0) g/dl Hct 40.6 (34.1-44.9) % MCV 93.1 (80.0-100.0) fL MCH 29.6 (25.0-34.0) pg MCHC 31.8 L (32.0-36.0) g/dL RDW Std Deviation 52.3 H (36.4-46.3) fL RDW Coeff of Meghan 15.2 H (11.5-14.5) % Plt Count 113 L (130-400) K/uL MPV 12.0 (9.4-12.3) fL Immature Gran % (Auto) % Neut % (Auto) % Lymph % (Auto) % Graves % (Auto) % Eos % (Auto) % Baso % (Auto) % Neut # (Auto) (1.4-6.5) K/uL Lymph # (Auto) (1.2-3.4) K/uL Graves # (Auto) (0.24-0.82) K/uL Eos # (Auto) (0-0.50) K/uL Baso # (Auto) (0-0.2) K/uL Immature Gran # (Auto) (0.00-0.02) K/uL Sodium 140 (136-145) mmol/L Potassium 4.1 (3.5-5.1) mmol/L Chloride 108 H (98-107) mmol/L Carbon Dioxide 25 (21-32) mmol/L Anion Gap 7 (3-11) BUN 16 (6-23) mg/dl Creatinine 0.51 L (0.6-1.2) mg/dl Est Cr Clr Drug Dosing 121.0 ml/min Est GFR ( Amer) 112.9 ml/min Est GFR (Non-Af Amer) 97.4 ml/min BUN/Creatinine Ratio 31.4 H (10-20) Glucose 125 H (70-99(Fasting)) mg/dl POC Glucose 147 H (70-99) mg/dl Calcium 9.1 (8.5-10.1) mg/dl Magnesium 1.7 (1.7-2.4) mg/dl 03/19/22 03/19/22 03/19/22 Range/Units 17:20 12:13 07:18 WBC (4.8-10.8) K/ul RBC (3.93-5.22) M/uL Hgb (12.0-16.0) g/dl Hct (34.1-44.9) % MCV (80.0-100.0) fL MCH (25.0-34.0) pg MCHC (32.0-36.0) g/dL RDW Std Deviation (36.4-46.3) fL RDW Coeff of Meghan (11.5-14.5) % Plt Count (130-400) K/uL MPV (9.4-12.3) fL Immature Gran % (Auto) % Neut % (Auto) % Lymph % (Auto) % Graves % (Auto) % Eos % (Auto) % Baso % (Auto) % Neut # (Auto) (1.4-6.5) K/uL Lymph # (Auto) (1.2-3.4) K/uL Graves # (Auto) (0.24-0.82) K/uL Eos # (Auto) (0-0.50) K/uL Baso # (Auto) (0-0.2) K/uL Immature Gran # (Auto) (0.00-0.02) K/uL Sodium 142 (136-145) mmol/L Potassium 4.1 (3.5-5.1) mmol/L Chloride 109 H (98-107) mmol/L Carbon Dioxide 26 (21-32) mmol/L Anion Gap 7 (3-11) BUN 14 (6-23) mg/dl Creatinine 0.57 L (0.6-1.2) mg/dl Est Cr Clr Drug Dosing 108.2 ml/min Est GFR ( Amer) 108.9 ml/min Est GFR (Non-Af Amer) 93.9 ml/min BUN/Creatinine Ratio 24.6 H (10-20) Glucose 127 H (70-99(Fasting)) mg/dl POC Glucose 133 H 199 H (70-99) mg/dl Calcium 9.1 (8.5-10.1) mg/dl Magnesium 1.8 (1.7-2.4) mg/dl 03/19/22 Range/Units 07:18 WBC 2.20 L (4.8-10.8) K/ul RBC 4.00 (3.93-5.22) M/uL Hgb 11.8 L (12.0-16.0) g/dl Hct 36.6 (34.1-44.9) % MCV 91.5 (80.0-100.0) fL MCH 29.5 (25.0-34.0) pg MCHC 32.2 (32.0-36.0) g/dL RDW Std Deviation 51.5 H (36.4-46.3) fL RDW Coeff of Meghan 15.2 H (11.5-14.5) % Plt Count 140 (130-400) K/uL MPV 11.8 (9.4-12.3) fL Immature Gran % (Auto) 0.5 % Neut % (Auto) 59.5 % Lymph % (Auto) 24.1 % Graves % (Auto) 11.8 % Eos % (Auto) 2.7 % Baso % (Auto) 1.4 % Neut # (Auto) 1.31 L (1.4-6.5) K/uL Lymph # (Auto) 0.53 L (1.2-3.4) K/uL Graves # (Auto) 0.26 (0.24-0.82) K/uL Eos # (Auto) 0.06 (0-0.50) K/uL Baso # (Auto) 0.03 (0-0.2) K/uL Immature Gran # (Auto) 0.01 (0.00-0.02) K/uL Sodium (136-145) mmol/L Potassium (3.5-5.1) mmol/L Chloride (98-107) mmol/L Carbon Dioxide (21-32) mmol/L Anion Gap (3-11) BUN (6-23) mg/dl Creatinine (0.6-1.2) mg/dl Est Cr Clr Drug Dosing ml/min Est GFR ( Amer) ml/min Est GFR (Non-Af Amer) ml/min BUN/Creatinine Ratio (10-20) Glucose (70-99(Fasting)) mg/dl POC Glucose (70-99) mg/dl Calcium (8.5-10.1) mg/dl Magnesium (1.7-2.4) mg/dl PG Care Time/CCT Total # of Minutes Spent Total Time Spent with Patient: Total time spent is greater than 50% in coordination of care (as documented) at patient's floor/unit and/or counseling patient: Coding Level of Care Code 06763 Subseq Hosp Care Lvl 3 Diagnoses Falls frequently R29.6 Lyme disease A69.20 Hypomagnesemia E83.42 GBM (glioblastoma multiforme) C71.9 Hyperlipidemia E78.5 Hypertension I10 Type 2 diabetes mellitus E11.9 Thoracic compression fracture S22.000A
[2022-03-20] MEDS ORDERED: SODIUM CHLORIDE 0.9% 500 ML IV SCH (09:30)
[2022-03-20] MEDS: GABAPENTIN 100 MG CAP PO SCH ×3 (09:30→20:44)
[2022-03-20] MEDS: levETIRAcetam 500 MG TAB PO SCH ×2 (09:30→20:44)
[2022-03-20] MEDS: CHOLECALCIFEROL 5,000 UNITS 125 MCG TAB PO SCH (09:30)
[2022-03-20] MEDS: FLUoxetine HCL 10 MG CAP PO SCH (09:31)
[2022-03-20] MEDS: CYANOCOBALAMIN 1000 MCG/ML VIAL IM SCH (09:31)
[2022-03-20] MEDS: ENOXAPARIN INJ 40 MG/0.4 ML SYR SQ SCH (09:31)
[2022-03-20] MEDS: MAGNESIUM CHLORIDE W/CALCIUM 64MG DELAYED REL TAB PO SCH ×2 (09:31→20:45)
[2022-03-20] MEDS: INSULIN ASPART PER UNIT SC SCH ×4 (09:40→20:43)
[2022-03-20] MEDS: LANTUS PER UNIT CHARGE SQ SCH ×2 (09:41→20:44)
[2022-03-20] MEDS ORDERED: THIAMINE HCL 100 MG in SYRINGE 9 ML IV SCH (15:15)
[2022-03-20] MEDS: ATORVASTATIN 40 MG TAB PO SCH (20:44)
[2022-03-20] MEDS: THIAMINE HCL 100 MG in SYRINGE 9 ML IV SCH (20:45)
[2022-03-21] MEDS: DOXYCYCLINE HYCLATE 100 MG in DEXTROSE 5% 100 ML IV SCH ×2 (06:01→18:02)
[2022-03-21 08:22] LABS: Hematocrit (blood only) 38.2 % (34.1-44.9); Hemoglobin 12.5 g/dl (12.0-16.0); Mean Corpuscular Hemoglobin 29.6 pg (25.0-34.0); Mean Corpuscular Hgb Conc 32.7 g/dL (32.0-36.0); Mean Corpuscular Volume 90.5 fL (80.0-100.0); Mean Platelet Volume 11.4 fL (9.4-12.3); Platelet Count 135 K/uL (130-400); RDW Coefficient of Variation 15.2 % (11.5-14.5); RDW Standard Deviation 50.6 fL (36.4-46.3); Red Blood Count 4.22 M/uL (3.93-5.22); White Blood Count 2.92 K/ul (4.8-10.8)
[2022-03-21] MEDS: FLUoxetine HCL 10 MG CAP PO SCH (08:38)
[2022-03-21] MEDS: CHOLECALCIFEROL 5,000 UNITS 125 MCG TAB PO SCH (08:39)
[2022-03-21] MEDS: GABAPENTIN 100 MG CAP PO SCH ×3 (08:39→20:44)
[2022-03-21] MEDS: ENOXAPARIN INJ 40 MG/0.4 ML SYR SQ SCH (08:39)
[2022-03-21] MEDS: CYANOCOBALAMIN 1000 MCG/ML VIAL IM SCH (08:39)
[2022-03-21] MEDS: THIAMINE HCL 100 MG in SYRINGE 9 ML IV SCH ×2 (08:39→20:43)
[2022-03-21] MEDS: MAGNESIUM CHLORIDE W/CALCIUM 64MG DELAYED REL TAB PO SCH ×2 (08:39→20:42)
[2022-03-21] MEDS: levETIRAcetam 500 MG TAB PO SCH ×2 (08:39→20:43)
[2022-03-21 08:47] LABS: BUN Creatinine Ratio 23.6 (10-20); Creatinine Clr Calc Pharmacy 112.2 ml/min; Est GFR (African American) 110.1 ml/min; Magnesium 1.8 mg/dl (1.7-2.4)
[2022-03-21] MEDS: INSULIN ASPART PER UNIT SC SCH ×4 (09:13→20:51)
[2022-03-21] MEDS: LANTUS PER UNIT CHARGE SQ SCH ×2 (09:13→20:51)
--- NOTE | 2022-03-21 09:20 | Hospitalist Progress Note ---
Date of Service March 21, 2022 Assessment & Plan (1) Falls frequently: Plan: Imaging shows a subtle superior endplate compression at T2 and T3 without retropulsion, technically age-indeterminate. Otherwise imaging negative for fractures, dislocation, or otherwise acute process. CK on admit 321, likely 2nd to fall -- wnl on repeat with continued statin use Patient without any complaints at this time. Feels she is weak, having trouble walking without assistance at home. Discussed with her oncologist 03/16 -no need for steroids. Planning to follow-up in 6 weeks with repeat brain MRI at that time which their office will arrange. Per /discussion with oncology, her temozolomide is for maintenance, ok to hold off further while inpatient rehab given barriers to placement w/ $$ of chemo meds Planning on placement due to ongoing concern for safety at home and no significant reversible etiology at this time. B12 level for completeness given balance issues as well as weakness --> low normal at 196, IM replacement while inpatient, continue PO at discharge Lyme disease testing checked for completeness given weakness/falls -- see below, IgM equivocal, IgG positive anaplasmosis PCR pending B1 level pending -- empiric thiamine, started IV 100mg BID PT/OT--> CM following for SNF placement. #1 choice [place], continued inpatient stay through the weekend at least. Patient is still weak, likely needing SNF at d/c but will monitor with continued holding of her irbesartan, will give 500cc NSS for some mild dehydration/reported decreased PO intake 03/21 1gm IV mag given yesterday NSS @ 500cc/ ordered for today for continued decreased PO intake--> BP 107/72 continue to hold the irbesartan, check weight may be able to discontinue this/resume only if PO intake acceptable given patient BP lower normal w/ weakness/falls. Orthostatics w/ BP unchanged, however HR elevated from 77 to 109 w/ standing (2) Lyme disease: Plan: IgM equivocal, IgG positive Discussed with , they live in the [facility], never tx for lyme in past --> check peripheral smear, anaplasmosis/bab -- peripheral smear negative, PCR pending --> Started Doxy 100mg IV BID 03/18 to cover for possible co-infection with anaplasmosis Monitor WB, pending (3) Hypomagnesemia: Plan: low, replaced, continued continues on PO Mag-Chl 128mg BID --rx at d/c Mag 1.8 after additional 1gm IV on 03/21, will increase PO to TID (4) GBM (glioblastoma multiforme): Plan: Continue Keppra 500 mg twice daily given new onset seizure activity in December after diagnosis No evidence for seizure activity presently CT: no changes to mass. Has baseline expressive aphasia, right-sided weakness/numbness. s/p radiation therapy, Temodar/bevacizumab NO NEED FOR CHEMO WHILE SNF ABOVE, CM LOOKING TO EXPAND SEARCH (5) Hyperlipidemia: Plan: Continue atorvastatin CK elevated to 321 on admit --> repeat 15 (6) Hypertension: Plan: BP stable borderline 93/59 AM 03/18, decreased PO intake but improved PO intake 03/19 Given 500cc NSS and placed irbesartan on hold 03/19 and patient was looking MUCH better in afternoon Still slightly dehydrated on exam, ordered additional gentle hydration Consider decreased irbesartan based on PO intake -- said her drinking water is a struggle at times and always pushing her to take oral fluids at home check orthostatics as able (7) Type 2 diabetes mellitus: Plan: Home regimen is glargine 20 units HS, metformin 1 g twice daily. Continue on Lantus 10 units BID and SSI with CF 40, CR 15. HbA1C 8.3 in December resume home meds at d/c (8) Thoracic compression fracture: Plan: Unclear if these are acute on cervical spine imaging. Does not appear to be having pain here although difficulty communicating with patient, no tenderness on palpation however could be contributing to issues when up/ambulating -- if reported issues, consider checking with orthotics for brace for comfort Plan VTE prophylaxis-Lovenox 40 mg subcu daily due to prolonged stay and active can cer Continue Doxy IV BID, monitor WB Continue holding irbesartan 500cc NSS ordered for today monitor weight/I&O PT/OT consulted -- continued search for rehab, inpatient through the weekend Consider home w/ services if making enough improvement with tx of Lyme??? -- at this point does appear will still need SNF Admission and Anticipated Discharge Date Admission Date: March 11, 2022 Subjective eval this morning, laying flat in bed, awoke up. she states still feeling tired, not much appetite. no nausea or vomiting, prior moving her bowels to be in later today will order a little IVF and continue to hold her diuretics, discussed holding/discontinuing/decreasing the dose as needed. she does note all the testing and lab sticks, will hold off continued sticks for tomorrow unless needed. questions/concerns addressed at this time. do note general pallor. given low B12/normocytic MCV, will check iron panel/replacement as needed. Review of Systems Review of Systems: All systems reviewed & are unremarkable except as noted in HPI & below Physical Exam Physical Exam: General: WD/WN laying in bed sleeping upon arrival, easily awoken, NAD but reports still not much appetitie HEENT: eyes equal and reactive, mmm, trachea midline without deviation Resp CTAB, normal effort, no tachypnea/distress, on room air CV: RRR, no m/r/g, no calf tenderness, no pitting edema GI:+BS, soft, NT MSK/Neuro: expressive aphasia at baseline/R sided weakness at baseline, pleasant and cooperative, answering questions as able, follows commands Psych: alert to person/place/year, pleasant and cooperative Results & Data Results & Data ([facility]) Vital Signs (Past 12 Hours) Vital Signs Temp Pulse Resp BP Pulse Ox O2 Del Method 03/21/22 07:26 36.6 C 71 16 105/68 96 Room Air 03/20/22 21:30 36.9 C 68 18 94/73 L 97 Room Air Laboratory Results 03/21/22 03/21/22 03/21/22 Range/Units 17:06 11:58 08:01 WBC (4.8-10.8) K/ul RBC (3.93-5.22) M/uL Hgb (12.0-16.0) g/dl Hct (34.1-44.9) % MCV (80.0-100.0) fL MCH (25.0-34.0) pg MCHC (32.0-36.0) g/dL RDW Std Deviation (36.4-46.3) fL RDW Coeff of Meghan (11.5-14.5) % Plt Count (130-400) K/uL MPV (9.4-12.3) fL Sodium (136-145) mmol/L Potassium (3.5-5.1) mmol/L Chloride (98-107) mmol/L Carbon Dioxide (21-32) mmol/L Anion Gap (3-11) BUN (6-23) mg/dl Creatinine (0.6-1.2) mg/dl Est Cr Clr Drug Dosing ml/min Est GFR ( Amer) ml/min Est GFR (Non-Af Amer) ml/min BUN/Creatinine Ratio (10-20) Glucose (70-99(Fasting)) mg/dl POC Glucose 111 H 160 H (70-99) mg/dl Calcium (8.5-10.1) mg/dl Magnesium (1.7-2.4) mg/dl Iron 64 (35-150) mcg/dl TIBC 324 (250-450) mcg/dl Unsaturated IBC 260 (155-355) mcg/dl Transferrin % Sat 20 (15-50) % Ferritin 45.2 (8-388) ng/ml 03/21/22 03/21/22 03/21/22 Range/Units 08:01 08:01 07:39 WBC 2.92 L (4.8-10.8) K/ul RBC 4.22 (3.93-5.22) M/uL Hgb 12.5 (12.0-16.0) g/dl Hct 38.2 (34.1-44.9) % MCV 90.5 (80.0-100.0) fL MCH 29.6 (25.0-34.0) pg MCHC 32.7 (32.0-36.0) g/dL RDW Std Deviation 50.6 H (36.4-46.3) fL RDW Coeff of Meghan 15.2 H (11.5-14.5) % Plt Count 135 (130-400) K/uL MPV 11.4 (9.4-12.3) fL Sodium 141 (136-145) mmol/L Potassium 4.0 (3.5-5.1) mmol/L Chloride 108 H (98-107) mmol/L Carbon Dioxide 25 (21-32) mmol/L Anion Gap 8 (3-11) BUN 13 (6-23) mg/dl Creatinine 0.55 L (0.6-1.2) mg/dl Est Cr Clr Drug Dosing 112.2 ml/min Est GFR ( Amer) 110.1 ml/min Est GFR (Non-Af Amer) 95.0 ml/min BUN/Creatinine Ratio 23.6 H (10-20) Glucose 136 H (70-99(Fasting)) mg/dl POC Glucose 138 H (70-99) mg/dl Calcium 9.0 (8.5-10.1) mg/dl Magnesium 1.8 (1.7-2.4) mg/dl Iron (35-150) mcg/dl TIBC (250-450) mcg/dl Unsaturated IBC (155-355) mcg/dl Transferrin % Sat (15-50) % Ferritin (8-388) ng/ml 03/20/22 Range/Units 20:39 WBC (4.8-10.8) K/ul RBC (3.93-5.22) M/uL Hgb (12.0-16.0) g/dl Hct (34.1-44.9) % MCV (80.0-100.0) fL MCH (25.0-34.0) pg MCHC (32.0-36.0) g/dL RDW Std Deviation (36.4-46.3) fL RDW Coeff of Meghan (11.5-14.5) % Plt Count (130-400) K/uL MPV (9.4-12.3) fL Sodium (136-145) mmol/L Potassium (3.5-5.1) mmol/L Chloride (98-107) mmol/L Carbon Dioxide (21-32) mmol/L Anion Gap (3-11) BUN (6-23) mg/dl Creatinine (0.6-1.2) mg/dl Est Cr Clr Drug Dosing ml/min Est GFR ( Amer) ml/min Est GFR (Non-Af Amer) ml/min BUN/Creatinine Ratio (10-20) Glucose (70-99(Fasting)) mg/dl POC Glucose 143 H (70-99) mg/dl Calcium (8.5-10.1) mg/dl Magnesium (1.7-2.4) mg/dl Iron (35-150) mcg/dl TIBC (250-450) mcg/dl Unsaturated IBC (155-355) mcg/dl Transferrin % Sat (15-50) % Ferritin (8-388) ng/ml PG Care Time/CCT Total # of Minutes Spent Total Time Spent with Patient: Total time spent is greater than 50% in coordination of care (as documented) at patient's floor/unit and/or counseling patient: Coding Level of Care Code 21558 Subseq Hosp Care Lvl 2 Diagnoses Falls frequently R29.6 Lyme disease A69.20 Hypomagnesemia E83.42 GBM (glioblastoma multiforme) C71.9 Hyperlipidemia E78.5 Hypertension I10 Type 2 diabetes mellitus E11.9 Thoracic compression fracture S22.000A
[2022-03-21] MEDS ORDERED: SODIUM CHLORIDE 0.9% 500 ML IV SCH (11:15)
[2022-03-21 11:51] LABS: Ferritin 45.2 ng/ml (8-388)
[2022-03-21] MEDS: ATORVASTATIN 40 MG TAB PO SCH (20:44)
[2022-03-22] MEDS: DOXYCYCLINE HYCLATE 100 MG in DEXTROSE 5% 100 ML IV SCH (06:10)
[2022-03-22 08:05] VITALS: BP 107/66; PULSE 71; TEMP 97.9; O2SAT 96
[2022-03-22] MEDS: CHOLECALCIFEROL 5,000 UNITS 125 MCG TAB PO SCH (08:55)
[2022-03-22] MEDS: FLUoxetine HCL 10 MG CAP PO SCH (08:56)
[2022-03-22] MEDS: ENOXAPARIN INJ 40 MG/0.4 ML SYR SQ SCH (08:56)
[2022-03-22] MEDS: GABAPENTIN 100 MG CAP PO SCH (08:56)
[2022-03-22] MEDS: MAGNESIUM CHLORIDE W/CALCIUM 64MG DELAYED REL TAB PO SCH (08:57)
[2022-03-22] MEDS: CYANOCOBALAMIN 1000 MCG/ML VIAL IM SCH (08:57)
[2022-03-22] MEDS: levETIRAcetam 500 MG TAB PO SCH (08:57)
[2022-03-22] MEDS: INSULIN ASPART PER UNIT SC SCH (09:04)
[2022-03-22] MEDS: LANTUS PER UNIT CHARGE SQ SCH (09:04)
[2022-03-22] MEDS: THIAMINE HCL 100 MG in SYRINGE 9 ML IV SCH (09:09)
--- NOTE | 2022-03-22 10:24 | Discharge Summary ---
Date of Service March 22, 2022 Admission HPI Per Admitting Provider Mariella Zuñiga is a 71-year-old female with past medical history significant for hyperlipidemia, hypertension, diabetes glioblastoma multiforme [facility] is coming in with weakness. She has a history of frequent falls recently hitting her head and has a slight headache. She almost fell today, fortunately has been nearby and is able to help her, however she had difficulty standing due to weakness. She is feeling too weak to go home. She has no current complaints, without any fever chills, hip pain, chest pain, palpitation, shortness of breath, abdominal pain, nausea, vomiting. No reports of any seizures. On presentation to ED and throughout time in ED, vital signs have been within normal limits and stable. Her labs largely unremarkable. Her mag is slightly low at 1.5. CT of C-spine shows subtle superior endplate compression at T2 and T3 without retropulsion, age-indeterminate. No other fractures or subluxation noted. Head CT shows unchanged size and appearance of the partially calcified intra-axial mass within the periventricular parietal lobe. No midline shift, no other acute intracranial abnormality or calvarial fracture. CXR and pelvic XR do not show fractures, dislocations, or other acute processes. Admission Exam Per Admitting Provider General: awake, alert, no apparent distress Head: Normocephalic, atraumatic ENT: PERRL, EOMI, no pharyngeal exudate, mucous membranes moist Chest: Clear to auscultation, on room air, no adventitious breath sounds Cardiac: Regular rate and rhythm, no murmur, no JVD, normal peripheral pulses, good capillary refill Abdominal: NABS x 4 quadrants, soft, nontender to palpation, no rebound, guarding or tenderness Extremities: Normal inspection, no peripheral edema or erythema, calfs nontender to palpation Psych: Normal mood and affect Neuro: AAO x 3, strength intact bilaterally and rated 5/5, no motor deficits, speech is clear, no peripheral sensory deficits Skin: no rash or erythema Principal Diagnosis Falls, Weakness,Glioblastoma, B12 deficiency, Possible Lyme Discharge Exam General: WD/WN sitting up in chair, just had large BM, NAD HEENT: eyes equal and reactive, mmm, trachea midline without deviation Resp CTAB, normal effort, no tachypnea/distress, on room air CV: RRR, no m/r/g, no calf tenderness, no pitting edema GI:+BS, soft, NT MSK/Neuro: expressive aphasia at baseline/R sided weakness at baseline, pleasant and cooperative, answering questions as able, follows commands Psych: alert to person/place/year, pleasant and cooperative Discharge Data Allergies Allergy/AdvReac Type Severity Reaction Status Date / Time No Known Allergies Allergy Unknown * Verified 03/10/22 21:56 Consultations 03/10/22 19:52 ED Decision to Admit Stat Ordered Studies Cervical Spine CT 03/10/22 17:02 CT cervical spine wo con CT DOSE: 1466.44 mGy.cm CLINICAL HISTORY: 71 years-old Female with fall. Acute neck pain status post fall COMPARISON: Head CT of same day, CTA neck 04/05/2021 TECHNIQUE: Multiple axial CT images of the cervical spine were obtained without contrast. A dose lowering technique was utilized adhering to the principles of ALARA. FINDINGS: Multilevel degenerative changes include moderate disc space narrowing C5-C6 and C6-C7 with moderate multilevel facet arthrosis. Minimal superior endplate compression at T2 is mildly progressed from the prior study, likely chronic. No retropulsion. Partially imaged mild superior endplate compression at T3. Heterogeneous thyroid with numerous subcentimeter nodules and calcifications. The visualized lung apices appear clear. IMPRESSION: 1. No acute cervical spine fracture or subluxation identified. 2. Subtle superior endplate compression at T2 and T3 without retropulsion, technically age-indeterminate. No acute fracture line identified. ACT 112: Negative or not required by law. The above report was generated using voice recognition software. It may contain grammatical, syntax or spelling errors. Electronically signed by: Luis Medina M.D. 03/10/2022 7:[address] 03/10/22 17:02 CT head/brain wo con CLINICAL HISTORY: 71 years-old Female with fall. Acute head trauma status post fall. History of intracranial glioma neoplasm TECHNIQUE: Multiple axial CT images of the head were obtained without contrast. A dose lowering technique was utilized adhering to the principles of ALARA. COMPARISON: Brain MRI 01/01/2022, head CT 12/31/2021 FINDINGS: No acute intracranial hemorrhage, midline shift, hydrocephalus, territorial is chemia or abnormal extra-axial collection. Lobular partially calcified left parietal/periventricular mass measuring up to approximately 4 cm with adjacent vasogenic edema appears similar to prior. Unchanged mild mass effect upon the atria left lateral ventricle. Involutional changes with chronic microvascular ischemic disease. The calvarium is intact. Prior bilateral lens repair. The paranasal sinuses, mastoid air cells, and middle ear cavities are clear. IMPRESSION: 1. No acute intracranial abnormality or calvarial fracture. 2. Unchanged size and appearance of the partially calcified intra-axial mass within the periventricular left parietal lobe, better characterized on the 01/01/2022 brain MRI. 3. No midline shift. ACT 112: Negative or not required by law. The above report was generated using voice recognition software. It may contain grammatical, syntax or spelling errors. Electronically signed by: Luis Medina M.D. 03/10/2022 7:24 PM Pelvis X-Ray 03/10/22 17:02 XR pelvis 1-2V routine HISTORY: 71 years-old Female fall acute pelvic pain status post fall COMPARISON: None TECHNIQUE: AP view of the pelvis FINDINGS: Moderate osteoarthritis of the hips. No acute fracture, dislocation or avascular necrosis. A catheter projects over the midline pelvis. Arterial calcifications. Pelvic basin calcifications suggestive of phleboliths. IMPRESSION: No acute fracture or dislocation. ACT 112: Negative or not required by law. The above report was generated using voice recognition software. It may contain grammatical, syntax or spelling errors. Electronically signed by: Luis Medina M.D. 03/10/2022 6:08 PM Chest X-Ray 03/10/22 17:03 XR chest 1V portable HISTORY: 71 years-old Female weakness acute weakness COMPARISON: Chest radiograph 12/31/2021 TECHNIQUE: AP view of the chest FINDINGS: Cardiac silhouette is enlarged. No pneumothorax, pleural effusion, airspace consolidation or overt pulmonary edema. Bones of the chest appear grossly intact. IMPRESSION: No acute process. ACT 112: Negative or not required by law. The above report was generated using voice recognition software. It may contain grammatical, syntax or spelling errors. Electronically signed by: Luis Medina M.D. 03/10/2022 6:05 PM Brain MRI 03/11/22 13:23 MR brain wo/w con CLINICAL HISTORY: progressive weakness, Glioblastoma TECHNIQUE: Multiplanar and multisequence MR images of the brain were obtained prior to and following administration of gadolinium contrast. Comparison: Comparison is made to MRI brain 12/22/2021 FINDINGS: An ill-defined lobular left parietal periventricular mass with T1 hyperintensity is essentially unchanged in size from prior exam. This lesion has however decreased in size from outside hospital exam of 04/06/2021. Compared to the prior exam, there is more conspicuous peripheral enhancement, concerning for residual viable tumor. A small amount of susceptibility artifact is again seen surrounding it. There is surrounding vasogenic edema which is increased from prior exam. Flow voids of the major intracranial arterial vessels are identified. The imaged portions of the paranasal sinuses, mastoid air cells, and orbits are unremarkable. IMPRESSION: Compared to the prior exam, the lobular left parietal periventricular mass is unchanged in size but demonstrates increased enhancement and vasogenic edema. Findings may represent post radiation changes or residual viable tumor. Correla tion with treatment schedule is recommended. ACT 112: Negative or not required by law. Electronically signed by: Naeem Sanchez M.D. 03/11/2022 6:03 PM Elbow X-Ray 03/11/22 13:32 XR shoulder RT min 2V routine, XR elbow RT min 3V routine, XR humerus RT 2V CLINICAL HISTORY: right humerus/elbow/shoulder pain s/p fall TECHNIQUE: 3 views of the right shoulder , 2 views of the right humerus, and 3 views of the right elbow were obtained. Comparison: None available at the time of this dictation. FINDINGS: There is no evidence of an acute fracture. Degenerative changes are seen in the glenohumeral joint and elbow. The overlying soft tissues are unremarkable. The visualized portions of the lungs are clear. IMPRESSION: Degenerative changes without evidence of acute abnormality. ACT 112: Negative or not required by law. Electronically signed by: Naeem Sanchez M.D. 03/11/2022 2:23 PM Humerus X-Ray 03/11/22 13:32 XR shoulder RT min 2V routine, XR elbow RT min 3V routine, XR humerus RT 2V CLINICAL HISTORY: right humerus/elbow/shoulder pain s/p fall TECHNIQUE: 3 views of the right shoulder , 2 views of the right humerus, and 3 views of the right elbow were obtained. Comparison: None available at the time of this dictation. FINDINGS: There is no evidence of an acute fracture. Degenerative changes are seen in the glenohumeral joint and elbow. The overlying soft tissues are unremarkable. The visualized portions of the lungs are clear. IMPRESSION: Degenerative changes without evidence of acute abnormality. ACT 112: Negative or not required by law. Electronically signed by: Naeem Sanchez M.D. 03/11/2022 2:23 PM Shoulder X-Ray 03/11/22 13:32 XR shoulder RT min 2V routine, XR elbow RT min 3V routine, XR humerus RT 2V CLINICAL HISTORY: right humerus/elbow/shoulder pain s/p fall TECHNIQUE: 3 views of the right shoulder , 2 views of the right humerus, and 3 views of the right elbow were obtained. Comparison: None available at the time of this dictation. FINDINGS: There is no evidence of an acute fracture. Degenerative changes are seen in the glenohumeral joint and elbow. The overlying soft tissues are unremarkable. The visualized portions of the lungs are clear. IMPRESSION: Degenerative changes without evidence of acute abnormality. ACT 112: Negative or not required by law. Electronically signed by: Naeem Sanchez M.D. 03/11/2022 2:23 PM Hospital Course (1) Falls frequently: Imaging shows a subtle superior endplate compression at T2 and T3 without retropulsion, technically age-indeterminate. Otherwise imaging negative for fractures, dislocation, or otherwise acute process. CK on admit 321, likely 2nd to fall -- wnl on repeat with continued statin use Patient without any complaints at this time. Feels she is weak, having trouble walking without assistance at home. Discussed with her oncologist 03/16 -no need for steroids. Planning to follow-up in 6 weeks with repeat brain MRI at that time which their office will arrange. Per /discussion with oncology, her temozolomide is for maintenance, ok to hold off further while inpatient rehab given barriers to placement w/ $$ of chemo meds Planning on placement due to ongoing concern for safety at home and no significant reversible etiology at this time. B12 level --> low normal at 196, IM replacement while inpatient, continued PO at discharge Lyme disease testing checked for completeness given weakness/falls -- see below, IgM equivocal, IgG positive anaplasmosis PCR pending at d/c Continued Doxy BID for Lyme while awaiting WB given reporting living in [facility]/never treated in the past B1 level pending -- empiric thiamine, started IV 100mg BID inpatient. can f/u outpt Prior to discharge, reached back out to heme/oncology to consider steroids. They had been tapering before, declined restarting previously but given the vasogenic edema on MRI, ok w/ Dr Green/decision to start decadron 4mg PO daily at d/c and have close f/u with [facility] next week PT/OT--> CM following for SNF placement, arrangements made for transport Patient is still weak (hopeful improvement w/ Doxy/B12) and started Decadron prior to d/c as above (2) Lyme disease: IgM equivocal, IgG positive Discussed with , they live in the [facility] [facility], never tx for lyme in past --> check peripheral smear, anaplasmosis/bab -- peripheral smear negative, PCR pending --> Started Doxy 100mg IV BID 03/18 to cover for possible co-infection with anaplasmosis -- continued to complete course with PO at d/c WB pending at discharge (3) Hypomagnesemia: low, replaced, continued PO supplementation at discharge (4) GBM (glioblastoma multiforme): Continue Keppra 500 mg twice daily given new onset seizure activity in December after diagnosis No evidence for seizure activity presently CT: no changes to mass. Has baseline expressive aphasia, right-sided weakness/numbness. s/p radiation therapy, Temodar/bevacizumab DECADRON 4mg PO AT D/C, close F/U [facility] next week for titrations (5) Hyperlipidemia: Continue atorvastatin CK elevated to 321 on admit --> repeat 15 (6) Hypertension: BP stable borderline 93/59 AM 03/18, decreased PO intake but improved PO intake 03/19 and then subsequently placed irbesartan on hold/IVF NSS and discontinued irbesartan at discahrge given poor PO intake Decadron as above, to monitor BP/resume if needed for elevated BP BP stable/improved prior to d/c (7) Type 2 diabetes mellitus: Home regimen is glargine 20 units HS, metformin 1 g twice daily. Continue on Lantus 10 units BID and SSI with CF 40, CR 15. HbA1C 8.3 in December resumed home meds at d/c (8) Thoracic compression fracture: Unclear if these are acute on cervical spine imaging. Does not appear to be having pain here although difficulty communicating with patient, no tenderness on palpation however could be contributing to issues when up/ambulating -- if reported issues, consider checking with orthotics for brace for comfort Plan VTE prophylaxis-Lovenox 40 mg subcu daily due to prolonged stay and active cancer Discharged to SNF Total Time Total Time Spent Total Time Spent (In Minutes): 50 Discharge Plan Discharge Items Patient Disposition: Transfer [facility] Reason For Visit: WEAKNESS, FALLS Discharge Diagnosis: Weakness, Falls, B12 deficiency, Possible Lyme Disease, Glioblastoma Goals: You have been hospitalized for an acute medical problem. During your stay at [facility], we have made an effort to correct the problem that brought you to the hospital while keeping you as comfortable as possible. Medications were used to bring your condition under control and your discharge instructions will include directions for any medications you should take after leaving the hospital. Please make sure you see your Primary Care Provider as part of your follow up plan. Activity: As commented below Non-emergency contact: Primary Care Provider and Oncologist Call non-emergency contact if: you have any medication questions, your symptoms worsen, your pain is not controlled and you have a fever Follow-up/Referrals: Alysa Mccarthy PA-C [Physician Miniature Train [employer]] - (1 week) Annette Evans [Primary Care Provider] - Diet: Carb Consistent or DM2 and Heart Healthy Addtl Attending Provider Instructions: You have been hospitalized for weakness/falls at home. Prior discussion was had with oncology and you can hold your oral chemo for now while undergoing rehab and should follow up with them in a week locally with Alysa Mccarthy as we have started you on Decadron 4mg daily (a steroid) that will help with edema/symptoms and they can work on weaning down outpatient. Oncology plans on repeating the MRI of the brain in 5-6 weeks as an outpatient. I have stopped your irbesartan for now given lower blood pressures and decreased oral intake. This can be resumed if you have elevated blood pressures or weight gain once back on the decadron. I checked a B12 level which can contribute to weakness/neuropathy/confusion and this was low and you were given injections while in the hospital and should continue 1000mcg daily. I also checked a Lyme test which is positive but confirmatory testing is pending. We have started you on doxycycline 100mg twice daily and you should continue this to complete a ten day course. You have six additional days. Please follow up with primary care in the next week to monitor your progress. Please return to the ER with any worsening confusion, chest pain, shortness of breath or for any other symptoms concerning for you. Take care! Pending Studies at Discharge: Yes Studies:: Western Blot testing for Lyme B1 Stand-Alone Forms: My [facility] Skilled Items Patient informed of condition?: Yes DNR: No Discharge Level of Care: Skilled Communicable Disease: No Discharge Prognosis: Stable Lines: None Urinary Catheter: No Medications and DC Order Prescriptions: New Mag 64 64 mg Tablet,Delayed Release (Dr/Ec) 128 mg PO TID 30 Days Qty: 180 0RF cholecalciferol (vitamin D3) 125 mcg (5,000 unit) Tablet 1,000 unit PO QAM 30 Days Qty: 30 0RF dexamethasone 4 mg tablet 4 mg PO DAILY Qty: 10 0RF cyanocobalamin (vitamin B-12) 1,000 mcg capsule 1,000 mcg PO DAILY Qty: 30 0RF Continued ondansetron HCl 8 mg tablet 8 mg PO Q8H PRN (Reason: Nausea) fluoxetine [Prozac] 10 mg capsule 10 mg PO QAM atorvastatin 40 mg tablet 40 mg PO HS metformin 1,000 mg tablet 1,000 mg PO BID amoxicillin 500 mg capsule 2,000 mg PO ONCE PRN (Reason: 1 hr prior to dental appt) gabapentin 100 mg capsule 100 mg PO TID nystatin [Nyamyc] 100,000 unit/gram powder 1 applic TOPICAL TID PRN (Reason: fungal infection) temozolomide 100 mg capsule 200 mg PO UD docusate sodium 100 mg capsule 100 mg PO BID PRN (Reason: Constipation) temozolomide 140 mg capsule 140 mg PO UD insulin glargine [Lantus Solostar U-100 Insulin] 100 unit/mL (3 mL) insulin pen 20 unit SUBCUT HS levetiracetam [Keppra] 500 mg tablet 500 mg PO BID Qty: 60 0RF Discontinued irbesartan 75 mg tablet 75 mg PO QAM Discharge Orders: Discharge Order (Routine); Ordered 03/22/22 Ordered By: Alysa Asencio Admission Data Admit Date/Time: 03/11/22 18:43 Attending Provider: Dominic Dickey Admit Provider: Mandeep Epperson Primary Care Provider: Annette Evans Other Providers: Mandeep Epperson ; Jeb Avalos Other Interventions: Discharge Summary Assessment (RN) Last Done: 03/22/22 10:46 Supervising Physician Co-Signing Physician Notes Attending Attestation & Discharge Note - Pt seen/examined, chart reviewed, care plan d/w ANGELO Asencio. I agree w/ the cazares components of her discharge documentation. 71yo female with GBM, DM, HTN - presented with weakness and falls. Underwent extensive w/u looking for etiology(s) for her presenting symptoms beyond her known Glioblastoma Multiforme. MRI brain with increasing vasogenic edema surrounding her GBM. B12 level low normal thus replaced. ?+lyme testing - treatment initiated. Started on decadron 4mg daily for intra-cerebral edema after correspondence with heme/onc. She is transferring to SNF post-discharge. Discharge exam - gen - NAD, sitting in chair, broca's type aphasia with word salad type speech mouth - MMM neck - no JVD heart - RRR, s1 s2 lungs - CTA b/l abd - soft NT ND BS+ ext - no edema, pulses 2+ b/l Dominic Dickey MD Coding Level of Care Code D/C DAY MANAGEMENT >30 MINS Diagnoses Falls frequently R29.6 Lyme disease A69.20 Hypomagnesemia E83.42 GBM (glioblastoma multiforme) C71.9 Hyperlipidemia E78.5 Hypertension I10 Type 2 diabetes mellitus E11.9 Thoracic compression fracture S22.000A
[2022-03-22] MEDS ORDERED: dexAMETHasone 1 MG TAB PO SCH (10:35)
[2022-03-22] MEDS ORDERED: dexAMETHasone 4 MG TAB PO SCH (11:00)
[2022-03-23 07:47] LABS: 18KDIGG Band REACTIVE; 23KDIGG Band REACTIVE; 23KDIGM Band REACTIVE; 28KDIGG Band NON-REACTIVE; 30KDIGG Band NON-REACTIVE; 39KDIGG Band REACTIVE; 39KDIGM Band NON-REACTIVE; 41KDIGG Band NON-REACTIVE; 41KDIGM Band NON-REACTIVE; 45KDIGG Band NON-REACTIVE; 58KDIGG Band NON-REACTIVE; 66KDIGG Band NON-REACTIVE; 93KDIGG Band NON-REACTIVE; Lyme Antibodies, WB IgG NEGATIVE (NEGATIVE); Lyme Antibodies, WB IgM NEGATIVE (NEGATIVE)
[2022-03-23 17:17] LABS: Babesia microti DNA Not Detected (Not Detected)
== END 2022-03-22 11:40 | DRG 552 ==
LOC: ED 16:34 → 3N 16:34 → SUATTDRO 23:06
DX: Z79.52 Long term (current) use of systemic steroids; I10 Essential (primary) hypertension; S22.030A Wedge compression fracture of third thoracic vertebra, initial encounter for closed fracture; Z79.4 Long term (current) use of insulin; S22.020A Wedge compression fracture of second thoracic vertebra, initial encounter for closed fracture; E11.9 Type 2 diabetes mellitus without complications; F80.1 Expressive language disorder; E83.42 Hypomagnesemia; E78.5 Hyperlipidemia, unspecified; A69.20 Lyme disease, unspecified; Z68.34 Body mass index [BMI] 34.0-34.9, adult; R29.6 Repeated falls; C71.9 Malignant neoplasm of brain, unspecified; Z96.653 Presence of artificial knee joint, bilateral; Z79.84 Long term (current) use of oral hypoglycemic drugs; G40.89 Other seizures; W18.39XA Other fall on same level, initial encounter; Y92.89 Other specified places as the place of occurrence of the external cause; E66.9 Obesity, unspecified